=== PATIENT | male | born 1970 | race Caucasian/White ===

== ENCOUNTER → 2019-09-10 12:02 | Outpatient (CLI) | payer OTHER, SELFPAY ==
[2015-09-08 00:31] VITALS: BMI 41.5
[2019-09-10 15:16] LABS: Absolute Lymphocyte Count 1.48 X10^3/uL (0.83-4.51); Absolute Neutrophil Count 5.1 X10^3/uL (2.0-7.7); Basophil# 0.05 X10^3/uL; Basophil% 0.7 % (0-1); Eosinophil# 0.06 X10^3/uL; Eosinophils% 0.8 % (0-5); Hematocrit 48.1 % (40-54); Hemoglobin 15.9 g/dL (13.0-16.5); Lymphocyte # 1.48 X10^3/ul (4.0); Lymphocyte % 20.2 % (19-41); Mean Corp Hgb Conc 33.1 g/dL (32-36); Mean Corpuscular Hgb 29.1 pg (27.0-32.0); Mean Corpuscular Volume 88.1 fL (80-94); Mean Platelet Vol. 10.6 fl (6.2-12.0); Monocyte% 8.2 % (0-10); NRBC Flagged by Analyzer 0 % (0-5); Neutrophil # 5.08 X10^3/uL (2.7-7.7); Neutrophil % 69.3 % (47-70); Platelet Count 320 K/mm3 (150-450); RBC Distribution Width CV 13.5 % (11.6-14.6); RBC Distribution Width SD 43.5 fl (35.1-43.9); Red Blood Count 5.46 M/mm3 (4.6-6.2); White Blood Count 7.3 K/mm3 (4.4-11.0)
[2019-09-10 16:00] LABS: AST(SGOT) 22 U/L (15-37); Alanine Aminotransfer ALT/SGPT 38 U/L (16-61); Albumin, Serum 4.1 g/dL (3.2-5.0); Alkaline Phosphatase 73 U/L (45-117); Anion Gap 6 (5-15); BUN 9 mg/dL (7-18); BUN/Creat Ratio 9.3 RATIO (10-20); Calcium,Total 9.5 mg/dL (8.5-10.1); Chloride 102 mmol/L (98-107); Cholesterol 176 mg/dL (200); Creatinine, Serum 0.97 mg/dL (0.70-1.30); EST Glomerular Filtration Rate 87 mL/min (>60); Est Glom Filt Rate - Afr Amer 105 mL/min (>60); Globulin 4.2 g/dL (2.2-4.2); Glucose 101 mg/dL (74-106); High Density Lipoprotein 30 mg/dL; Potassium 3.4 mmol/L (3.5-5.1); Protein, Total 8.3 g/dL (6.4-8.2); Sodium Level 137 mmol/L (136-145); T4 Free Direct 0.92 ng/dL (0.76-1.46); Triglycerides 157 mg/dL; Very Low Density Lipoprotein 31 mg/dL (5-40)
[2019-09-11 10:25] LABS: Hemoglobin A1c 5.9 % (4.2-6.3)
[2019-09-12 16:42] LABS: Anti-Thyroglobulin AB < 1.0 IU/mL (0.0-0.9); Thyroglobulin, Serum Qt. 8.1 ng/mL (1.4-29.2); Thyroid Peroxidase AB < 9 IU/mL (0-34)
== END ==
PROVIDERS: PCP Family Medicine; Referring Provider Family Medicine; Visit Provider Family Medicine
DX: E01.0 Iodine-deficiency related diffuse (endemic) goiter (principal); F17.200 Nicotine dependence, unspecified, uncomplicated; I10 Essential (primary) hypertension
CPT/HCPCS: 36415; 80053; 80061; 83036; 84432; 84439; 84443; 85025; 86376; 86800

== ENCOUNTER → 2019-10-02 14:53 | Outpatient (CLI) | payer OTHER, SELFPAY ==
--- NOTE | 2019-10-02 15:01 | US_ITS ---
STUDY: THYROID ULTRASOUND REASON FOR EXAM: Male, 49 years old. Thyromegaly TECHNIQUE: Ultrasound evaluation of the thyroid was performed with real-time and static stock[place]-scale imaging. COMPARISON: None. FINDINGS: RIGHT LOBE: The right lobe of the thyroid gland is slightly enlarged and measures 5 cm x 2.2 cm x 1.7 cm. There is a homogeneous echotexture. There are no demonstrated solid, cystic or complex lesions. LEFT LOBE: The left lobe of the thyroid gland is slightly enlarged and measures 4.9 cm x 2.2 cm x 1.9 cm. There is a homogeneous echotexture. There are no demonstrated solid, cystic or complex lesions. ISTHMUS: The isthmus is enlarged and measures 5.0 mm. The regional lymph nodes are normal. US/Thyroid IMPRESSION: Mild thyromegaly. No solid or cystic nodule is seen. Electronically Signed: Tom Neves, at 15:58 EDT , Service support ,
== END ==
PROVIDERS: PCP Family Medicine; Referring Provider Family Medicine; Visit Provider Family Medicine
DX: E01.0 Iodine-deficiency related diffuse (endemic) goiter (principal)
CPT/HCPCS: 76536

== ENCOUNTER → 2019-11-07 16:21 | Outpatient (CLI) | payer OTHER, SELFPAY ==
[2019-11-07 18:18] LABS: Potassium 2.9 mmol/L (3.5-5.1)
== END ==
PROVIDERS: PCP Family Medicine; Referring Provider Family Medicine; Visit Provider Family Medicine
DX: I10 Essential (primary) hypertension (principal)
CPT/HCPCS: 36415; 84132

== ENCOUNTER → 2019-11-19 15:17 | Outpatient (CLI) | payer OTHER, SELFPAY ==
[2015-09-08 00:31] VITALS: BMI 41.5
[2019-11-19 18:44] LABS: Potassium 3.3 mmol/L (3.5-5.1)
== END ==
PROVIDERS: PCP Family Medicine; Referring Provider Family Medicine; Visit Provider Family Medicine
DX: E87.6 Hypokalemia (principal)
CPT/HCPCS: 36415; 84132

== ENCOUNTER → 2019-12-09 08:41 | Outpatient (CLI) | payer OTHER, SELFPAY ==
[2015-09-08 00:31] VITALS: BMI 41.5
[2019-12-09 10:09] LABS: Potassium 3.5 mmol/L (3.5-5.1)
== END ==
PROVIDERS: PCP Family Medicine; Referring Provider Family Medicine; Visit Provider Family Medicine
DX: E87.6 Hypokalemia (principal)
CPT/HCPCS: 36415; 84132

== ENCOUNTER → 2020-09-15 16:41 | Outpatient (CLI) | payer BC, SELFPAY ==
[2015-09-08 00:31] VITALS: BMI 41.5
[2020-09-15 18:01] LABS: Absolute Lymphocyte Count 1.66 X10^3/uL (0.83-4.51); Basophil# 0.04 X10^3/uL; Basophil% 0.5 % (0-1); Eosinophil# 0.05 X10^3/uL; Eosinophils% 0.7 % (0-5); Hematocrit 48.8 % (40-54); Hemoglobin 16.4 g/dL (13.0-16.5); Lymphocyte # 1.66 X10^3/ul (4.0); Lymphocyte % 22.3 % (19-41); Mean Corp Hgb Conc 33.6 g/dL (32-36); Mean Corpuscular Hgb 30.2 pg (27.0-32.0); Mean Corpuscular Volume 89.9 fL (80-94); Mean Platelet Vol. 10.3 fl (6.2-12.0); Monocyte% 9.4 % (0-10); NRBC Flagged by Analyzer 0 % (0-5); Neutrophil # 4.98 X10^3/uL (2.7-7.7); Neutrophil % 66.7 % (47-70); Platelet Count 351 K/mm3 (150-450); RBC Distribution Width CV 13.4 % (11.6-14.6); RBC Distribution Width SD 44.3 fl (35.1-43.9); Red Blood Count 5.43 M/mm3 (4.6-6.2); White Blood Count 7.5 K/mm3 (4.4-11.0)
[2020-09-15 18:36] LABS: Hemoglobin A1c 5.4 % (3.8-5.6)
[2020-09-15 18:37] LABS: ALB/GLOB Ratio 0.9 RATIO (0.9-2.4); AST(SGOT) 22 U/L (15-37); Alanine Aminotransfer ALT/SGPT 40 U/L (16-61); Alkaline Phosphatase 77 U/L (45-117); Anion Gap 8 (5-15); BUN 15 mg/dL (7-18); BUN/Creat Ratio 14.4 RATIO (10-20); Calcium,Total 9.2 mg/dL (8.5-10.1); Chloride 102 mmol/L (98-107); Cholesterol 193 mg/dL (200); Creatinine, Serum 1.04 mg/dL (0.70-1.30); EST Glomerular Filtration Rate 80 mL/min (>60); Est Glom Filt Rate - Afr Amer 97 mL/min (>60); Globulin 4.3 g/dL (2.2-4.2); Glucose 80 mg/dL (74-106); High Density Lipoprotein 30 mg/dL; Protein, Total 8.3 g/dL (6.4-8.2); Sodium Level 139 mmol/L (136-145); Thyroid Stim Hormone (TSH) 0.84 uIU/mL (0.358-3.74); Triglycerides 179 mg/dL; Very Low Density Lipoprotein 36 mg/dL (5-40)
== END ==
PROVIDERS: PCP Family Medicine; Visit Provider Family Medicine
DX: I10 Essential (primary) hypertension (principal); E66.01 Morbid (severe) obesity due to excess calories; R73.02 Impaired glucose tolerance (oral)
CPT/HCPCS: 36415; 80053; 80061; 83036; 84443; 85025

== ENCOUNTER → 2020-09-30 15:30 | Outpatient (CLI) | payer BC, SELFPAY ==
[2015-09-08 00:31] VITALS: BMI 41.5
[2020-09-30 18:01] LABS: Potassium 3.5 mmol/L (3.5-5.1)
== END ==
PROVIDERS: PCP Family Medicine; Referring Provider Family Medicine; Visit Provider Family Medicine
DX: E87.6 Hypokalemia (principal)
CPT/HCPCS: 36415; 84132

== ENCOUNTER 2021-08-06 07:47 | Outpatient (CLI) | payer BC, SELFPAY ==
[2021-08-06 07:50] LABS: Bacteria 0 SEEN /hpf (None Seen); Mucous, Urine 0 SEEN /hpf (<or=2+); Red Blood Cells-Urine 0 SEEN /hpf (0-5); Squamous Epithelial Cells - UA 0 SEEN /hpf (0-5); White Blood Cells 0 SEEN /hpf (0-5)
[2021-08-06 09:58] LABS: Color, Urine Yellow (Yellow); Glucose, Dipstick Normal (Normal); Ketone-Dipstick Negative (Negative); Leukocyte Esterase-Dipstick Negative /ul (Negative); Nitrite-Dipstick Negative (Negative); Occult Blood-Urine Negative /ul (Negative); Protein-Dipstick Negative (Negative); Urine Bilirubin Dipstick Negative (Negative); Urine Clarity Clear (Clear); Urine Urobilinogen Normal (Normal)
[2021-08-06 10:03] LABS: Absolute Lymphocyte Count 1.28 X10^3/uL (0.83-4.51); Absolute Neutrophil Count 3.6 X10^3/uL (2.0-7.7); Basophil# 0.03 X10^3/uL; Basophil% 0.5 % (0-1); Eosinophil# 0.05 X10^3/uL; Eosinophils% 0.9 % (0-5); Hematocrit 49.2 % (40-54); Hemoglobin 16.8 g/dL (13.0-16.5); Lymphocyte # 1.28 X10^3/ul (0.83-4.51); Lymphocyte % 23.2 % (19-41); Mean Corp Hgb Conc 34.1 g/dL (32-36); Mean Corpuscular Hgb 30.8 pg (27.0-32.0); Mean Corpuscular Volume 90.1 fL (80-94); Mean Platelet Vol. 10.8 fl (6.2-12.0); Monocyte# 0.57 X10^3/uL; Monocyte% 10.3 % (0-10); NRBC Flagged by Analyzer 0 % (0-5); Neutrophil # 3.57 X10^3/uL (2.7-7.7); Neutrophil % 64.7 % (47-70); Platelet Count 279 K/mm3 (150-450); RBC Distribution Width CV 13.7 % (11.6-14.6); RBC Distribution Width SD 45.2 fl (35.1-43.9); Red Blood Count 5.46 M/mm3 (4.6-6.2); White Blood Count 5.5 K/mm3 (4.4-11.0)
[2021-08-06 10:19] LABS: Hemoglobin A1c 5.7 % (3.8-5.6)
[2021-08-06 10:30] LABS: ALB/GLOB Ratio 0.9 RATIO (0.9-2.4); AST(SGOT) 23 U/L (15-37); Alanine Aminotransfer ALT/SGPT 36 U/L (16-61); Albumin, Serum 3.6 g/dL (3.2-5.0); Alkaline Phosphatase 66 U/L (45-117); Anion Gap 5 (5-15); BUN 15 mg/dL (7-18); BUN/Creat Ratio 15.2 RATIO (10-20); Calcium,Total 8.7 mg/dL (8.5-10.1); Chloride 103 mmol/L (98-107); Cholesterol 168 mg/dL (200); Creatinine, Serum 0.99 mg/dL (0.70-1.30); EST Glomerular Filtration Rate 85 mL/min (>60); Est Glom Filt Rate - Afr Amer 103 mL/min (>60); Glucose 105 mg/dL (74-106); High Density Lipoprotein 31 mg/dL; Potassium 3.5 mmol/L (3.5-5.1); Protein, Total 7.6 g/dL (6.4-8.2); Sodium Level 137 mmol/L (136-145); Triglycerides 146 mg/dL; Very Low Density Lipoprotein 29 mg/dL (5-40)
== END 2021-08-06 23:59 | disposition home or self-care (01) ==
LOC: MTLAB 07:48
PROVIDERS: PCP Family Medicine; Referring Provider Family Medicine; Visit Provider Family Medicine
DX: I10 Essential (primary) hypertension (principal); R73.02 Impaired glucose tolerance (oral)
CPT/HCPCS: 36415; 80053; 80061; 81001; 83036; 84443; 85025

== ENCOUNTER → 2022-03-04 | Outpatient (CLI) | payer BC, SELFPAY ==
[2022-03-04 10:07] LABS: Absolute Lymphocyte Count 1.26 X10^3/uL (0.83-4.51); Absolute Neutrophil Count 4.6 X10^3/uL (2.0-7.7); Basophil# 0.04 X10^3/uL; Basophil% 0.6 % (0-1); Eosinophils% 1.5 % (0-5); Hematocrit 46.7 % (40-54); Hemoglobin 15.8 g/dL (13.0-16.5); Lymphocyte # 1.26 X10^3/ul (0.83-4.51); Lymphocyte % 18.7 % (19-41); Mean Corp Hgb Conc 33.8 g/dL (32-36); Mean Corpuscular Hgb 30.8 pg (27.0-32.0); Mean Platelet Vol. 10.4 fl (6.2-12.0); Monocyte# 0.67 X10^3/uL; Monocyte% 9.9 % (0-10); NRBC Flagged by Analyzer 0 % (0-5); Neutrophil # 4.64 X10^3/uL (2.7-7.7); Neutrophil % 68.9 % (47-70); Platelet Count 334 K/mm3 (150-450); RBC Distribution Width CV 13.6 % (11.6-14.6); RBC Distribution Width SD 45.3 fl (35.1-43.9); Red Blood Count 5.13 M/mm3 (4.6-6.2); White Blood Count 6.7 K/mm3 (4.4-11.0)
[2022-03-04 10:26] LABS: Hemoglobin A1c 5.8 % (3.8-5.6)
[2022-03-04 10:31] LABS: ALB/GLOB Ratio 0.8 RATIO (0.9-2.4); AST(SGOT) 19 U/L (15-37); Alanine Aminotransfer ALT/SGPT 43 U/L (16-61); Albumin, Serum 3.6 g/dL (3.2-5.0); Alkaline Phosphatase 72 U/L (45-117); Anion Gap 7 (5-15); BUN 14 mg/dL (7-18); BUN/Creat Ratio 13.7 RATIO (10-20); Calcium,Total 8.6 mg/dL (8.5-10.1); Chloride 103 mmol/L (98-107); Cholesterol 176 mg/dL (200); Creatinine, Serum 1.02 mg/dL (0.70-1.30); EST Glomerular Filtration Rate 82 mL/min (>60); Est Glom Filt Rate - Afr Amer 99 mL/min (>60); Globulin 4.3 g/dL (2.2-4.2); Glucose 105 mg/dL (74-106); High Density Lipoprotein 27 mg/dL; Potassium 3.4 mmol/L (3.5-5.1); Protein, Total 7.9 g/dL (6.4-8.2); Sodium Level 140 mmol/L (136-145); Thyroid Stim Hormone (TSH) 1.12 uIU/mL (0.358-3.74); Triglycerides 186 mg/dL; Very Low Density Lipoprotein 37 mg/dL (5-40)
== END | disposition home or self-care (01) ==
LOC: MTLAB 08:02
PROVIDERS: PCP Family Medicine; Referring Provider Family Medicine; Visit Provider Family Medicine
DX: I10 Essential (primary) hypertension (principal); R73.02 Impaired glucose tolerance (oral)
CPT/HCPCS: 36415; 80053; 80061; 83036; 84443; 85025

== ENCOUNTER → 2022-07-09 | Outpatient (CLI) | payer BC, SELFPAY ==
[2022-07-09 08:06] LABS: Bacteria 0 SEEN /hpf (None Seen); Mucous, Urine 0 SEEN /hpf (<or=2+); Red Blood Cells-Urine 0 SEEN /hpf (0-5); Squamous Epithelial Cells - UA 0 SEEN /hpf (0-5); White Blood Cells 0 SEEN /hpf (0-5)
[2022-07-09 08:23] LABS: Absolute Lymphocyte Count 1.36 X10^3/uL (0.83-4.51); Absolute Neutrophil Count 3.4 X10^3/uL (2.0-7.7); Basophil# 0.03 X10^3/uL; Basophil% 0.5 % (0-1); Eosinophil# 0.07 X10^3/uL; Eosinophils% 1.2 % (0-5); Hematocrit 45.9 % (40-54); Hemoglobin 15.3 g/dL (13.0-16.5); Lymphocyte # 1.36 X10^3/ul (0.83-4.51); Lymphocyte % 24.2 % (19-41); Mean Corp Hgb Conc 33.3 g/dL (32-36); Mean Corpuscular Hgb 30.2 pg (27.0-32.0); Mean Corpuscular Volume 90.7 fL (80-94); Mean Platelet Vol. 10.1 fl (6.2-12.0); Monocyte# 0.73 X10^3/uL; NRBC Flagged by Analyzer 0 % (0-5); Neutrophil # 3.42 X10^3/uL (2.7-7.7); Neutrophil % 60.7 % (47-70); Platelet Count 338 K/mm3 (150-450); RBC Distribution Width CV 14.1 % (11.6-14.6); RBC Distribution Width SD 46.2 fl (35.1-43.9); Red Blood Count 5.06 M/mm3 (4.6-6.2); White Blood Count 5.6 K/mm3 (4.4-11.0)
[2022-07-09 08:50] LABS: Color, Urine Yellow (Yellow); Glucose, Dipstick Normal (Normal); Ketone-Dipstick Negative (Negative); Leukocyte Esterase-Dipstick Negative /ul (Negative); Nitrite-Dipstick Negative (Negative); Occult Blood-Urine Negative /ul (Negative); Protein-Dipstick 15 mg/dl (Negative); Specific Gravity, Urine 1.015 (1.002-1.030); Urine Bilirubin Dipstick Negative (Negative); Urine Clarity Clear (Clear); Urine Urobilinogen Normal (Normal); Urine pH 6.5 (5.0 - 8.0)
[2022-07-09 08:53] LABS: ALB/GLOB Ratio 0.8 RATIO (0.9-2.4); AST(SGOT) 15 U/L (15-37); Alanine Aminotransfer ALT/SGPT 33 U/L (16-61); Albumin, Serum 3.4 g/dL (3.2-5.0); Alkaline Phosphatase 65 U/L (45-117); Anion Gap 5 (5-15); BUN 11 mg/dL (7-18); BUN/Creat Ratio 11.6 RATIO (10-20); Calcium,Total 8.4 mg/dL (8.5-10.1); Chloride 104 mmol/L (98-107); Cholesterol 181 mg/dL (200); Creatinine, Serum 0.95 mg/dL (0.70-1.30); EST Glomerular Filtration Rate 89 mL/min (>60); Est Glom Filt Rate - Afr Amer 107 mL/min (>60); Globulin 4.1 g/dL (2.2-4.2); Glucose 111 mg/dL (74-106); High Density Lipoprotein 29 mg/dL; Potassium 3.8 mmol/L (3.5-5.1); Protein, Total 7.5 g/dL (6.4-8.2); Sodium Level 138 mmol/L (136-145); Thyroid Stim Hormone (TSH) 0.76 uIU/mL (0.358-3.74); Triglycerides 142 mg/dL; Very Low Density Lipoprotein 28 mg/dL (5-40)
[2022-07-09 08:55] LABS: Hemoglobin A1c 5.7 % (3.8-5.6)
== END | disposition home or self-care (01) ==
LOC: LAB 07:37
PROVIDERS: PCP Family Medicine; Visit Provider Family Medicine
DX: I10 Essential (primary) hypertension (principal); R73.02 Impaired glucose tolerance (oral)
CPT/HCPCS: 80053; 80061; 81001; 83036; 84443; 85025

== ENCOUNTER → 2023-01-14 | Outpatient (CLI) | payer BC, SELFPAY ==
[2023-01-14 08:03] LABS: Absolute Lymphocyte Count 1.42 X10^3/uL (0.83-4.51); Absolute Neutrophil Count 3.7 X10^3/uL (2.0-7.7); Basophil# 0.05 X10^3/uL; Basophil% 0.8 % (0-1); Eosinophil# 0.08 X10^3/uL; Eosinophils% 1.3 % (0-5); Hemoglobin 15.4 g/dL (13.0-16.5); Lymphocyte # 1.42 X10^3/ul (0.83-4.51); Lymphocyte % 23.9 % (19-41); Mean Corp Hgb Conc 33.5 g/dL (32-36); Mean Corpuscular Hgb 30.4 pg (27.0-32.0); Mean Corpuscular Volume 90.7 fL (80-94); Mean Platelet Vol. 10.3 fl (6.2-12.0); Monocyte# 0.69 X10^3/uL; Monocyte% 11.6 % (0-10); NRBC Flagged by Analyzer 0 % (0-5); Neutrophil # 3.68 X10^3/uL (2.7-7.7); Neutrophil % 62.1 % (47-70); Platelet Count 282 K/mm3 (150-450); RBC Distribution Width CV 13.6 % (11.6-14.6); RBC Distribution Width SD 45.1 fl (35.1-43.9); Red Blood Count 5.07 M/mm3 (4.6-6.2); White Blood Count 5.9 K/mm3 (4.4-11.0)
[2023-01-14 08:32] LABS: Hemoglobin A1c 5.4 % (3.8-5.6)
[2023-01-14 08:41] LABS: ALB/GLOB Ratio 0.8 RATIO (0.9-2.4); AST(SGOT) 18 U/L (15-37); Alanine Aminotransfer ALT/SGPT 33 U/L (16-61); Albumin, Serum 3.3 g/dL (3.2-5.0); Alkaline Phosphatase 70 U/L (45-117); Anion Gap 6 (5-15); BUN 12 mg/dL (7-18); BUN/Creat Ratio 12.6 RATIO (10-20); Calcium,Total 8.2 mg/dL (8.5-10.1); Chloride 105 mmol/L (98-107); Cholesterol 181 mg/dL (200); Creatinine, Serum 0.95 mg/dL (0.70-1.30); EST Glomerular Filtration Rate 88 mL/min (>60); Est Glom Filt Rate - Afr Amer 106 mL/min (>60); Globulin 3.9 g/dL (2.2-4.2); Glucose 112 mg/dL (74-106); High Density Lipoprotein 28 mg/dL; Potassium 3.3 mmol/L (3.5-5.1); Protein, Total 7.2 g/dL (6.4-8.2); Sodium Level 138 mmol/L (136-145); Thyroid Stim Hormone (TSH) 1.03 uIU/mL (0.358-3.74); Triglycerides 141 mg/dL; Very Low Density Lipoprotein 28 mg/dL (5-40)
== END | disposition home or self-care (01) ==
LOC: LAB 06:52
PROVIDERS: PCP Family Medicine; Referring Provider Family Medicine; Visit Provider Family Medicine
DX: I10 Essential (primary) hypertension (principal); R73.02 Impaired glucose tolerance (oral)
CPT/HCPCS: 36415; 80053; 80061; 83036; 84443; 85025

== ENCOUNTER → 2023-07-08 | Outpatient (CLI) | payer BC, SELFPAY ==
--- OUTSIDE RECORDS SUMMARY | 2023-07-08 07:27 | XMS RPT_ITS | CCD ---
Author Name Unknown Address [address] [place] [address] Organization [facility] Care Team Providers Care Tip Tester Name Role Phone OWEN SHETTY, KAITLYN Mcdonald Primary Care Physicia n PHYSICIAN, PATIENT UNSURE Primary Care Physician Unavailable WILMAN MALONE, DR LAMBERT Shannon Attending Maikel lujan PHYSICIAN, PATIENT UNSURE Primary Care Maikel SHETTY, KAITLYN Mcdonald Primary Care Florinava ilcipriano KAMARA MD, TORREY Skinner Attending Unavail cipriano ARANA MD, ROCIO Attending Unavailable OWEN SHETTY, KAITLYN Mcdonald Primary Care Unava ilable Allergies Allergy Classification Reported Allergen(s) Allergy Type Date of Onset Reaction(s) [place] (3 sources[place] [facility] [place]) Drug allergy [facility] Medications Current Medications Medication Drug Class(es) Dates Sig (Normalized) Sig (Original) acetaminophen 325 mg / HYDROcodone bitartrate 5 mg oral tablet (1 source) Opioid Agonist Start: 11-30-2022 End: 12-03-2022 take 1 tablet by mouth every six hours as needed for pain [place] 325- 5 mg oral tablet Dose = 1 tab(s), Oral, q6h, PRN as needed for pain, X 3 day(s), # 12 tab(s), 0 Refill(s), Plantar fasciitis, 133.9 Start Date: 11/30/22 Stop Date: 12/03/22 Status: Ordered amLODIPine 5 mg oral tablet (3 sources) Dihydropyridine Calcium Channel Jaye Start: 04-28-2020 take 1 tablet by mouth once daily amLODIPine 5 mg oral tablet See Instructions, take 1 tablet by mouth once daily, # 90 tab(s), 1 Refill(s), [facility] [address], cm, 12/07/18 14:52:00 EDT, Height, kg, 11/23/18 15:10:00 EDT, Dosing Weight Start Date: 04/28/20 Status: Ordered cephalexin 500 mg oral tablet (1 source) Cephalosporin Antibacterial Start: 01-26-2022 End: 02-02-2022 take 1 capsule by mouth four times daily Keflex use cephalexin Dose : 500 mg =, Oral, QID, X 7 day(s), # 28 cap(s), 0 Refill(s), 02/02/22 18:47:00 EDT, Puncture wound of right foot Foreign body in foot, 130.9 Start Date: 01/26/22 Stop Date: 02/02/22 Status: Ordered fluticasone propionate 0.05 mg/actuat metered dose nasal spray (3 sources) Corticosteroid Start: 11-23-2018 take 1 dose nasal route twice daily fluticasone 50 mcg/inh NASAL spray Dose = 1 spray(s), Nostril, each, BID, 0 Refill(s) Start Date: 11/23/18 Status: Ordered hydroCHLOROthiazide 12.5 mg / lisinopril 20 mg oral tablet (3 sources) Thiazide Diuretic, Angiotensin Converting Enzyme Inhibitor Start: 08-26-2019 take 2 tablets by mouth once daily hydrochlorothia zide-lisinopril 12.5 mg-20 mg oral tablet See Instructions, take 2 tablets by mouth once daily, # 180 tab(s), 0 Refill(s), [facility]: [facility], cm, 12/07/18 14:52:00 EDT, Height, kg, 11/23/18 15:10:00 EDT, Dosing Weight Start Date: 08/26/19 Status: Ordered Mucinex Sinus-Max 325 mg-10 mg-5 mg oral capsule (1 source) Start: 06-20-2022 End: 06-25-2022 take 1 capsule by mouth every four hours Mucinex Sinus-Max 325 mg-10 mg-5 mg oral capsule Dose = 2 cap(s), Oral, q4h, do not take tylenol while on this medication, X 5 day(s), # 60 cap(s), 0 Refill(s), Sinus congestion Start Date: 06/20/22 Stop Date: 06/25/22 Status: Ordered oxymetazoline hydrochloride 0.5 mg/ml nasal spray (1 source) Start: 06-20-2022 End: 06-23-2022 Afrin 0.05% nasal Mist Dose = 2 spray(s), Nasal, BID, X 3 day(s), # 15 mL, 0 Refill(s), Sinus congestion Start Date: 06/20/22 Stop Date: 06/23/22 Status: Ordered potassium chloride 10 meq oral tablet (3 sources) Start: 12-09-2019 take 1 tablet by mouth once daily potassium chloride 10 mEq oral tablet, extended release See Instructions, take 1 tablet by mouth once daily, # 30 tab(s), 0 Refill(s), [facility], cm, 12/07/18 14:52:00 EDT, Height, kg, 11/23/18 15:10:00 EDT, Dosing Weight Start Date: 12/09/19 Status: Ordered Problems Problem Classification Problem Date Documented Da te Episodic/Chronic Essential hypertension (3 sources) Hypertensive disorder 09-07-2015 Chronic Open wounds of extremities (1 source) Open wound of foot; Translations: [Puncture wound without foreign body, right foot, initial encounter] Onset: 01-26-2022 Episodic Other connective tissue disease (1 source) Plantar fascial fibromatosis; Translations: [Plantar fascial fibromatosis] Onset: 11-30-2022 Episodic Other upper respiratory disease (3 sources) Seasonal allergy 11-23-2018 Chronic Other upper respiratory disease (1 source) Nasal congestion; Translations: [Nasal congestion] Onset: 06-20-2022 Episodic Residual codes; unclassified (3 sources) Obstructive sleep apnea syndrome 11-23-2018 Chronic Spondylosis; intervertebral disc disorders; other back problems (3 sources) Backache 11-23-2018 Episodic Superficial injury; contusion (1 source) Superficial foreign body in foot; Translations: [Superficial foreign body, unspecified foot, initial encounter] Onset: 01-26-2022 Episodic Results Test Name Value Interpretation Reference Range Facil ity Vital Signs Date Time Vital Sign Value Performing Clinician Faci lity 11-30-2022 04:35-0400 Body height 172.[address] LAMBERT STOVALL MD [facility] 11-30-2022 04:35-0400 Body temperature 98.6 [degF] DR LAMBERT STOVALL MD [facility] 11-30-2022 04:35-0400 Body weight 133.[address] LAMBERT STOVALL MD [facility] 11-30-2022 04:35-0400 Diastolic Blood Pressure Non-Invasive [address] LAMBERT STOVALL MD [facility] 11-30-2022 04:35-0400 Heart rate 83 /min DR LAMBERT STOVALL MD [facility] 11-30-2022 04:35-0400 Respiratory rate 18 /min DR LAMBERT STOVALL MD [facility] 11-30-2022 04:35-0400 Systolic Blood Pressure Non-Invasive [address] LAMBERT STOVALL MD [facility] 06-20-2022 15:12-0500 Body height 172.7 cm TORREY KAMARA MD [facility] 06-20-2022 15:12-0500 Body temperature 98.78 [degF] TORREY KAMARA MD [facility] 06-20-2022 15:12-0500 Body weight 136.4 kg TORREY KAMARA MD [facility] 06-20-2022 15:12-0500 Diastolic Blood Pressure Non-Invasive 86 1 TORREY KAMARA MD [facility] 06-20-2022 15:12-0500 Heart rate 90 /min TORREY KAMARA MD [facility] 06-20-2022 15:12-0500 Respiratory rate 20 /min TORREY KAMARA MD [facility] 06-20-2022 15:12-0500 Systolic Blood Pressure Non-Invasive 148 1 TORREY KAMARA MD [facility] 01-26-2022 19:17-0400 Diastolic blood pressure 88 mm[Hg] ROCIO ARANA MD [facility] 01-26-2022 19:17-0400 Heart rate 85 /min ROCIO ARANA MD [facility] 01-26-2022 19:17-0400 Respiratory rate 18 /min ROCIO ARANA MD [facility] 01-26-2022 19:17-0400 Systolic blood pressure 143 mm[Hg] ROCIO ARANA MD [facility] 01-26-2022 17:31-0400 Body temperature 98.42 [degF] ROCIO ARANA MD [facility] 01-26-2022 17:31-0400 Diastolic blood pressure 89 mm[Hg] ROCIO ARANA MD [facility] 01-26-2022 17:31-0400 Heart rate 89 /min ROCIO ARANA MD [facility] 01-26-2022 17:31-0400 Respiratory rate 20 /min ROCIO ARANA MD [facility] 08-03-2022 17:31-0400 Systolic blood pressure 146 mm[Hg] ROCIO ARANA MD [facility] Encounters Encounter Date Encounter Type Care Provider Facility Start: 11-30-2022 End: 11-30-2022 Emergency department patient visit DR LAMBERT STOVALL MD Facility:B Start: 11-30-2022 End: 11-30-2022 Emergency department patient visit DR LAMBERT STOVALL MD [facility] Start: 06-20-2022 End: 06-20-2022 Emergency department patient visit KAITLYN WEAVER APRN-REFRIGERATOR ASSEMBLER Facility:[facility] Start: 06-20-2022 End: 06-20-2022 Emergency department patient visit TORREY KAMARA MD [facility] Start: 01-26-2022 End: 01-26-2022 Emergency department patient visit ROCIO ARANA MD Facility:[facility] Start: 01-26-2022 End: 01-26-2022 Emergency department patient visit ROCIO ARANA MD [facility] Procedures Date Procedure Procedure Detail Performing Clinician Tonsillectomy ROCIO ARANA MD Payers Date Payer Category Payer Unknown [id number] 1970 Unknown [id number] 1970 Unknown [id number] 1970 Unknown [id number] Social History Date Type Detail Facility Tobacco Tobacco Use: 1 c an of chew can last a day or day and a half. Type: Oral. [facility] Tobacco smoking status Never smo ked tobacco (finding) [facility] Sex Assigned At Male [facility] Functional Status Date Assessment Result Facility 11-30-2022 Functional Status Standard Safet y ID band on, Allergy Band on, Call device within reach, Bed in low position, Wheels locked, Upper/Half-Length side-rails up, personal items within reach [facility] 06-20-2022 Functional Status Up ad david [facility] 06-20-2022 Functional Status Standard Safet y ID band on, Call device within reach, Bed in low position, Wheels locked [facility] 01-26-2022 Functional Status Standard Safet y ID band on, Call device within reach, Bed in low position, Wheels locked, Upper/Half-Length side-rails up, Visitor at bedside, Safety level maintained [facility] Mental Status Date Assessment Result Facility 11-30-2022 Mental Status Orientation Oriented x 4 [facility] 06-20-2022 Mental Status Orientation Oriented x 4 [facility] 06-20-2022 Mental Status [facility] 01-26-2022 Mental Status Orientation Oriented x 4 [facility] Clinical Notes 01-26-2022 to 11-30-2022 Note Date & Type Note Facility 11-30-2022 Hospital Discharge instructions Patient Education 11/30/2022 05:01:26 Plantar Fasciitis Plantar Fasciitis Plantar fasciitis is a painful swelling of the plantar fascia. The plantar fascia is a thick, fibrous layer of tissue that covers the bones on the bottom of your foot. It supports the foot bones in an arched position. Plantar fasciitis can happen gradually or suddenly. It usually affects one foot at a time. Heel pain can be sharp, like a knife sticking into the bottom of your foot. You may feel pain after exercising, long-distance jogging, stair climbing, long periods of standing, or after standing up. Risk factors include: non-active lifestyle, arthritis, diabetes, obesity or recent weight gain, flat foot, high arch. Wearing high heels, loose shoes, or shoes with poor arch support for long periods of time adds to the risk. This problem is commonly found in runners and dancers. It also found in people who stand on hard surfaces for long periods of time. Foot pain from this condition is usually worse in the morning. But it often improves with walking. By the end of the day there may be a dull aching. Treatment requires short-term rest and controlling swelling. It may take up to 9 months before all symptoms go away. Rarely, a steroid injection into the foot, or surgery, may be needed. Home care If you are overweight, lose weight to help healing. Choose supportive shoes with good arch support and shock absorbency. Replace athletic shoes when they become worn out. Don t walk or run barefoot. Premade or custom-fitted shoe inserts may be helpful. Inserts made of silicone seem to be the most effective. Custom-made inserts can be provided by child development specialist, physical therapist, or orthopedist. Premade or custom-made night splints keep the heel stretched out while you sleep. They may prevent morning pain. Limit activities that stress the feet: jogging, prolonged standing or walking, contact sports, etc. First thing in the morning and before sports, stretch the bottom of your feet. Gently flex your ankle so the toes move toward your knee. Icing may help control heel pain. Apply an ice pack to the heel for 10 to 20 minutes as a preventive. Or ice your heel after a severe flare-up of symptoms. You may repeat this every 1 to 2 hours as needed. You may use gqdo-jnr-xotqnav pain medicine to control pain, unless another medicine was prescribed. Anti-inflammatory pain medicines, such as ibuprofen or naproxen, may work better than acetaminophen. If you have chronic liver or kidney disease or ever had a stomach ulcer or gastrointestinal bleeding, talk with your healthcare provider before using these medicines. Follow-up care Follow up with your healthcare provider, or as advised. Call for an appointment if pain worsens or there is no relief after a few weeks of home treatment. Shoe inserts, a night splint, or a special boot may be required. If X-rays were taken, you will be told of any new findings that may affect your care. When to seek medical advice Call your healthcare provider right away if any of these occur: Foot swelling Redness or warmth with increasing pain [phone] [employer]. [address] [place] [address], [place] [address]. All rights reserved. This information is not intended as a substitute for professional medical care. Always follow your healthcare professional's instructions. Follow Up Care 11/30/2022 04:09:57 With:VIMAL HARTMANN Address: [address] [place] [address], [address] [facility] [place], [place] [address]- Business (1) When:2-4 days Comments:Return to ED if symptoms worsen [facility] 11-30-2022 Note Discharge Instructions Thank you for allowing [facility] to assist you with your healthcare needs. The following is important discharge information regarding your hospital visit. Diagnosis from Today's Visit Plantar fasciitis Foot pain-swelling What to Do Next Instructions from Your Care Team No qualifying data available. Post Acute Orders No qualifying data available. You Need to Schedule the Following Appointments Follow Up with VIMAL HARTMANN When Within 2-4 days Why: Return to ED if symptoms worsen Where: [address] [place] [address], [address] [facility] [place], [place] [id number]- Business (1) [place]ies [facility] [place] (non-codified) Medications Please ask your primary doctor or pharmacist before taking any other medication not listed, including over the counter drugs, herbal medications, vitamins and or supplements as they may interact with your home medications. What How Much When Why Instructions Last Dose New acetaminophen-hydrocodone ([place] 325- 5 mg oral tablet) 1 tab(s) by mouth Every 6 hours as needed for as needed for pain Plantar fasciitis Duration: 3 Days Printed Prescription Unchanged amLODIPine (amLODIPine 5 mg oral tablet) See instructions take 1 tablet by mouth once daily Unchanged fluticasone nasal (fluticasone 50 mcg/ inh NASAL spray) 1 spray(s) each nostril Two (2) times a day Unchanged hydrochlorothiazide-lisinopril (hydrochlorothiazide-lisinopril 12.5 mg-20 mg oral tablet) See instructions take 2 tablets by mouth once daily Unchanged potassium chloride (potassium chloride 10 mEq oral tablet, extended release) See instructions take 1 tablet by mouth once daily Please take this list to your next doctor s visit. Bring all medications you take, including over the counter medications, herbals and other supplements with you to your doctor s visit. Patients and families are reminded to discard old lists and to update any records with all medication providers or retail pharmacies. Education Materials Plantar Fasciitis Plantar fasciitis is a painful swelling of the plantar fascia. The plantar fascia is a thick, fibrous layer of tissue that covers the bones on the bottom of your foot. It supports the foot bones in an arched position. Plantar fasciitis can happen gradually or suddenly. It usually affects one foot at a time. Heel pain can be sharp, like a knife sticking into the bottom of your foot. You may feel pain after exercising, long-distance jogging, stair climbing, long periods of standing, or after standing up. Risk factors include: non-active lifestyle, arthritis, diabetes, obesity or recent weight gain, flat foot, high arch. Wearing high heels, loose shoes, or shoes with poor arch support for long periods of time adds to the risk. This problem is commonly found in runners and dancers. It also found in people who stand on hard surfaces for long periods of time. Foot pain from this condition is usually worse in the morning. But it often improves with walking. By the end of the day there may be a dull aching. Treatment requires short-term rest and controlling swelling. It may take up to 9 months before all symptoms go away. Rarely, a steroid injection into the foot, or surgery, may be needed. Home care If you are overweight, lose weight to help healing. Choose supportive shoes with good arch support and shock absorbency. Replace athletic shoes when they become worn out. Don t walk or run barefoot. Premade or custom-fitted shoe inserts may be helpful. Inserts made of silicone seem to be the most effective. Custom-made inserts can be provided by child development specialist, physical therapist, or orthopedist. Premade or custom-made night splints keep the heel stretched out while you sleep. They may prevent morning pain. Limit activities that stress the feet: jogging, prolonged standing or walking, contact sports, etc. First thing in the morning and before sports, stretch the bottom of your feet. Gently flex your ankle so the toes move toward your knee. Icing may help control heel pain. Apply an ice pack to the heel for 10 to 20 minutes as a preventive. Or ice your heel after a severe flare-up of symptoms. You may repeat this every 1 to 2 hours as needed. You may use ggkx-mzx-qwrxzil pain medicine to control pain, unless another medicine was prescribed. Anti-inflammatory pain medicines, such as ibuprofen or naproxen, may work better than acetaminophen. If you have chronic liver or kidney disease or ever had a stomach ulcer or gastrointestinal bleeding, talk with your healthcare provider before using these medicines. Follow-up care Follow up with your healthcare provider, or as advised. Call for an appointment if pain worsens or there is no relief after a few weeks of home treatment. Shoe inserts, a night splint, or a special boot may be required. If X-rays were taken, you will be told of any new findings that may affect your care. When to seek medical advice Call your healthcare provider right away if any of these occur: Foot swelling Redness or warmth with increasing pain [phone] [employer]. [address] [place] [address]. All rights reserved. This information is not intended as a substitute for professional medical care. Always follow your healthcare professional's instructions. Additional Information VACCINATE! IT SAVES LIVES! Members of the community who have not yet received the COVID-19 vaccine and would like to receive it can visit one of [facility] vaccine clinics. There are many vaccine clinic locations within the [facility]. For locations and available times, please visit [email or web address] [email or web address] It is important to note that some COVID mobile vaccine clinics are held outdoors and may be canceled in rainy or stormy conditions. To learn more about pediatric vaccinations (ages 5-11), we invite you to visit the [facility] webpage. https://www.[facility].org/pag es/1243-Zmngm-Ejbxzjcsezn-Frequent pz-Rewcv-Hatovkmnv.html To learn more about the COVID-19 vaccine, we invite you to visit the CDC website for a list of frequently asked questions. https://www.cdc.gov/coronavirus/-ncov/vaccines/faq.html [facility] Patient Portal Access Instructions: Stay connected with your healthcare team and access your personal medical information anytime with the [facility] Patient Portal. If you would like a full copy of your medical records please contact the [facility] Medical Records Department Monday through Monday between 8a.m. and 4:30p.m. Please follow the directions below to access the portal: 1.Access the email account you provided upon registration to the [facility].2.Look for an invitation email from [facility].3.Open the email and access the invitation link: Accept Invitation to [facility].Fill in the required york to create your account. Sign into www.[email or web address] with your username and password that you created in the above steps to stay up to date. You can then view a summary of results, a summary of your visits, and the ability to download your summaries to your computer or send the information securely to a physician. Remember that your healthcare information is confidential, so carefully consider who you will allow to register on the [facility] Patient Portal for access to your information. You can also access the [facility] Patient Portal on the [employer]. Simply click on Health Records under Health Data and then click on the [facility] logo. HOW TO SAFELY DISPOSE OF PRESCRIPTION MEDICATIONS Please use one of the following methods to safely dispose of your unused medications. 1.Use a drug disposal kit: the drug disposal pouch allows you to safely discard your old and unused drugs. Ask your nurse to give you one when you are discharged.2.Visit a local take-back location: Many local pharmacies and police departments have programs that collect old and unwanted prescription drugs. Call your local pharmacy or go to http://Hard Candy Cases.Converged Access/2E6Fk2w to find one close to you.3.Make use of household items: Use cat litter or old coffee grounds to dispose medications if other options are not available. Mix your drugs with these household products, seal them in an airtight container and throw it into the garbage. Call [facility]: [phone] to be sure your drugs can be disposed of in this way. Some medicines may require a different approach.4.Never flush your medications down the toilet. IF YOU HAVE BEEN PRESCRIBED AN OPIOIDS FOR PAIN If you have been prescribed an opioid (such as hydrocodone, oxycodone or morphine), it is critical to understand the possible side effects and risks of opioid pain medications. Even when taken as directed, opioids can have several side effects including: Tolerance, meaning you might need to take more of a medication for the same pain relief. Nausea, vomiting and/or constipation. Sleepiness, dizziness, dry mouth, confusion, depression or itching. Physical dependence, meaning you have withdrawal symptoms when a medication is stopped ? this can develop within a few days. KNOW YOUR RESPONSIBILITIES It is important to know exactly how much and how often to take the opioid pain medications you are prescribed. Never take opioids in higher amounts or more often than prescribed. Do not combine opioids with alcohol or other drugs that cause drowsiness, such as benzodiazepines, also known as benzos, including diazepam and alprazolam, muscle relaxants or sleep aids. Never sell or share prescription opioids. This is illegal. Store opioids in a secure place and out of reach of others (including children, family, friends and visitors). The last page(s) of this document has been signed and retained as a CHART COPY Signatures Patient Education Materials Plantar Fasciitis Medication Leaflets My discharge plan and instructions have been reviewed and explained to me and IREINALDO LEE E understand my current condition and have read and understand these discharge instructions. I have received a written copy of the plan/instructions. If I have questions, I am aware that I should contact my doctor. Patient/Atm Manager Signature: Date/Time: Relationship to Patient: ___ Witness Name/Signature: Date/Time: [facility] 11-30-2022 Note ORIGINAL EXAMINATION: THREE XRAY VIEWS OF THE RIGHT FOOT 11/30/2022 4:41 am COMPARISON: None. HISTORY: ORDERING SYSTEM PROVIDED HISTORY: Reason for Exam: Right heel pain FINDINGS: No acute fracture or dislocation is identified. There are mild degenerative changes of the 1st metatarsophalangeal joint and dorsal foot. There is prominent plantar enthesopathy and ossification of the plantar fascia adjacent to the origin on the calcaneus. Tiny Achilles enthesophyte. No radiopaque foreign body. Mild generalized subcutaneous edema of the lower extremity and foot. IMPRESSION: No acute osseous abnormality. Prominent plantar enthesophyte and plantar fascia ossification can be seen with plantar fasciitis. I have personally reviewed the images of this examination, and agree with the resident's findings and interpretation. Interpreted by: Parish Brown MD Preliminary Report By: Juan Cantor Electronically signed By Parish Brown MD Dictated Date: 11/30/2022 4:48:01 AM Prelim Date: 11/30/2022 4:55:10 AM Sign Date: 11/30/2022 4:57:49 AM Ordering Provider: [facility] 11-30-2022 Note ORIGINAL EXAMINATION: THREE XRAY VIEWS OF THE RIGHT FOOT 11/30/2022 4:41 am COMPARISON: None. HISTORY: ORDERING SYSTEM PROVIDED HISTORY: Reason for Exam: Right heel pain FINDINGS: No acute fracture or dislocation is identified. There are mild degenerative changes of the 1st metatarsophalangeal joint and dorsal foot. There is prominent plantar enthesopathy and ossification of the plantar fascia adjacent to the origin on the calcaneus. Tiny Achilles enthesophyte. No radiopaque foreign body. Mild generalized subcutaneous edema of the lower extremity and foot. IMPRESSION: No acute osseous abnormality. Prominent plantar enthesophyte and plantar fascia ossification can be seen with plantar fasciitis. I have personally reviewed the images of this examination, and agree with the resident's findings and interpretation. Interpreted by: Parish Brown MD Preliminary Report By: Juan Cantor Electronically signed By Parish Brown MD Dictated Date: 11/30/2022 4:48:01 AM Prelim Date: 11/30/2022 4:55:10 AM Sign Date: 11/30/2022 4:57:49 AM Ordering Provider: [facility] 06-20-2022 Hospital Discharge instructions Patient Education 06/20/2022 15:52:58 Sinusitis (No Antibiotics) Sinusitis (No Antibiotics) The sinuses are air-filled spaces within the bones of the face. They connect to the inside of the nose. Sinusitis is an inflammation of the tissue that lines the sinuses. Sinusitis can occur during a cold. It can also happen due to allergies to pollens and other particles in the air. It can cause symptoms such as sinus congestion, headache, sore throat, facial swelling, and a feeling of fullness. It may also cause a low-grade fever. Your sinusitis does not include an infection with bacteria. Because of this, antibiotics are not used to treat this problem. Home care Drink plenty of water, hot tea, and other liquids. This may help thin nasal mucus. It also may help your sinuses drain fluids. Heat may help soothe painful areas of your face. Use a towel soaked in hot water. Or, rn imaging the shower and direct the warm spray onto your face. Using a vaporizer along with a menthol rub at night may also help soothe symptoms. An expectorant with guaifenesin may help thin nasal mucus and help your sinuses drain fluids. You can use an rnkb-azr-ezulzet decongestant, unless a similar medicine was prescribed to you. Nasal sprays work the fastest. Use one that contains phenylephrine or oxymetazoline. First blow your nose gently. Then use the spray. Do not use these medicines more often than directed on the label. If you do, your symptoms may get worse. You may also take pills that contain pseudoephedrine. Don t use products that combine multiple medicines. This is because side effects may be increased. Read all medicine labels. You can also ask the pharmacist for help. (People with high blood pressure should not use decongestants. They can raise blood pressure.) Thaz-yhu-apqwlhc antihistamines may help if allergies contributed to your sinusitis. Use acetaminophen or ibuprofen to control pain, unless another pain medicine was prescribed to you. If you have chronic liver or kidney disease or ever had a stomach ulcer, talk with your healthcare provider before using these medicines. (Aspirin should never be taken by anyone under age 18 who is ill with a fever. It may cause severe liver damage.) Use nasal rinses or irrigation as instructed by your healthcare provider. Don't smoke. This can make symptoms worse. Follow-up care Follow up with your healthcare provider or our staff if you are not better in 1 week. When to seek medical advice Call your healthcare provider if any of these occur: Green or yellow fluid draining from your nose or into your throat Facial pain or headache that gets worse Stiff neck Unusual drowsiness or confusion Swelling of your forehead or eyelids Vision problems, such as blurred or double vision Fever of 100.4 F (38 C) or higher, or as directed by your healthcare provider Seizure Breathing problems Symptoms that don't go away in 10 days 8084-1688 [employer]. [address] [place] [address]. All rights reserved. This information is not intended as a substitute for professional medical care. Always follow your healthcare professional's instructions. 06/20/2022 15:52:56 Self-Care for Sinusitis Self-Care for Sinusitis Drinking plenty of water can help sinuses drain. Sinusitis can often be managed with self-care. Self-care can keep sinuses moist and make you feel more comfortable. Remember to follow your doctor's instructions closely. This can make a big difference in getting your sinus problem under control. Drink fluids Drinking extra fluids helps thin your mucus. This lets it drain from your sinuses more easily. Have a glass of water every hour or two. A humidifier helps in much the same way. Fluids can also offset the drying effects of certain medicines. If you use a humidifier, follow the product maker's instructions on how to use it. Clean it on a regular schedule. Use saltwater rinses Rinses help keep your sinuses and nose moist. Mix a teaspoon of salt in 8 ounces of fresh, warm water. Use a bulb syringe to gently squirt the water into your nose a few times a day. You can also buy ready-made saline nasal sprays. Apply hot or cold packs Applying heat to the area surrounding your sinuses may make you feel more comfortable. Use a hot water bottle or a hand towel dipped in hot water. Some people also find ice packs effective for relieving pain. Medicines Your doctor may prescribe medications to help treat your sinusitis. If you have an infection, antibiotics can help clear it up. If you are prescribed antibiotics, take all pills on schedule until they are gone, even if you feel better. Decongestants help relieve swelling. Use decongestant sprays for short periods only under the direction of your doctor. If you have allergies, your doctor may prescribe medications to help relieve them. [id number] [employer]. [address] [place] [address], [place] [address]. All rights reserved. This information is not intended as a substitute for professional medical care. Always follow your healthcare professional's instructions. Follow Up Care 06/20/2022 14:28:21 With:KAITLYN WEAVER Address: [address] [place] [address] [place] [address] [phone] When:2-4 days [facility] 06-20-2022 Note Discharge Instructions Thank you for allowing [facility] to assist you with your healthcare needs. The following is important discharge information regarding your hospital visit. Diagnosis from Today's Visit Sinus congestion Generalized aches and pains What to Do Next Instructions from Your Care Team No qualifying data available. Post Acute Orders No qualifying data available. You Need to Schedule the Following Appointments Follow Up with KAITLYN WEAVER When Within 2-4 days Where: [address] [place] [address] [phone] [facility] (non-codified) Medications Please ask your primary doctor or pharmacist before taking any other medication not listed, including over the counter drugs, herbal medications, vitamins and or supplements as they may interact with your home medications. What How Much When Why Instructions Last Dose New acetaminophen/ dextromethorphan/ PE (Mucinex Sinus-Max 325 mg-10 mg-5 mg oral capsule) 2 cap by mouth Every 4 hours Sinus congestion Duration: 5 Days do not take tylenol while on this medication Printed Prescription New oxymetazoline nasal (Afrin 0.05% nasal Mist) 2 spray(s) in the nose Two (2) times a day Sinus congestion Duration: 3 Days Printed Prescription Unchanged amLODIPine (amLODIPine 5 mg oral tablet) See instructions take 1 tablet by mouth once daily Unchanged fluticasone nasal (fluticasone 50 mcg/ inh NASAL spray) 1 spray(s) each nostril Two (2) times a day Unchanged hydrochlorothiazide-lisinopril (hydrochlorothiazide-lisinopril 12.5 mg-20 mg oral tablet) See instructions take 2 tablets by mouth once daily Unchanged potassium chloride (potassium chloride 10 mEq oral tablet, extended release) See instructions take 1 tablet by mouth once daily Please take this list to your next doctor s visit. Bring all medications you take, including over the counter medications, herbals and other supplements with you to your doctor s visit. Patients and families are reminded to discard old lists and to update any records with all medication providers or retail pharmacies. Medication Leaflets acetaminophen, dextromethorphan, and phenylephrine (a SEET a MIN of fen, DEX troe me THOR fan, and FEN il EFF rin) Comtrex Cold & Cough, DayQuil Cold & Flu, Daytime, Flu & Severe Cold & Cough Daytime Powder, Mapap Cold Formula, Robitussin Peak Cold Daytime Cold + Flu, Sudafed PE Pressure+Pain+Cough, Theraflu Daytime Severe Cold & Cough, Theraflu Warming Severe Cold Daytime, Tylenol Cold Multi-Symptom Daytime What is the most important information I should know about this medicine? Do not use this medicine if you have taken an MAO inhibitor in the past 14 days. A dangerous drug interaction could occur. MAO inhibitors include isocarboxazid, linezolid, phenelzine, rasagiline, selegiline, and tranylcypromine. Do not take more of this medication than is recommended. An overdose of acetaminophen can damage your liver or cause . Call your doctor at once if you have nausea, pain in your upper stomach, itching, loss of appetite, dark urine, doris-colored stools, or jaundice (yellowing of your skin or eyes). In rare cases, acetaminophen may cause a severe skin reaction. Stop taking this medicine and call your doctor right away if you have skin redness or a rash that spreads and causes blistering and peeling. What is acetaminophen, dextromethorphan, and phenylephrine? Acetaminophen is a pain reliever and fever ear muff assembler. Dextromethorphan is a cough suppressant. It affects the signals in the brain that trigger cough reflex. Phenylephrine is a decongestant that shrinks blood vessels in the nasal passages. Dilated blood vessels can cause nasal congestion (stuffy nose). Acetaminophen, dextromethorphan, and phenylephrine is a combination medicine used to treat headache, fever, body aches, cough, stuffy nose, and sinus congestion caused by allergies, the common cold, or the flu. This medicine will not treat a cough that is caused by smoking, asthma, or emphysema. Acetaminophen, dextromethorphan, and phenylephrine may also be used for purposes not listed in this medication guide. What should I discuss with my healthcare provider before taking this medicine? Do not use this medicine if you have taken an MAO inhibitor in the past 14 days. A dangerous drug interaction could occur. MAO inhibitors include isocarboxazid, linezolid, phenelzine, rasagiline, selegiline, and tranylcypromine. You should not use this medication if you are allergic to acetaminophen, dextromethorphan, or phenylephrine. Ask a doctor or pharmacist if it is safe for you to take this medicine if you have other medical conditions, especially: liver disease, alcoholism, or if you drink more than 3 alcoholic beverages per day; high blood pressure, heart disease, coronary artery disease; asthma or COPD, cough with mucus, or cough caused by smoking, emphysema, or chronic bronchitis; diabetes; glaucoma; overactive thyroid; epilepsy or other seizure disorder; pheochromocytoma (an adrenal gland tumor); or bladder obstruction or other urination problems. It is not known whether acetaminophen, dextromethorphan, and phenylephrine will harm an unborn baby. Do not use this medicine without a doctor's advice if you are . Acetaminophen, dextromethorphan, and phenylephrine may pass into breast milk and may harm a nursing baby. Decongestants may also slow breast milk production. Do not use this medicine without a doctor's advice if you are breast-feeding a baby. Artificially sweetened cold medicine may contain phenylalanine. If you have phenylketonuria (PKU), check the medication label to see if the product contains phenylalanine. How should I take this medicine? Use exactly as directed on the label, or as prescribed by your doctor. Do not use in larger or smaller amounts or for longer than recommended. This medicine is usually taken only for a short time until your symptoms clear up. Do not take more of this medication than recommended. An acetaminophen overdose can damage your liver or cause . Do not give this medication to a child younger than 4 years old. Always ask a doctor before giving cough or cold medicine to a child. can occur from the misuse of cough or cold medicine in very young children. Measure liquid medicine with a special dose measuring spoon or medicine cup, not with a regular table spoon. If you do not have a dose measuring device, ask your pharmacist for one. Dissolve one packet of the powder in at least 4 ounces of water. Stir this mixture and drink all of it right away. Do not take for longer than 7 days in a row. Stop taking the medicine and call your doctor if you still have a fever after 3 days of use, you still have pain after 7 days (or 5 days if treating a child), if your symptoms get worse, or if you have a skin rash, ongoing headache, or any redness or swelling. If you need surgery or medical tests, tell the surgeon or doctor ahead of time if you have taken this medicine within the past few days. Store at room temperature away from moisture and heat. Do not allow liquid medicine to freeze. What happens if I miss a dose? Since this medicine is taken when needed, you may not be on a dosing schedule. If you are taking the medication regularly, take the missed dose as soon as you remember. Skip the missed dose if it is almost time for your next scheduled dose. Do not take extra medicine to make up the missed dose. What happens if I overdose? Seek emergency medical attention or call the Poison Help line at . An overdose of acetaminophen can be fatal. The first signs of an acetaminophen overdose include loss of appetite, nausea, vomiting, stomach pain, sweating, and confusion or weakness. Later symptoms may include pain in your upper stomach, dark urine, and yellowing of your skin or the whites of your eyes. Overdose symptoms may also include severe forms of some of the side effects listed in this medication guide. What should I avoid while taking this medicine? Ask a doctor or pharmacist before using any other cold, allergy, pain, or sleep medication. Acetaminophen (sometimes abbreviated as APAP) is contained in many combination medicines. Taking certain products together can cause you to get too much acetaminophen which can lead to a fatal overdose. Check the label to see if a medicine contains acetaminophen or APAP. This medication may impair your thinking or reactions. Be careful if you drive or do anything that requires you to be alert. Avoid drinking alcohol. It may increase your risk of liver damage while you are taking acetaminophen. What are the possible side effects of this medicine? Get emergency medical help if you have any of these signs of an allergic reaction: hives; difficulty breathing; swelling of your face, lips, tongue, or throat. In rare cases, acetaminophen may cause a severe skin reaction that can be fatal. This could occur even if you have taken acetaminophen in the past and had no reaction. Stop taking this medicine and call your doctor right away if you have skin redness or a rash that spreads and causes blistering and peeling. If you have this type of reaction, you should never again take any medicine that contains acetaminophen. Stop using acetaminophen, dextromethorphan, and phenylephrine and call your doctor at once if you have: chest pain, fast, slow, or uneven heart rate; severe dizziness, feeling like you might pass out; mood changes, confusion, hallucinations, seizure (convulsions); little or no urinating; nausea, upper stomach pain, itching, loss of appetite, dark urine, doris-colored stools, jaundice (yellowing of the skin or eyes); or dangerously high blood pressure (severe headache, blurred vision, buzzing in your ears, anxiety, chest pain, uneven heartbeats, seizure). Common side effects may include: dizziness, weakness, mild headache; diarrhea, upset stomach; dry mouth, nose, or throat; feeling nervous, restless, irritable, or anxious; or sleep problems (insomnia). This is not a complete list of side effects and others may occur. Call your doctor for medical advice about side effects. You may report side effects to FDA at 2-628-HGB-7745. What other drugs will affect this medicine? Other drugs may interact with acetaminophen, dextromethorphan, and phenylephrine, including prescription and daqb-kww-ernxmbd medicines, vitamins, and herbal products. Tell each of your health care providers about all medicines you use now and any medicine you start or stop using. Where can I get more information? Your pharmacist can provide more information about acetaminophen, dextromethorphan, and phenylephrine. Remember, keep this and all other medicines out of the reach of children, never share your medicines with others, and use this medication only for the indication prescribed. Every effort has been made to ensure that the information provided by [employer]. ('[employer]') is accurate, up-to-date, and complete, but no guarantee is made to that effect. Drug information contained herein may be time sensitive. [employer] information has been compiled for use by healthcare practitioners and consumers in the [place] and therefore [employer] does not warrant that uses outside of the [place] are appropriate, unless specifically indicated otherwise. [employer] drug information does not endorse drugs, diagnose patients or recommend therapy. [employer] drug information is an informational resource designed to assist licensed healthcare practitioners in caring for their patients and/or to serve consumers viewing this service as a supplement to, and not a substitute for, the expertise, skill, knowledge and judgment of healthcare practitioners. The absence of a warning for a given drug or drug combination in no way should be construed to indicate that the drug or drug combination is safe, effective or appropriate for any given patient. [employer] does not assume any responsibility for any aspect of healthcare administered with the aid of information [employer] provides. The information contained herein is not intended to cover all possible uses, directions, precautions, warnings, drug interactions, allergic reactions, or adverse effects. If you have questions about the drugs you are taking, check with your doctor, nurse or pharmacist. Copyright 0326-7190 [employer]. Version: 1.04. Revision Date: 04/24/2014. oxymetazoline nasal (ox ee me KIRTI oh mynor NAY rolan) 12 Hour Nasal, Afrin, Afrin No Drip Sinus, Allerest 12 Hour Nasal Urich, Dristan 12-Hour, Duramist Plus, Duration, Mucinex Full Force, Mucinex Moisture Smart, Nasal Mist, Felipe-Synephrine 12 Hour, Nostrilla, NRS Nasal, Sinarest Nasal, Sinex Long-Acting, Sudafed OM Sinus Cold, Zicam Extreme Congestion Relief, Zicam Sinus Relief What is the most important information I should know about oxymetazoline nasal? Oxymetazoline nasal (for the nose) is used for temporary relief of nasal congestion caused by allergies or the common cold. Stop using this medicine and call your doctor at once if you have ongoing or worsening symptoms, or if you have severe burning or stinging in your nose after using the nasal spray What is oxymetazoline nasal? Oxymetazoline is a decongestant that shrinks blood vessels in the nasal passages. Dilated blood vessels can cause nasal congestion (stuffy nose). Oxymetazoline nasal (for the nose) is for temporary relief of nasal congestion (stuffy nose) caused by allergies or the common cold. Oxymetazoline nasal may also be used for purposes not listed in this medication guide. What should I discuss with my healthcare provider before using oxymetazoline nasal? You should not use oxymetazoline nasal if you are allergic to it. Ask a doctor or pharmacist if it is safe for you to take this medicine if you have other medical conditions, especially: heart disease, high blood pressure, coronary artery disease; diabetes; a thyroid disorder; or enlarged prostate or urination problems. FDA category C. It is not known whether oxymetazoline nasal will harm an unborn baby. Tell your doctor if you are or plan to become while using this medication. It is not known whether oxymetazoline nasal passes into breast milk or if it could harm a nursing baby. Tell your doctor if you are breast-feeding a baby. How should I use oxymetazoline nasal? Use exactly as directed on the label, or as prescribed by your doctor. Do not use in larger or smaller amounts or for longer than recommended. Using the medication too long or too often may worsen your symptoms or cause nasal congestion to clear up and come back. Call your doctor if your symptoms do not improve after 3 days of treatment. Do not share this medication with another person, even if they have the same symptoms you have. Sharing a nasal spray bottle can spread infection. To use the nose drops (nasal solution): Blow your nose gently. Tilt your head back as far as possible, or lie down and hang your head over the side of a bed. Hold the dropper over your nose and place the correct number of drops into your nose. Sit up and bend your head slightly forward, then move it gently left and right. Stay seated with your head bent forward for a few minutes. Avoid sneezing or blowing your nose for at least a few minutes after using the nose drops. To use the nasal spray: Blow your nose gently. Keep your head upright and insert the tip of bottle into one nostril. Press your other nostril closed with your finger. Breathe in quickly and gently spray the medicine into your nose. Then use the spray in your other nostril. Do not blow your nose for at least a few minutes after using the nasal spray. Do not use the nasal spray more than 2 times in 24 hours. Wipe the tip of the spray bottle with a clean tissue but do not wash with water or soap. Store at room temperature away from moisture and heat. Do not freeze. Keep the bottle tightly closed when not in use. What happens if I miss a dose? Use the missed dose as soon as you remember. Skip the missed dose if it is almost time for your next scheduled dose. Do not use extra medicine to make up the missed dose. What happens if I overdose? Seek emergency medical attention or call the Poison Help line at if anyone has accidentally swallowed the medication. Keep this medicine out of the reach of children. Certain nasal medications can cause serious medical problems in a young child who accidentally sucks on or swallows medicine from the nasal spray bottle. What should I avoid while using oxymetazoline nasal? Follow your doctor's instructions about any restrictions on food, beverages, or activity. What are the possible side effects of oxymetazoline nasal? Get emergency medical help if you have any of these signs of an allergic reaction: hives; difficult breathing; swelling of your face, lips, tongue, or throat. Stop using oxymetazoline nasal and call your doctor at once if you have: ongoing or worsening symptoms; severe burning or stinging in your nose after using the nasal spray; chest pain, fast or uneven heart rate; or severe headache, buzzing in your ears, anxiety, confusion, or feeling short of breath. Common side effects may include: mild burning or stinging of the nose; sneezing; or runny nose. This is not a complete list of side effects and others may occur. Call your doctor for medical advice about side effects. You may report side effects to FDA at 0-715-QGJ-5128. What other drugs will affect oxymetazoline nasal? Ask a doctor or pharmacist if it is safe for you to use oxymetazoline nasal if you are also using any of the following drugs: an antidepressant--amitriptyline, clomipramine, desipramine, doxepin, imipramine, nortriptyline; ergot medicine--ergotamine, dihydroergotamine, ergonovine, methylergonovine; or an MAO inhibitor--isocarboxazid, linezolid, phenelzine, rasagiline, selegiline, tranylcypromine. This list is not complete and other drugs may interact with oxymetazoline nasal. Tell your doctor about all medications you use. This includes prescription, joym-njk-ejzztco, vitamin, and herbal products. Do not start a new medication without telling your doctor. Where can I get more information? Your pharmacist can provide more information about oxymetazoline nasal. Remember, keep this and all other medicines out of the reach of children, never share your medicines with others, and use this medication only for the indication prescribed. Every effort has been made to ensure that the information provided by [employer]. ('[employer]') is accurate, up-to-date, and complete, but no guarantee is made to that effect. Drug information contained herein may be time sensitive. [employer] information has been compiled for use by healthcare practitioners and consumers in the [place] and therefore [employer] does not warrant that uses outside of the [place] are appropriate, unless specifically indicated otherwise. [employer] drug information does not endorse drugs, diagnose patients or recommend therapy. [employer] drug information is an informational resource designed to assist licensed healthcare practitioners in caring for their patients and/or to serve consumers viewing this service as a supplement to, and not a substitute for, the expertise, skill, knowledge and judgment of healthcare practitioners. The absence of a warning for a given drug or drug combination in no way should be construed to indicate that the drug or drug combination is safe, effective or appropriate for any given patient. [employer] does not assume any responsibility for any aspect of healthcare administered with the aid of information [employer] provides. The information contained herein is not intended to cover all possible uses, directions, precautions, warnings, drug interactions, allergic reactions, or adverse effects. If you have questions about the drugs you are taking, check with your doctor, nurse or pharmacist. Copyright 6147-1518 [employer]. Version: 4.03. Revision Date: 11/15/2012. Education Materials Sinusitis (No Antibiotics) The sinuses are air-filled spaces within the bones of the face. They connect to the inside of the nose. Sinusitis is an inflammation of the tissue that lines the sinuses. Sinusitis can occur during a cold. It can also happen due to allergies to pollens and other particles in the air. It can cause symptoms such as sinus congestion, headache, sore throat, facial swelling, and a feeling of fullness. It may also cause a low-grade fever. Your sinusitis does not include an infection with bacteria. Because of this, antibiotics are not used to treat this problem. Home care Drink plenty of water, hot tea, and other liquids. This may help thin nasal mucus. It also may help your sinuses drain fluids. Heat may help soothe painful areas of your face. Use a towel soaked in hot water. Or, rn imaging the shower and direct the warm spray onto your face. Using a vaporizer along with a menthol rub at night may also help soothe symptoms. An expectorant with guaifenesin may help thin nasal mucus and help your sinuses drain fluids. You can use an yxvi-qml-dvpqxmn decongestant, unless a similar medicine was prescribed to you. Nasal sprays work the fastest. Use one that contains phenylephrine or oxymetazoline. First blow your nose gently. Then use the spray. Do not use these medicines more often than directed on the label. If you do, your symptoms may get worse. You may also take pills that contain pseudoephedrine. Don t use products that combine multiple medicines. This is because side effects may be increased. Read all medicine labels. You can also ask the pharmacist for help. (People with high blood pressure should not use decongestants. They can raise blood pressure.) Npog-ads-uazdqma antihistamines may help if allergies contributed to your sinusitis. Use acetaminophen or ibuprofen to control pain, unless another pain medicine was prescribed to you. If you have chronic liver or kidney disease or ever had a stomach ulcer, talk with your healthcare provider before using these medicines. (Aspirin should never be taken by anyone under age 18 who is ill with a fever. It may cause severe liver damage.) Use nasal rinses or irrigation as instructed by your healthcare provider. Don't smoke. This can make symptoms worse. Follow-up care Follow up with your healthcare provider or our staff if you are not better in 1 week. When to seek medical advice Call your healthcare provider if any of these occur: Green or yellow fluid draining from your nose or into your throat Facial pain or headache that gets worse Stiff neck Unusual drowsiness or confusion Swelling of your forehead or eyelids Vision problems, such as blurred or double vision Fever of 100.4 F (38 C) or higher, or as directed by your healthcare provider Seizure Breathing problems Symptoms that don't go away in 10 days 0345-0322 [employer]. [address] [place], [place] [id number]. All rights reserved. This information is not intended as a substitute for professional medical care. Always follow your healthcare professional's instructions. Self-Care for Sinusitis Drinking plenty of water can help sinuses drain. Sinusitis can often be managed with self-care. Self-care can keep sinuses moist and make you feel more comfortable. Remember to follow your doctor's instructions closely. This can make a big difference in getting your sinus problem under control. Drink fluids Drinking extra fluids helps thin your mucus. This lets it drain from your sinuses more easily. Have a glass of water every hour or two. A humidifier helps in much the same way. Fluids can also offset the drying effects of certain medicines. If you use a humidifier, follow the product maker's instructions on how to use it. Clean it on a regular schedule. Use saltwater rinses Rinses help keep your sinuses and nose moist. Mix a teaspoon of salt in 8 ounces of fresh, warm water. Use a bulb syringe to gently squirt the water into your nose a few times a day. You can also buy ready-made saline nasal sprays. Apply hot or cold packs Applying heat to the area surrounding your sinuses may make you feel more comfortable. Use a hot water bottle or a hand towel dipped in hot water. Some people also find ice packs effective for relieving pain. Medicines Your doctor may prescribe medications to help treat your sinusitis. If you have an infection, antibiotics can help clear it up. If you are prescribed antibiotics, take all pills on schedule until they are gone, even if you feel better. Decongestants help relieve swelling. Use decongestant sprays for short periods only under the direction of your doctor. If you have allergies, your doctor may prescribe medications to help relieve them. 4490-2837 [employer]. [address] [place] [address]. All rights reserved. This information is not intended as a substitute for professional medical care. Always follow your healthcare professional's instructions. Additional Information VACCINATE! IT SAVES LIVES! Members of the community who have not yet received the COVID-19 vaccine and would like to receive it can visit one of [facility] vaccine clinics. There are many vaccine clinic locations within the [facility]. For locations and available times, please visit www.[email or web address] g. It is important to note that some COVID mobile vaccine clinics are held outdoors and may be canceled in rainy or stormy conditions. To learn more about pediatric vaccinations (ages 5-11), we invite you to visit the [facility] webpage. https://www.[email or web address].org/pag es/7544-Rhbni-Gnssllyapjf-Frequent sp-Rmwbd-Nobgaocij.html To learn more about the COVID-19 vaccine, we invite you to visit the [facility] website for a list of frequently asked questions. [email or web address] Education/assets/Patient g-oul-Kqcytegl/vpdxw-Xfwbxma-Nrgcp ently_Asked-Questions.pdf [facility] Patient Portal Access Instructions: Stay connected with your healthcare team and access your personal medical information anytime with the [facility] Patient Portal. If you would like a full copy of your medical records please contact the [facility] Medical Records Department Monday through Monday between 8a.m. and 4:30p.m. Please follow the directions below to access the portal: 1.Access the email account you provided upon registration to the hospital.2.Look for an invitation email from [facility].3.Open the email and access the invitation link: Accept Invitation to [facility]4.Fill in the required york to create your account. Sign into www.[employer] with your username and password that you created in the above steps to stay up to date. You can then view a summary of results, a summary of your visits, and the ability to download your summaries to your computer or send the information securely to a physician. Remember that your healthcare information is confidential, so carefully consider who you will allow to register on the [facility] Patient Portal for access to your information. You can also access the [facility] Patient Portal on the [employer] wendy. Simply click on Health Records under Health Data and then click on the [facility] logo. HOW TO SAFELY DISPOSE OF PRESCRIPTION MEDICATIONS Please use one of the following methods to safely dispose of your unused medications. 1.Use a drug disposal kit: the drug disposal pouch allows you to safely discard your old and unused drugs. Ask your nurse to give you one when you are discharged.2.Visit a local take-back location: Many local pharmacies and police departments have programs that collect old and unwanted prescription drugs. Call your local pharmacy or go to http://Hard Candy Cases.Converged Access/7H4Lu9h to find one close to you.3.Make use of household items: Use cat litter or old coffee grounds to dispose medications if other options are not available. Mix your drugs with these household products, seal them in an airtight container and throw it into the garbage. Call [facility]: [phone] to be sure your drugs can be disposed of in this way. Some medicines may require a different approach.4.Never flush your medications down the toilet. IF YOU HAVE BEEN PRESCRIBED AN OPIOIDS FOR PAIN If you have been prescribed an opioid (such as hydrocodone, oxycodone or morphine), it is critical to understand the possible side effects and risks of opioid pain medications. Even when taken as directed, opioids can have several side effects including: Tolerance, meaning you might need to take more of a medication for the same pain relief. Nausea, vomiting and/or constipation. Sleepiness, dizziness, dry mouth, confusion, depression or itching. Physical dependence, meaning you have withdrawal symptoms when a medication is stopped ? this can develop within a few days. KNOW YOUR RESPONSIBILITIES It is important to know exactly how much and how often to take the opioid pain medications you are prescribed. Never take opioids in higher amounts or more often than prescribed. Do not combine opioids with alcohol or other drugs that cause drowsiness, such as benzodiazepines, also known as benzos, including diazepam and alprazolam, muscle relaxants or sleep aids. Never sell or share prescription opioids. This is illegal. Store opioids in a secure place and out of reach of others (including children, family, friends and visitors). The last page(s) of this document has been signed and retained as a CHART COPY Signatures Patient Education Materials Sinusitis (No Antibiotics) Self-Care for Sinusitis Medication Leaflets acetaminophen, dextromethorphan, and phenylephrine, oxymetazoline nasal My discharge plan and instructions have been reviewed and explained to me and IREINALDO LEE E understand my current condition and have read and understand these discharge instructions. I have received a written copy of the plan/instructions. If I have questions, I am aware that I should contact my doctor. Patient/Atm Manager Signature: Date/Time: Relationship to Patient: ___ Witness Name/Signature: Date/Time: [facility] 06-20-2022 SARS-CoV-2 (COVID-19) RNA LUIS ANTONIO+probe Ql (Nph) Negative *NA* (06/20/22 4:22 PM) AO Auto Urine SS 01-26-2022 Hospital Discharge instructions Patient Education 01/26/2022 18:46:56 Foreign Body, Soft Tissue (Removed) Foreign Object Under the Skin (Removed) An object has been removed from under your skin. Although care was taken to remove all of it, there is always a chance that a small piece may have been left behind. Most skin wounds heal without problems. But there can be an increased risk of infection if anything stays under the skin. Sometimes the pieces work their way out on their own, and sometimes they can cause an infection. Very small pieces that stay under the skin usually don t cause a problem or need further treatment. Home care Wound care Keep the wound clean and dry. If there is a dressing or bandage, change it when it gets wet or dirty. Otherwise, leave it on for the first 24 hours, then change it once a day or as often as you were instructed. If stitches or mary were used, clean the wound every day: oAfter taking off the dressing, wash the area gently with soap and water. oApply a thin layer of antibiotic ointment to the cut. This will keep the wound clean and make it easier to remove the stitches. If it is oozing a lot, you can put a nonstick dressing over it. Then reapply the bandage or dressing as you were instructed. oYou can get it wet, just like when you clean it. This means you can shower as usual for the first 24 hours, but don't soak the area in water (no baths or swimming) until the stitches or mary are taken out. If surgical tape or strips were used, keep the area clean and dry. If it becomes wet, blot it dry with a towel. Medicine You can take cfpd-vhl-bpabafs medicine for pain, unless you were given a different pain medicine to use. If you have chronic liver or kidney disease or ever had a stomach ulcer, or gastrointestinal bleeding or are taking blood thinner medicines, talk with your healthcare provider before using these medicines. If you were given antibiotics, take them until they are used up. It's important to finish the antibiotics even if the wound looks better to make sure the infection clears. Follow-up care Follow up your healthcare provider, or as advised. Keep in mind the following: Watch for any signs of infection, such as increasing pain, redness, swelling, or pus drainage. If this happens, don t wait for your scheduled visit, rather see your healthcare provider sooner. Stitches or mary are usually taken out within 5 to 14 days. This varies depending on what part of your body they are on, and the type of wound. The healthcare provider will tell you how long they should be left in. If surgical tape or strips were used, they are usually left on for 7 to 10 days. You can remove them after that unless you were told otherwise. If you try to remove them, and it is too difficult, soaking can help. If the edges of the cut pull apart, then stop removing the tape, and follow up with your healthcare provider. If X-rays were taken, you will be told if there are new findings that may affect your care. When to seek medical care Call your healthcare provider right away if any of these occur: Fever of 100.4 F (38 C) or higher, or as directed by your healthcare provider Increasing pain in the wound Redness, swelling or pus coming from the wound [phone] [employer]. [address] [place] [address], [place] [address]. All rights reserved. This information is not intended as a substitute for professional medical care. Always follow your healthcare professional's instructions. 01/26/2022 18:46:44 Puncture Wound (Foot) Puncture Wound: Foot A puncture wound occurs when a pointed object (such as a nail) pushes into the skin. It may go into the tissues below the skin of the foot, including fat and muscle. This type of wound is narrow and deep. They can be hard to clean. Puncture wounds are at high risk for becoming infected. One type of serious infection is more likely if you were wearing a rubber-soled shoe at the time of injury. Bacteria from the sole of the shoe may be dragged into the wound. Symptoms of infection may appear as late as 2 to 3 weeks after the injury. Be sure to watch for symptoms of infection and call your healthcare provider right away if any them appear. X-rays may be done to see whether any objects remain under the skin. Your may also need a tetanus shot. This is given if you are not up-to-date on this vaccination and the object that caused the wound may lead to tetanus. Puncture wounds can easily become infected. Home care When you sit or lie down, raise the foot above the level of your heart. This helps reduce swelling and pain. Don't put weight on the injured foot if it hurts to do so or if you were told to keep weight off the injury. Your healthcare provider may prescribe an antibiotic. This is to help prevent infection. Follow all instructions for taking this medicine. Take the medicine every day until it is gone or you are told to stop. You should not have any left over. The healthcare provider may prescribe medicines for pain. Follow instructions for taking them. You can take acetaminophen or ibuprofen for pain, unless you were given a different pain medicine to use. Follow the healthcare provider s instructions on how to care for the wound. Keep the wound clean and dry. Don't get the wound wet until you are told it is OK to do so. If the area gets wet, gently pat it dry with a clean cloth. Replace the wet bandage with a dry one. If a bandage was applied and it becomes wet or dirty, replace it. Otherwise, leave it in place for the first 24 hours. Once you can get the wound wet, you may shower as usual but don't soak the wound in water (no tub baths or swimming) Check the wound daily for symptoms of infection. These include: oIncreasing redness or swelling around the wound oIncreased warmth of the wound oWorsening pain oRed streaking lines away from the wound oDraining pus Follow-up care Follow up with your healthcare provider, or as advised. When to seek medical advice Call your healthcare provider right away if any of these occur: Any symptoms of infection (listed above) Fever of 100.4 F (38. C) or higher, or as directed by your healthcare provider Wound changes colors Numbness around the wound Decreased movement around the injured area [phone] [employer]. [address] [place] [address]. All rights reserved. This information is not intended as a substitute for professional medical care. Always follow your healthcare professional's instructions. Follow Up Care 01/26/2022 17:30:04 With:KAITLYN WEAVER Address: [address] [facility] [address] [facility] [place] [address]- [phone] When:3-7 days Comments:Schedule appointment for wound check.Daily wound care with dressing changes and antibiotic ointment.Use antibiotic (Keflex) as prescribed.Use Tylenol, Advil or Aleve for pain as needed.Watch for signs of infection.Return to the ED if symptoms worsen. [facility] 01-26-2022 Note Discharge Instructions Thank you for allowing [facility] to assist you with your healthcare needs. The following is important discharge information regarding your hospital visit. Diagnosis from Today's Visit Puncture wound of right foot Foreign body in foot Foreign body removal-foot What to Do Next Instructions from Your Care Team No qualifying data available. Post Acute Orders No qualifying data available. You Need to Schedule the Following Appointments Follow Up with KAITLYN WEAVER When Within 3-7 days Why: Schedule appointment for wound check. Daily wound care with dressing changes and antibiotic ointment. Use antibiotic (Keflex) as prescribed. Use Tylenol, Advil or Aleve for pain as needed. Watch for signs of infection. Return to the ED if symptoms worsen. [facility] [facility] [address] [facility] [place] [address]- [phone] Allergies Misc medication for hypertension (non-codified) Medications Please ask your primary doctor or pharmacist before taking any other medication not listed, including over the counter drugs, herbal medications, vitamins and or supplements as they may interact with your home medications. What How Much When Why Instructions Last Dose New cephalexin (Keflex use cephalexin ) 500 Milligram by mouth Four (4) times a day Puncture wound of right foot Foreign body in foot Duration: 7 Days Printed Prescription Unchanged amLODIPine (amLODIPine 5 mg oral tablet) See instructions take 1 tablet by mouth once daily Unchanged fluticasone nasal (fluticasone 50 mcg/ inh NASAL spray) 1 spray(s) each nostril Two (2) times a day Unchanged hydrochlorothiazide-lisinopril (hydrochlorothiazide-lisinopril 12.5 mg-20 mg oral tablet) See instructions take 2 tablets by mouth once daily Unchanged potassium chloride (potassium chloride 10 mEq oral tablet, extended release) See instructions take 1 tablet by mouth once daily Please take this list to your next doctor s visit. Bring all medications you take, including over the counter medications, herbals and other supplements with you to your doctor s visit. Patients and families are reminded to discard old lists and to update any records with all medication providers or retail pharmacies. Education Materials Foreign Object Under the Skin (Removed) An object has been removed from under your skin. Although care was taken to remove all of it, there is always a chance that a small piece may have been left behind. Most skin wounds heal without problems. But there can be an increased risk of infection if anything stays under the skin. Sometimes the pieces work their way out on their own, and sometimes they can cause an infection. Very small pieces that stay under the skin usually don t cause a problem or need further treatment. Home care Wound care Keep the wound clean and dry. If there is a dressing or bandage, change it when it gets wet or dirty. Otherwise, leave it on for the first 24 hours, then change it once a day or as often as you were instructed. If stitches or mary were used, clean the wound every day: oAfter taking off the dressing, wash the area gently with soap and water. oApply a thin layer of antibiotic ointment to the cut. This will keep the wound clean and make it easier to remove the stitches. If it is oozing a lot, you can put a nonstick dressing over it. Then reapply the bandage or dressing as you were instructed. oYou can get it wet, just like when you clean it. This means you can shower as usual for the first 24 hours, but don't soak the area in water (no baths or swimming) until the stitches or mary are taken out. If surgical tape or strips were used, keep the area clean and dry. If it becomes wet, blot it dry with a towel. Medicine You can take qqit-cwv-wbksnfp medicine for pain, unless you were given a different pain medicine to use. If you have chronic liver or kidney disease or ever had a stomach ulcer, or gastrointestinal bleeding or are taking blood thinner medicines, talk with your healthcare provider before using these medicines. If you were given antibiotics, take them until they are used up. It's important to finish the antibiotics even if the wound looks better to make sure the infection clears. Follow-up care Follow up your healthcare provider, or as advised. Keep in mind the following: Watch for any signs of infection, such as increasing pain, redness, swelling, or pus drainage. If this happens, don t wait for your scheduled visit, rather see your healthcare provider sooner. Stitches or mary are usually taken out within 5 to 14 days. This varies depending on what part of your body they are on, and the type of wound. The healthcare provider will tell you how long they should be left in. If surgical tape or strips were used, they are usually left on for 7 to 10 days. You can remove them after that unless you were told otherwise. If you try to remove them, and it is too difficult, soaking can help. If the edges of the cut pull apart, then stop removing the tape, and follow up with your healthcare provider. If X-rays were taken, you will be told if there are new findings that may affect your care. When to seek medical care Call your healthcare provider right away if any of these occur: Fever of 100.4 F (38 C) or higher, or as directed by your healthcare provider Increasing pain in the wound Redness, swelling or pus coming from the wound [id number] [employer]. [address] [place] [address]. All rights reserved. This information is not intended as a substitute for professional medical care. Always follow your healthcare professional's instructions. Puncture Wound: Foot A puncture wound occurs when a pointed object (such as a nail) pushes into the skin. It may go into the tissues below the skin of the foot, including fat and muscle. This type of wound is narrow and deep. They can be hard to clean. Puncture wounds are at high risk for becoming infected. One type of serious infection is more likely if you were wearing a rubber-soled shoe at the time of injury. Bacteria from the sole of the shoe may be dragged into the wound. Symptoms of infection may appear as late as 2 to 3 weeks after the injury. Be sure to watch for symptoms of infection and call your healthcare provider right away if any them appear. X-rays may be done to see whether any objects remain under the skin. Your may also need a tetanus shot. This is given if you are not up-to-date on this vaccination and the object that caused the wound may lead to tetanus. Puncture wounds can easily become infected. Home care When you sit or lie down, raise the foot above the level of your heart. This helps reduce swelling and pain. Don't put weight on the injured foot if it hurts to do so or if you were told to keep weight off the injury. Your healthcare provider may prescribe an antibiotic. This is to help prevent infection. Follow all instructions for taking this medicine. Take the medicine every day until it is gone or you are told to stop. You should not have any left over. The healthcare provider may prescribe medicines for pain. Follow instructions for taking them. You can take acetaminophen or ibuprofen for pain, unless you were given a different pain medicine to use. Follow the healthcare provider s instructions on how to care for the wound. Keep the wound clean and dry. Don't get the wound wet until you are told it is OK to do so. If the area gets wet, gently pat it dry with a clean cloth. Replace the wet bandage with a dry one. If a bandage was applied and it becomes wet or dirty, replace it. Otherwise, leave it in place for the first 24 hours. Once you can get the wound wet, you may shower as usual but don't soak the wound in water (no tub baths or swimming) Check the wound daily for symptoms of infection. These include: oIncreasing redness or swelling around the wound oIncreased warmth of the wound oWorsening pain oRed streaking lines away from the wound oDraining pus Follow-up care Follow up with your healthcare provider, or as advised. When to seek medical advice Call your healthcare provider right away if any of these occur: Any symptoms of infection (listed above) Fever of 100.4 F (38. C) or higher, or as directed by your healthcare provider Wound changes colors Numbness around the wound Decreased movement around the injured area [id number] [employer]. [address] [place] [address]. All rights reserved. This information is not intended as a substitute for professional medical care. Always follow your healthcare professional's instructions. Additional Information VACCINATE! IT SAVES LIVES! Members of the community who have not yet received the COVID-19 vaccine and would like to receive it can visit one of [facility] vaccine clinics. There are many vaccine clinic locations within the [facility]. For locations and available times, please visit [email or web address] g. It is important to note that some COVID mobile vaccine clinics are held outdoors and may be canceled in rainy or stormy conditions. To learn more about pediatric vaccinations (ages 5-11), we invite you to visit the [facility] webpage. [email or web address]/pag [email or web address]-Xtomp-Aoizasblxth-Frequent pg-Tsmpw-Cqkdcjoss.html To learn more about the COVID-19 vaccine, we invite you to visit the [facility] website for a list of frequently asked questions. [email or web address]-[email or web address] ently_[email or web address] [facility] Patient [facility] Access Instructions: Stay connected with your healthcare team and access your personal medical information anytime with the [facility] Patient Portal. If you would like a full copy of your medical records please contact the [facility] Medical Records Department Monday through Monday between 8a.m. and 4:30p.m. Please follow the directions below to access the portal: 1.Access the email account you provided upon registration to the [facility].2.Look for an invitation email from [facility].3.Open the email and access the invitation link: Accept Invitation to [facility]4.Fill in the required york to create your account. Sign into [email or web address] with your username and password that you created in the above steps to stay up to date. You can then view a summary of results, a summary of your visits, and the ability to download your summaries to your computer or send the information securely to a physician. Remember that your healthcare information is confidential, so carefully consider who you will allow to register on the [facility] Patient Portal for access to your information. You can also access the [facility] Patient Portal on the [employer] wendy. Simply click on Health Records under Health Data and then click on the [employer] logo. HOW TO SAFELY DISPOSE OF PRESCRIPTION MEDICATIONS Please use one of the following methods to safely dispose of your unused medications. 1.Use a drug disposal kit: the drug disposal pouch allows you to safely discard your old and unused drugs. Ask your nurse to give you one when you are discharged.2.Visit a local take-back location: Many local pharmacies and police departments have programs that collect old and unwanted prescription drugs. Call your local pharmacy or go to http://Hard Candy Cases.Converged Access/1L1Ud9g to find one close to you.3.Make use of household items: Use cat litter or old coffee grounds to dispose medications if other options are not available. Mix your drugs with these household products, seal them in an airtight container and throw it into the garbage. Call [facility]: [phone] to be sure your drugs can be disposed of in this way. Some medicines may require a different approach.4.Never flush your medications down the toilet. IF YOU HAVE BEEN PRESCRIBED AN OPIOIDS FOR PAIN If you have been prescribed an opioid (such as hydrocodone, oxycodone or morphine), it is critical to understand the possible side effects and risks of opioid pain medications. Even when taken as directed, opioids can have several side effects including: Tolerance, meaning you might need to take more of a medication for the same pain relief. Nausea, vomiting and/or constipation. Sleepiness, dizziness, dry mouth, confusion, depression or itching. Physical dependence, meaning you have withdrawal symptoms when a medication is stopped ? this can develop within a few days. KNOW YOUR RESPONSIBILITIES It is important to know exactly how much and how often to take the opioid pain medications you are prescribed. Never take opioids in higher amounts or more often than prescribed. Do not combine opioids with alcohol or other drugs that cause drowsiness, such as benzodiazepines, also known as benzos, including diazepam and alprazolam, muscle relaxants or sleep aids. Never sell or share prescription opioids. This is illegal. Store opioids in a secure place and out of reach of others (including children, family, friends and visitors). The last page(s) of this document has been signed and retained as a CHART COPY Signatures Patient Education Materials Foreign Body, Soft Tissue (Removed) Puncture Wound (Foot) Medication Leaflets My discharge plan and instructions have been reviewed and explained to me and IREINALDO LEE E understand my current condition and have read and understand these discharge instructions. I have received a written copy of the plan/instructions. If I have questions, I am aware that I should contact my doctor. Patient/Atm Manager Signature: Date/Time: Relationship to Patient: ___ Witness Name/Signature: Date/Time: [facility] 01-26-2022 Note ORIGINAL EXAMINATION: THREE XRAY VIEWS OF THE RIGHT FOOT 01/26/2022 6:04 pm COMPARISON: None. HISTORY: ORDERING SYSTEM PROVIDED HISTORY: Reason for Exam: Puncture wound right forefoot, evaluate for possible foreign body FINDINGS: No acute fracture or dislocation. Mild degenerative changes of the tibiotalar joint and intertarsal joints involving the navicular bone. Moderate plantar calcaneal enthesopathy. A 0.3 cm radiopaque foreign body is present in the plantar subcutaneous tissues at the level of the 2nd metatarsal head. This is approximally 0.8 cm deep to the skin surface. An additional faintly opaque 0.3 cm density is present medial to the 5th proximal interphalangeal joint, which is not demonstrated on lateral view. IMPRESSION: A 0.3 cm radiopaque foreign body in the plantar subcutaneous tissues at the level of the 2nd metatarsal head. Additional faintly opaque 0.3 cm density medial to the 5th PIP. Correlate with site of injury. Degenerative changes as above. I have personally reviewed the images of this examination and agree with the resident's findings and interpretation. Interpreted by: Semaj Donnelly Preliminary Report By: Anders Lopez Electronically signed By Semaj Donnelly Dictated Date: 01/26/2022 6:10:43 PM Prelim Date: 01/26/2022 6:18:24 PM Sign Date: 01/26/2022 6:20:00 PM Ordering Provider: [facility] 01-26-2022 Note ORIGINAL EXAMINATION: THREE XRAY VIEWS OF THE RIGHT FOOT 01/26/2022 6:04 pm COMPARISON: None. HISTORY: ORDERING SYSTEM PROVIDED HISTORY: Reason for Exam: Puncture wound right forefoot, evaluate for possible foreign body FINDINGS: No acute fracture or dislocation. Mild degenerative changes of the tibiotalar joint and intertarsal joints involving the navicular bone. Moderate plantar calcaneal enthesopathy. A 0.3 cm radiopaque foreign body is present in the plantar subcutaneous tissues at the level of the 2nd metatarsal head. This is approximally 0.8 cm deep to the skin surface. An additional faintly opaque 0.3 cm density is present medial to the 5th proximal interphalangeal joint, which is not demonstrated on lateral view. IMPRESSION: A 0.3 cm radiopaque foreign body in the plantar subcutaneous tissues at the level of the 2nd metatarsal head. Additional faintly opaque 0.3 cm density medial to the 5th PIP. Correlate with site of injury. Degenerative changes as above. I have personally reviewed the images of this examination and agree with the resident's findings and interpretation. Interpreted by: Semaj Donnelly Preliminary Report By: Anders Lopez Electronically signed By Semaj Donnelly Dictated Date: 01/26/2022 6:10:43 PM Prelim Date: 01/26/2022 6:18:24 PM Sign Date: 01/26/2022 6:20:00 PM Ordering Provider: [facility] Evaluation + Plan note No data available for this section [facility] Summary note Negro, HIM Kerry L: PERFORM Event Display: Patient Summary Documents Authored Date: [id number] [facility] Summary Purpose Family History No Family History Records Found Advance Directives No Advanced Directives Records Found Additional Source Comments Care Team (unrecognized sect ion and content) Care Team Personnel Name: KAITLYN WEAVER APRN-REFRIGERATOR ASSEMBLER Position: P4 Advanced Practice Nurse Med Service: Active Provider Member Role: Primary Care Physician Address: Address: [address] [facility] [address] AM Morgan Kothari MD [address] Care Team Related Persons Name: RODERICK NAJERA Address: [place] [address] [place], [place] [id number] Care Team Personnel Name: KAITLYN WEAVER APRN-MARGARET Position: P4 Advanced Practice Nurse Member Role: Primary Care Physician Address: Address: [address] [facility] 440 AM Morgan Kothari MD [address] Name: MARLO Gilbert Position: AO RN Member Role: ED RN Name: TORREY KAMARA MD Position: ED Physician Member Role: Attending Physician Address: Address: [facility] [address] Care Team Related Persons Name: RODERICK NAJERA Address: Home [address] [place] [phone] Patient Care team informatio n (unrecognized section and content) Care Team Personnel Name: PHYSICIAN, PATIENT UNSURE Member Role: Primary Care Physician Name: Romain Isabel RN Position: AO RN Member Role: ED RN Name: MD LAMBERT STOVALL MD Position: ED Physician Member Role: ED Physician Address: Address: [facility] [address] Care Team Related Persons Name: RODERICK NAJERA Address: Home [address] [place], [place] [id number] (unrecognized sect ion and content) No Status Records Found INFORMATION SOURCE (unrecogn ized section and content) FOR RECORDS PERTAINING TO PATIENTS WHO ARE OR HAVE BEEN ENROLLED IN A CHEMICAL DEPENDENCY/SUBSTANCEABUSE PROGRAM, SOME INFORMATION MAY BE OMITTED. This clinical summary was aggregated from multiple sources. Caution should be exercised in using it in the provision of clinical care. This summary normalizes information from multiple sources, and as a consequence, information in this document may materially change the coding, format and clinical context of patient data. In addition, data may be omitted in some cases. CLINICAL DECISIONS SHOULD BE BASED ON THE PRIMARY CLINICAL RECORDS. The [employer] [facility]. provides no warranty or guarantee of the accuracy or completeness of information in this document.
[2023-07-08 09:20] LABS: ALB/GLOB Ratio 0.8 RATIO (0.9-2.4); AST(SGOT) 12 U/L (15-37); Alanine Aminotransfer ALT/SGPT 27 U/L (16-61); Albumin, Serum 3.4 g/dL (3.2-5.0); Alkaline Phosphatase 68 U/L (45-117); Anion Gap 6 (5-15); BUN 13 mg/dL (7-18); BUN/Creat Ratio 12.1 RATIO (10-20); Chloride 103 mmol/L (98-107); Cholesterol 177 mg/dL (200); Creatinine, Serum 1.07 mg/dL (0.70-1.30); EST Glomerular Filtration Rate 77 mL/min (>60); Est Glom Filt Rate - Afr Amer 93 mL/min (>60); Glucose 108 mg/dL (74-106); High Density Lipoprotein 28 mg/dL; Potassium 3.8 mmol/L (3.5-5.1); Protein, Total 7.4 g/dL (6.4-8.2); Sodium Level 138 mmol/L (136-145); Triglycerides 123 mg/dL; Very Low Density Lipoprotein 25 mg/dL (5-40)
[2023-07-08 11:06] LABS: Hemoglobin A1c 5.4 % (3.8-5.6)
== END | disposition home or self-care (01) ==
LOC: LAB 07:23
PROVIDERS: PCP Family Medicine; Referring Provider Family Medicine; Visit Provider Family Medicine
DX: I10 Essential (primary) hypertension (principal); R73.02 Impaired glucose tolerance (oral)
CPT/HCPCS: 36415; 80053; 80061; 83036

== ENCOUNTER → 2023-07-19 | Outpatient (CLI) | payer BC, SELFPAY ==
--- OUTSIDE RECORDS SUMMARY | 2023-07-19 17:19 | XMS RPT_ITS | CCD ---
Author Name Unknown Address [address] [place] [address] Organization [facility] Care Team Providers Care Heel Padder Name Role Phone OWEN SHETTY, KAITLYN Mcdonald [...] Date of Onset Reaction(s) Facility (3 sources) [facility] medication for hypertension (non-codified) Drug allergy [facility] Medications Current Medications Medication Drug Class(es) Dates Sig (Normalized) Sig (Original) acetaminophen 325 mg / HYDROcodone bitartrate 5 mg oral tablet (1 source) Opioid Agonist Start: 11-30-2022 End: 12-03-2022 take 1 tablet by mouth every six hours as needed for pain [place] 325- 5 mg oral tablet Dose = [...] 90 tab(s), 1 Refill(s), [facility] [address] [facility], cm, 12/07/18 [...] 180 tab(s), 0 Refill(s), [facility]: [facility] 172, cm, 12/07/18 14:52:00 [...] daily, # 30 tab(s), 0 Refill(s), [facility] 172, cm, 12/07/18 14:52:00 EDT, Height, kg, [...] height 172.[address] LAMBERT STOVALL MD [facility] 11-30-2022 04:35-0400 Body temperature 98.6 [degF] DR LAMBERT STOVALL MD [facility] 11-30-2022 04:35-0400 Body weight 133.[address] LAMBERT STOVALL MD [facility] 11-30-2022 04:35-0400 Diastolic Blood Pressure Non-Invasive [address] LAMBERT STOVALL MD [facility] 11-30-2022 04:35-0400 Heart rate 83 /min DR LAMBERT STOVALL MD [facility] 11-30-2022 04:35-0400 Respiratory rate 18 /min DR LAMBERT STOVALL MD [facility] 11-30-2022 04:35-0400 Systolic Blood Pressure Non-Invasive [address] LAMBERT STOVALL MD [facility] 06-20-2022 15:12-0500 Body height 172.7 cm TORREY KAMARA MD [facility] 06-20-2022 15:12-0500 Body temperature 98.78 [degF] TORREY KAMARA MD [facility] 06-20-2022 15:12-0500 Body weight 136.4 kg TORREY KAMARA MD [facility] 06-20-2022 15:12-0500 Diastolic Blood Pressure Non-Invasive 86 1 TORREY KAMARA MD [facility] 06-20-2022 15:12-0500 Heart rate 90 /min TORREY KAMARA MD [facility] 06-20-2022 15:12-0500 Respiratory rate 20 /min TORREY KAMARA MD [facility] 06-20-2022 15:12-0500 Systolic Blood Pressure Non-Invasive 148 1 TORREY KAMARA MD [facility] 01-26-2022 19:17-0400 Diastolic blood pressure 88 mm[Hg] ROCIO ARANA MD [facility] 01-26-2022 19:17-0400 Heart rate 85 /min ROCIO ARANA MD [facility] 01-26-2022 19:17-0400 Respiratory rate 18 /min ROCIO ARANA MD [facility] 01-26-2022 19:17-0400 Systolic blood pressure 143 mm[Hg] ROCIO ARANA MD [facility] 01-26-2022 17:31-0400 Body temperature 98.42 [degF] ROCIO ARANA MD [facility] 01-26-2022 17:31-0400 Diastolic blood pressure 89 mm[Hg] ROCIO ARANA MD [facility] 01-26-2022 17:31-0400 Heart rate 89 /min ROCIO ARANA MD [facility] 01-26-2022 17:31-0400 Respiratory rate 20 /min ROCIO ARANA MD [facility] 08-03-2022 17:31-0400 Systolic blood pressure 146 mm[Hg] ROCIO ARANA MD [facility] Encounters Encounter Date Encounter Type Care Provider Facility Start: 11-30-2022 End: 11-30-2022 Emergency department patient visit DR LAMBERT STOVALL MD Facility:B Start: 11-30-2022 End: 11-30-2022 Emergency department patient visit DR LAMBERT STOVALL MD [facility] Start: 06-20-2022 End: 06-20-2022 Emergency department patient visit KAITLYN WEAVER APRN-PERFORMANCE INSTRUCTOR Facility:B Start: 06-20-2022 End: 06-20-2022 Emergency department patient visit TORREY KAMARA MD [facility] Start: 01-26-2022 End: 01-26-2022 Emergency department patient visit ROCIO ARANA MD Facility:[facility] Start: 01-26-2022 End: 01-26-2022 Emergency department patient visit ROCIO ARANA MD [facility] Procedures Date Procedure Procedure Detail Performing Clinician Tonsillectomy ROCIO ARANA MD Payers Date Payer Category Payer Unknown [id number] 1970 Unknown [id number] 1970 Unknown [id number] 1970 Unknown [id number] Social History Date Type Detail Facility Tobacco Tobacco Use: 1 c an of chew can last a day or day and a half. Type: Oral. [facility] Tobacco smoking status Never smo ked tobacco (finding) [facility] Sex Assigned At Male [facility] Functional Status Date Assessment Result Facility 11-30-2022 Functional Status Standard Safet y ID band on, Allergy Band on, Call device within reach, Bed in low position, Wheels locked, Upper/Half-Length side-rails up, personal items within reach [facility] 06-20-2022 Functional Status Up ad david [facility] 06-20-2022 Functional Status Standard Safet y ID band on, Call device within reach, Bed in low position, Wheels locked [facility] 01-26-2022 Functional Status Standard Safet y ID band on, Call device within reach, Bed in low position, Wheels locked, Upper/Half-Length side-rails up, Visitor at bedside, Safety level maintained [facility] Mental Status Date Assessment Result Facility 11-30-2022 Mental Status Orientation Oriented x 4 [facility] 06-20-2022 Mental Status Orientation Oriented x 4 [facility] 06-20-2022 Mental Status [facility] 01-26-2022 Mental Status Orientation Oriented x 4 [facility] Clinical Notes 01-26-2022 to 11-30-2022 Note Date [...] effective. Custom-made inserts can be provided by thoracic medicine specialist, physical therapist, or orthopedist. Premade or [...] 2 hours as needed. You may use kaqy-abw-ptanrgy pain medicine to control pain, unless another [...] swelling Redness or warmth with increasing pain [id number] [employer]. [address] [place] [address], [place] [address]. All rights reserved. This information is not intended as a substitute for professional medical care. Always follow your healthcare professional's instructions. Follow Up Care 11/30/2022 04:09:57 With:VIMAL HARTMANN Address: [address] [place] [address], [address] [facility] [place], [place] [address]- Business (1) When:2-4 days Comments:Return to ED if symptoms worsen [facility] 11-30-2022 Note Discharge Instructions Thank you for allowing [facility] to assist you with your healthcare needs. [...] Return to ED if symptoms worsen Where: [address] [place] [address], [address] [facility] [place], [place] [phone]- Business (1) Allergies [facility] medication for hypertension (non-codified) Medications Please ask your primary doctor or pharmacist before taking any other medication not listed, including over the counter drugs, herbal medications, vitamins and or supplements as they may interact with your home medications. What How Much When Why Instructions Last Dose New acetaminophen-hydrocodone ([place] 325- 5 mg oral tablet) 1 tab(s) [...] effective. Custom-made inserts can be provided by thoracic medicine specialist, physical therapist, or orthopedist. Premade or [...] 2 hours as needed. You may use sdre-smu-luhzxqf pain medicine to control pain, unless another [...] swelling Redness or warmth with increasing pain 2973-7668 [employer]. [address] [place] [address]. All rights reserved. This information is not intended as a substitute for professional medical care. Always follow your healthcare professional's instructions. Additional Information VACCINATE! IT SAVES LIVES! Members of the community who have not yet received the COVID-19 vaccine and would like to receive it can visit one of [facility] vaccine clinics. There are many vaccine clinic locations within the [facility]. For locations and available times, please visit [email or web address] v/. It is important to note that some COVID mobile vaccine clinics are held outdoors and may be canceled in rainy or stormy conditions. To learn more about pediatric vaccinations (ages 5-11), we invite you to visit the [facility] webpage. https://www.[facility].org/pag es/3868-Fkrnc-Huyqjuxcivg-Frequent ei-Qtbkt-Zxzrssyri.html To learn more about the COVID-19 vaccine, we invite you to visit the CDC website for a list of frequently asked questions. https://www.cdc.gov/coronavirus/-ncov/vaccines/faq.html [facility] Patient Portal Access Instructions: Stay connected with your healthcare team and access your personal medical information anytime with the [facility] Patient Portal. If you would like a full copy of your medical records please contact the [facility] Medical Records Department Monday through Monday between 8a.m. and 4:30p.m. Please follow the directions below to access the portal: 1.Access the email account you provided upon registration to the [facility].2.Look for an invitation email from [facility].3.Open the email and access the invitation link: Accept Invitation to [facility]4.Fill in the required york to create your account. Sign into [email or web address] with your username and password that you [...] you will allow to register on the [facility] Patient Portal for access to your information. You can also access the [facility] Patient Portal on the [employer]. Simply click on Health Records under Health [...] Call your local pharmacy or go to [email or web address] Tech.[email or web address] to find one close to you.3.Make use of household items: Use cat litter or old coffee grounds to dispose medications if other options are not available. Mix your drugs with these household products, seal them in an airtight container and throw it into the garbage. Call [facility]: [phone] to be sure your drugs can be [...] aware that I should contact my doctor. Patient/Associate Director Financial Aid Signature: Date/Time: Relationship to Patient: ___ Witness Name/Signature: Date/Time: [facility] 11-30-2022 Note ORIGINAL EXAMINATION: THREE XRAY VIEWS [...] Sign Date: 11/30/2022 4:57:49 AM Ordering Provider: [facility] 11-30-2022 Note ORIGINAL EXAMINATION: THREE XRAY [...] Sign Date: 11/30/2022 4:57:49 AM Ordering Provider: [facility] 06-20-2022 Hospital Discharge instructions Patient Education 06/20/2022 [...] a towel soaked in hot water. Or, wood carving lathe operator the shower and direct the warm spray onto your face. Using a vaporizer along with a menthol rub at night may also help soothe symptoms. An expectorant with guaifenesin may help thin nasal mucus and help your sinuses drain fluids. You can use an znma-yxn-yhzicvb decongestant, unless a similar medicine was prescribed [...] use decongestants. They can raise blood pressure.) Gexj-tyv-icqdabf antihistamines may help if allergies contributed to [...] that don't go away in 10 days 0073-5106 [employer]. [address] [place] [address]. All rights reserved. This information is not [...] may prescribe medications to help relieve them. 9469-4841 [employer]. [address] [place] [address], [place] [address]. All rights reserved. This information is not intended as a substitute for professional medical care. Always follow your healthcare professional's instructions. Follow Up Care 06/20/2022 14:28:21 With:KAITLYN WEAVER Address: [address] [place] [address] [place] [address] [phone] When:2-4 days [facility] 06-20-2022 Note Discharge Instructions Thank you for allowing [facility] to assist you with your healthcare needs. [...] WEAVER When Within 2-4 days Where: [address] [place] [address] [phone] [facility] ([facility]) Medications Please [...] Acetaminophen is a pain reliever and fever spin table operator. Dextromethorphan is a cough suppressant. It affects [...] may report side effects to FDA at 7-591-YJD-7113. What other drugs will affect this medicine? Other drugs may interact with acetaminophen, dextromethorphan, and phenylephrine, including prescription and scth-bvh-nvgnaqs medicines, vitamins, and herbal products. Tell each [...] to ensure that the information provided by [employer]. ('[employer]') is accurate, up-to-date, and complete, but no guarantee is made to that effect. Drug information contained herein may be time sensitive. [employer] information has been compiled for use by healthcare practitioners and consumers in the [place] and therefore [employer] does not warrant that uses outside of the [place] are appropriate, unless specifically indicated otherwise. [employer] drug information does not endorse drugs, diagnose patients or recommend therapy. [employer] drug information is an informational resource designed [...] effective or appropriate for any given patient. [employer] does not assume any responsibility for any aspect of healthcare administered with the aid of information [employer] provides. The information contained herein is not intended to cover all possible uses, directions, precautions, warnings, drug interactions, allergic reactions, or adverse effects. If you have questions about the drugs you are taking, check with your doctor, nurse or pharmacist. Copyright 6416-5705 [employer]. Version: 1.04. Revision Date: 04/24/2014. oxymetazoline nasal (ox ee me KIRTI oh mynor NAY rolan) 12 Hour Nasal, Afrin, Afrin No Drip Sinus, Allerest 12 Hour Nasal [place], Dristan 12-Hour, Duramist Plus, Duration, Mucinex Full [...] may report side effects to FDA at 4-421-JNF-0713. What other drugs will affect oxymetazoline nasal? [...] all medications you use. This includes prescription, mpkn-jfo-nnutfji, vitamin, and herbal products. Do not start [...] to ensure that the information provided by [employer]. ('[employer]') is accurate, up-to-date, and complete, but no guarantee is made to that effect. Drug information contained herein may be time sensitive. [employer] information has been compiled for use by healthcare practitioners and consumers in the [place] and therefore [employer] does not warrant that uses outside of the [place] are appropriate, unless specifically indicated otherwise. [employer] drug information does not endorse drugs, diagnose patients or recommend therapy. [employer] drug information is an informational resource designed [...] effective or appropriate for any given patient. [employer] does not assume any responsibility for any aspect of healthcare administered with the aid of information [employer] provides. The information contained herein is not intended to cover all possible uses, directions, precautions, warnings, drug interactions, allergic reactions, or adverse effects. If you have questions about the drugs you are taking, check with your doctor, nurse or pharmacist. Copyright 5217-6973 [employer]. Version: 4.03. Revision Date: 11/15/2012. Education Materials [...] a towel soaked in hot water. Or, wood carving lathe operator the shower and direct the warm spray onto your face. Using a vaporizer along with a menthol rub at night may also help soothe symptoms. An expectorant with guaifenesin may help thin nasal mucus and help your sinuses drain fluids. You can use an irbu-xtq-fmttkcw decongestant, unless a similar medicine was prescribed [...] use decongestants. They can raise blood pressure.) Hitd-nwt-vyglozc antihistamines may help if allergies contributed to [...] that don't go away in 10 days 1711-0398 [employer]. [address] [place], [place] [address]. All rights reserved. This information is not [...] may prescribe medications to help relieve them. 3632-7632 [employer]. [address] [place] [address]. All rights reserved. This information is not intended as a substitute for professional medical care. Always follow your healthcare professional's instructions. Additional Information VACCINATE! IT SAVES LIVES! Members of the community who have not yet received the COVID-19 vaccine and would like to receive it can visit one of [facility] vaccine clinics. There are many vaccine clinic locations within the [facility]. For locations and available times, please visit www.[facility] centerot.[facility]avirus.[place].or g. It is important to note that some COVID mobile vaccine clinics are held outdoors and may be canceled in rainy or stormy conditions. To learn more about pediatric vaccinations (ages 5-11), we invite you to visit the [facility] webpage. https://www.[facility] Therapeuticss.org/pag es/5430-Bdbhw-Trznrpuxstn-Frequent hi-Zrsch-Yojfsiewt.html To learn more about the COVID-19 vaccine, we invite you to visit the [facility] website for a list of frequently asked questions. https://ponce[employer]/assets/Patient v-kxq-Iaztccas/qmnsw-Jqusiug-Ycnnr ently_Asked-Questions.pdf [facility] Patient Portal Access Instructions: Stay connected with your healthcare team and access your personal medical information anytime with the [facility] Patient Portal. If you would like a full copy of your medical records please contact the [facility] Medical Records Department Monday through Monday between 8a.m. and 4:30p.m. Please follow the directions below to access the portal: 1.Access the email account you provided upon registration to the hospital.2.Look for an invitation email from [facility].3.Open the email and access the invitation link: Accept Invitation to [facility]4.Fill in the required york to create your account. Sign into [email or web address] with your username and password that you [...] you will allow to register on the [facility] Patient Portal for access to your information. You can also access the [facility] Patient Portal on the [employer] wendy. Simply click on Health Records under [...] Call your local pharmacy or go to http://MET Tech.[facility]/6V3Lc0b to find one close to you.3.Make use of household items: Use cat litter or old coffee grounds to dispose medications if other options are not available. Mix your drugs with these household products, seal them in an airtight container and throw it into the garbage. Call [facility]: [phone] to be sure your drugs can be [...] aware that I should contact my doctor. Patient/Associate Director Financial Aid Signature: Date/Time: Relationship to Patient: ___ Witness Name/Signature: Date/Time: [facility] 06-20-2022 SARS-CoV-2 (COVID-19) RNA LUIS ANTONIO+probe Ql [...] with a towel. Medicine You can take banp-oqr-eokzzir medicine for pain, unless you were given [...] swelling or pus coming from the wound 9079-6340 [employer]. [address] [place] [address], [place] [address]. All rights reserved. This information is not [...] wound Decreased movement around the injured area 0478-6491 [employer]. [address] [place] [address]. All rights reserved. This information is not intended as a substitute for professional medical care. Always follow your healthcare professional's instructions. Follow Up Care 01/26/2022 17:30:04 With:KAITLYN WEAVER Address: [address] [facility] [address] [facility] [place] [address]- [phone] When:3-7 days Comments:Schedule appointment for wound check.Daily wound care with dressing changes and antibiotic ointment.Use antibiotic (Keflex) as prescribed.Use Tylenol, Advil or Aleve for pain as needed.Watch for signs of infection.Return to the ED if symptoms worsen. [facility] 01-26-2022 Note Discharge Instructions Thank you for allowing [facility] to assist you with your healthcare needs. [...] the ED if symptoms worsen. Where: [facility] [facility] [address] [facility] [place] [address]- [phone] Allergies Misc medication for hypertension (non-codified) Medications [...] with a towel. Medicine You can take xscp-aoz-jgsmejp medicine for pain, unless you were given [...] swelling or pus coming from the wound 9151-5508 [employer]. [address] [place] [address]. All rights reserved. This information is not [...] wound Decreased movement around the injured area 3295-8119 [employer]. [address] [place] [address]. All rights reserved. This information is not intended as a substitute for professional medical care. Always follow your healthcare professional's instructions. Additional Information VACCINATE! IT SAVES LIVES! Members of the community who have not yet received the COVID-19 vaccine and would like to receive it can visit one of [facility] vaccine clinics. There are many vaccine clinic locations within the [facility]. For locations and available times, please visit [email or web address].or g. It is important to note that some COVID mobile vaccine clinics are held outdoors and may be canceled in rainy or stormy conditions. To learn more about pediatric vaccinations (ages 5-11), we invite you to visit the [facility] webpage. https://www.[facility].org/pag es/0953-Uattu-Qwdxknsmkcu-Frequent iu-Xonyn-Hieohgkws.html To learn more about the COVID-19 vaccine, we invite you to visit the [facility] website for a list of frequently asked questions. https://ponce.org/assets/Patient j-pik-Zcislmgd/ldkuu-Uajadrq-Lcwuw ently_Asked-Questions.pdf [facility] Patient Portal Access Instructions: Stay connected with your healthcare team and access your personal medical information anytime with the [facility] Patient Portal. If you would like a full copy of your medical records please contact the [facility] Medical Records Department Monday through Monday between 8a.m. and 4:30p.m. Please follow the directions below to access the portal: 1.Access the email account you provided upon registration to the [facility].2.Look for an invitation email from [facility].3.Open the email and access the invitation link: Accept Invitation to [facility]4.Fill in the required york to create your [...] you will allow to register on the [facility] Patient Portal for access to your information. You can also access the [facility] Patient Portal on the VII NETWORK wendy. Simply click on Health Records under Health Data and then click on the [employer] logo. HOW TO SAFELY DISPOSE OF PRESCRIPTION [...] Call your local pharmacy or go to http://MET Tech.[facility]/3R1Om1c to find one close to you.3.Make use of household items: Use cat litter or old coffee grounds to dispose medications if other options are not available. Mix your drugs with these household products, seal them in an airtight container and throw it into the garbage. Call [facility]: [phone] to be sure your drugs can be [...] aware that I should contact my doctor. Patient/Associate Director Financial Aid Signature: Date/Time: Relationship to Patient: ___ Witness Name/Signature: Date/Time: [facility] 01-26-2022 Note ORIGINAL EXAMINATION: THREE XRAY VIEWS [...] Sign Date: 01/26/2022 6:20:00 PM Ordering Provider: [facility] 01-26-2022 Note ORIGINAL EXAMINATION: THREE XRAY [...] Sign Date: 01/26/2022 6:20:00 PM Ordering Provider: [facility] Evaluation + Plan note No data available for this section [facility] Summary note Negro, HIM Kerry L: PERFORM Event Display: Patient Summary Documents Authored Date: [id number] [facility] Summary Purpose Family History No Family History Records Found Advance Directives No Advanced Directives Records Found Additional Source Comments Care Team (unrecognized sect ion and content) Care Team Personnel Name: KAITLYN WEAVER APRN-PERFORMANCE INSTRUCTOR Position: P4 Advanced Practice Nurse Med Service: Active Provider Member Role: Primary Care Physician Address: Address: [address] [facility] 440 AM Morgan Kothari MD [address] Care Team Related Persons Name: RODERICK NAJERA Address: [place] [address] [place], [place] [id number] Care Team Personnel Name: KAITLYN WEAVER APRN-MARGARET Position: P4 Advanced Practice Nurse Member Role: Primary Care Physician Address: Address: [address] [facility] 440 AM Morgan Kothari MD [address] Name: MARLO [place] Position: AO RN Member Role: ED RN Name: TORREY KAMARA MD Position: ED Physician Member Role: Attending Physician Address: Address: [facility] [address] Care Team Related Persons Name: RODERICK NAJERA Address: Home [address] [place] [phone] Patient Care team informatio n (unrecognized section and content) Care Team Personnel Name: PHYSICIAN, PATIENT UNSURE Member Role: Primary Care Physician Name: Romain Isabel RN Position: AO RN Member Role: ED RN Name: MD LAMBERT STOVALL MD Position: ED Physician Member Role: ED Physician Address: Address: [facility] [address] Care Team Related Persons Name: RODERICK NAJERA Address: Home [address] [place], [place] [id number] (unrecognized sect ion and content) No Status [...] BE BASED ON THE PRIMARY CLINICAL RECORDS. [facility]. provides no warranty or guarantee of the accuracy or completeness of information in this document.
[2023-07-19 18:06] LABS: PSA,Total - Annual Screen 1.68 ng/mL (0.00-4.00)
== END | disposition home or self-care (01) ==
LOC: MFPLAB 15:48
PROVIDERS: PCP Family Medicine; Visit Provider Family Medicine
DX: Z12.5 Encounter for screening for malignant neoplasm of prostate (principal)
CPT/HCPCS: 36415; 84153; G0103

== ENCOUNTER → 2024-01-13 | Outpatient (CLI) | payer BC, SELFPAY ==
[2024-01-13 07:06] LABS: Red Blood Cells-Urine 0 SEEN /hpf (0-5)
[2024-01-13 07:50] LABS: Absolute Lymphocyte Count 1.37 X10^3/uL (0.83-4.51); Absolute Neutrophil Count 3.3 X10^3/uL (2.0-7.7); Basophil# 0.03 X10^3/uL; Basophil% 0.6 % (0-1); Eosinophil# 0.07 X10^3/uL; Eosinophils% 1.3 % (0-5); Hematocrit 44.4 % (40-54); Hemoglobin 14.9 g/dL (13.0-16.5); Lymphocyte # 1.37 X10^3/ul (0.83-4.51); Lymphocyte % 25.2 % (19-41); Mean Corp Hgb Conc 33.6 g/dL (32-36); Mean Corpuscular Hgb 29.8 pg (27.0-32.0); Mean Corpuscular Volume 88.8 fL (80-94); Mean Platelet Vol. 10.4 fl (6.2-12.0); Monocyte# 0.67 X10^3/uL; Monocyte% 12.3 % (0-10); NRBC Flagged by Analyzer 0 % (0-5); Neutrophil # 3.26 X10^3/uL (2.7-7.7); Platelet Count 282 K/mm3 (150-450); RBC Distribution Width SD 45.1 fl (35.1-43.9); White Blood Count 5.4 K/mm3 (4.4-11.0)
[2024-01-13 08:03] LABS: Color, Urine Yellow (Yellow); Glucose, Dipstick Normal (Normal); Ketone-Dipstick Negative (Negative); Leukocyte Esterase-Dipstick Negative /ul (Negative); Nitrite-Dipstick Negative (Negative); Occult Blood-Urine Negative /ul (Negative); Protein-Dipstick Negative (Negative); Urine Bilirubin Dipstick Negative (Negative); Urine Clarity Clear (Clear); Urine Urobilinogen Normal (Normal)
[2024-01-13 08:20] LABS: ALB/GLOB Ratio 0.8 RATIO (0.9-2.4); AST(SGOT) 26 U/L (15-37); Alanine Aminotransfer ALT/SGPT 34 U/L (16-61); Albumin, Serum 3.4 g/dL (3.2-5.0); Alkaline Phosphatase 75 U/L (45-117); Anion Gap 8 (5-15); BUN 12 mg/dL (7-18); Calcium,Total 8.9 mg/dL (8.5-10.1); Chloride 103 mmol/L (98-107); Cholesterol 192 mg/dL (200); EST Glomerular Filtration Rate 83 mL/min (>60); Est Glom Filt Rate - Afr Amer 100 mL/min (>60); Glucose 121 mg/dL (74-106); High Density Lipoprotein 30 mg/dL; Potassium 3.8 mmol/L (3.5-5.1); Protein, Total 7.4 g/dL (6.4-8.2); Sodium Level 140 mmol/L (136-145); Thyroid Stim Hormone (TSH) 0.89 uIU/mL (0.358-3.74); Triglycerides 171 mg/dL; Very Low Density Lipoprotein 34 mg/dL (5-40)
[2024-01-13 08:44] LABS: Mucous, Urine 2+ /hpf (<or=2+); Squamous Epithelial Cells - UA 0-5 SEEN /hpf (0-5)
[2024-01-13 08:45] LABS: Bacteria 1+ /hpf (None Seen); White Blood Cells 0-5 SEEN /hpf (0-5)
[2024-01-13 09:00] LABS: Hemoglobin A1c 5.5 % (3.8-5.6)
== END | disposition home or self-care (01) ==
LOC: LAB 07:02
PROVIDERS: PCP Family Medicine; Referring Provider Family Medicine; Visit Provider Family Medicine
DX: R73.02 Impaired glucose tolerance (oral) (principal); I10 Essential (primary) hypertension
CPT/HCPCS: 80053; 80061; 81001; 83036; 84443; 85025

== ENCOUNTER → 2024-01-24 | Outpatient (CLI) | payer BC, SELFPAY ==
--- NOTE | 2024-01-24 17:41 | US_ITS ---
INDICATION: HTN EXAMINATION: Ultrasound US Kidney(s) complete (eg, kidneys and bladder) TECHNIQUE: Aiken scale and color doppler images were obtained of the kidneys. COMPARISON: No relevant prior comparison study available FINDINGS: RIGHT KIDNEY: 13.5 x 5.8 x 7.2 cm. There is no hydronephrosis. No shadowing calculus, focal lesion or perinephric collection is demonstrated. LEFT KIDNEY: 14.2 x 4.5 x 5.8 cm. There is no hydronephrosis. No shadowing calculus, focal lesion or perinephric collection is demonstrated. URINARY BLADDER: Normally distended without wall thickening. Prevoid bladder volume of 457 mL. Post void residual volume of 66 mL. US/Kidney and Bladder IMPRESSION: Negative renal ultrasound. Electronically Signed: Cristofer Cloud MD at 23:38 EDT ,
== END | disposition home or self-care (01) ==
PROVIDERS: PCP Family Medicine; Referring Provider Family Medicine; Visit Provider Family Medicine
DX: I10 Essential (primary) hypertension (principal)
CPT/HCPCS: 76770

== ENCOUNTER → 2024-02-09 | Outpatient (CLI) | payer BC, SELFPAY ==
--- NOTE | 2024-02-09 06:30 | RDU_ITS ---
Reason For Study: HTN Right Renal Artery Left Renal Artery Right renal artery ostium 74/22 Left renal artery ostium 58/19 RSV/EDV. PSV/EDV. Right renal artery proximal 109/29 Left renal artery proximal PSV/EDV PSV/EDV. 75/22 . Right renal artery mid 131/44 Left renal artery mid 120/38 PSV/EDV. PSV/EDV . Right renal artery distal 66/19 Left renal artery distal 101/39 PSV/EDV. PSV/EDV. Right RAR 1.38. Left RAR 1.26. Right Renal Parenchyma Left Renal Parenchyma Upper Pole Medula 32/13 PSV/EDV. Left upper pole medulla 24/9 Right upper pole medulla EDR 0.41 . PSV/EDV . Right upper pole medulla R.I. Left upper pole medulla EDR 0.38 . 0.60 . Left upper pole medulla R.I. 0.62 . Upper Mohsen Cortx 30/13 PSV/EDV. UP Cortex 44/16 PSV/EDV. Right upper pole cortex EDR 0.43 . Left upper pole cortex EDR 0.36 . Right upper pole cortex R.I. 0.57 . Left upper pole cortex R.I. 0.64 . Right lower Pole medulla 39/12 Left lower Pole medulla 27/10 PSV/EDV . PSV/EDV . Right lower pole medulla EDR 0.31 . Left lower pole medulla EDR 0.37 . Right lower pole medulla R.I. Left lower pole medulla R.I. 0.62 . 0.69 . Lower Pole Cortx 23/8 PSV/EDV. Lower Pole Cortex 25/12 PSV/EDV. Left lower pole cortex EDR 0.35 . Right lower pole cortex EDR 0.48 . Left lower pole cortex R.I. 0.64 . Right lower pole cortex R.I. 0.51 . Left Renal Hilar Right Renal Hilar LT Hilar avg 89/33 PSV/EDV . Right Hilar avg 56/17 PSV/EDV. Left hilar acceleration time 40 Right hilar acceleration time 50 m/sec. m/sec. Left Renal Dimensions Right Renal Dimensions Left kidney size 13.37 cm . Right kidney size 14.82 cm . Left cortical dimension 1.61 cm . Right cortical dimension 1.70 cm . Aorta Proximal abdominal aorta 1.92cm x 1.84 cm . Proximal abdominal aorta peak systolic velocity is 95 cm/sec . Distal abdominal aorta 1.76cm x 1.84 cm . Distal abdominal aorta peak systolic velocity is 106 cm/sec . VL/Renal Artery Duplex Ultrasound Interpretation Summary Renal artery velocities are bilaterally normal. Renal-aortic ratios are also bi laterally normal. Acceleration times are normal bilaterally. There is no evidence of hemodynamica lly significant renal artery stenosis on either side. Renovascular resistance appears to be bilateral ly normal . The right cortical dimension is increased. The left cortical dimension is increased. Kidn eys are slightly enlarged bilaterally. Ordering Physician: Mejia Swain Referring Physician: Mejia Swain Performed By: Tierra Linda, RDASCENCION, RVT
== END | disposition home or self-care (01) ==
PROVIDERS: PCP Family Medicine; Referring Provider Family Medicine; Visit Provider Family Medicine
DX: I10 Essential (primary) hypertension (principal)
CPT/HCPCS: 93975

== ENCOUNTER → 2024-07-24 | Outpatient (CLI) | payer BC, SELFPAY ==
[2024-07-24 16:02] LABS: Bacteria 0 SEEN /hpf (None Seen); Mucous, Urine 0 SEEN /hpf (<or=2+); Red Blood Cells-Urine 0 SEEN /hpf (0-5); Squamous Epithelial Cells - UA 0 SEEN /hpf (0-5); White Blood Cells 0 SEEN /hpf (0-5)
[2024-07-24 18:03] LABS: Absolute Lymphocyte Count 1.56 X10^3/uL (0.83-4.51); Absolute Neutrophil Count 4.7 X10^3/uL (2.0-7.7); Basophil# 0.07 X10^3/uL; Basophil% 0.9 % (0-1); Eosinophil# 0.27 X10^3/uL; Eosinophils% 3.6 % (0-5); Hemoglobin 16.1 g/dL (13.0-16.5); Lymphocyte # 1.56 X10^3/ul (0.83-4.51); Mean Corp Hgb Conc 33.5 g/dL (32-36); Mean Corpuscular Hgb 29.8 pg (27.0-32.0); Mean Corpuscular Volume 88.9 fL (80-94); Mean Platelet Vol. 10.4 fl (6.2-12.0); Monocyte# 0.77 X10^3/uL; Monocyte% 10.4 % (0-10); NRBC Flagged by Analyzer 0 % (0-5); Neutrophil # 4.72 X10^3/uL (2.7-7.7); Neutrophil % 63.6 % (47-70); Platelet Count 348 K/mm3 (150-450); RBC Distribution Width CV 13.8 % (11.6-14.6); RBC Distribution Width SD 44.3 fl (35.1-43.9); White Blood Count 7.4 K/mm3 (4.4-11.0)
[2024-07-24 18:48] LABS: Color, Urine Yellow (Yellow); Glucose, Dipstick Normal (Normal); Ketone-Dipstick Negative (Negative); Leukocyte Esterase-Dipstick Negative /ul (Negative); Nitrite-Dipstick Negative (Negative); Occult Blood-Urine Negative /ul (Negative); Protein-Dipstick Negative (Negative); Urine Bilirubin Dipstick Negative (Negative); Urine Clarity Clear (Clear); Urine Urobilinogen Normal (Normal)
[2024-07-24 18:51] LABS: ALB/GLOB Ratio 0.9 RATIO (0.9-2.4); AST(SGOT) 22 U/L (15-37); Alanine Aminotransfer ALT/SGPT 32 U/L (16-61); Albumin, Serum 3.9 g/dL (3.2-5.0); Alkaline Phosphatase 71 U/L (45-117); Anion Gap 7 (5-15); BUN 13 mg/dL (7-18); BUN/Creat Ratio 12.7 RATIO (10-20); Calcium,Total 9.2 mg/dL (8.5-10.1); Chloride 104 mmol/L (98-107); Cholesterol 211 mg/dL (200); Creatinine, Serum 1.02 mg/dL (0.70-1.30); EST Glomerular Filtration Rate 81 mL/min (>60); Est Glom Filt Rate - Afr Amer 98 mL/min (>60); Globulin 4.3 g/dL (2.2-4.2); Glucose 91 mg/dL (74-106); High Density Lipoprotein 32 mg/dL; Potassium 3.4 mmol/L (3.5-5.1); Protein, Total 8.2 g/dL (6.4-8.2); Sodium Level 138 mmol/L (136-145); Triglycerides 236 mg/dL; Very Low Density Lipoprotein 47 mg/dL (5-40)
[2024-07-24 19:35] LABS: Hemoglobin A1c 5.7 % (3.8-5.6)
== END | disposition home or self-care (01) ==
LOC: MFPLAB 16:00
PROVIDERS: PCP Family Medicine; Referring Provider Family Medicine; Visit Provider Family Medicine
DX: R73.02 Impaired glucose tolerance (oral) (principal); I10 Essential (primary) hypertension
CPT/HCPCS: 36415; 80053; 80061; 81001; 83036; 85025

== ENCOUNTER → 2024-11-04 | Outpatient (CLI) | payer BC, SELFPAY ==
[2024-11-04 06:38] LABS: Absolute Lymphocyte Count 1.75 X10^3/uL (0.83-4.51); Absolute Neutrophil Count 3.6 X10^3/uL (2.0-7.7); Basophil# 0.08 X10^3/uL; Basophil% 1.3 % (0-1); Eosinophil# 0.25 X10^3/uL; Eosinophils% 3.9 % (0-5); Hematocrit 45.6 % (40-54); Hemoglobin 15.6 g/dL (13.0-16.5); Lymphocyte # 1.75 X10^3/ul (0.83-4.51); Lymphocyte % 27.4 % (19-41); Mean Corp Hgb Conc 34.2 g/dL (32-36); Mean Corpuscular Hgb 30.8 pg (27.0-32.0); Mean Corpuscular Volume 89.9 fL (80-94); Mean Platelet Vol. 10.3 fl (6.2-12.0); Monocyte# 0.68 X10^3/uL; Monocyte% 10.7 % (0-10); NRBC Flagged by Analyzer 0 % (0-5); Neutrophil # 3.58 X10^3/uL (2.7-7.7); Neutrophil % 56.1 % (47-70); Platelet Count 300 K/mm3 (150-450); RBC Distribution Width CV 13.5 % (11.6-14.6); RBC Distribution Width SD 43.8 fl (35.1-43.9); Red Blood Count 5.07 M/mm3 (4.6-6.2); White Blood Count 6.4 K/mm3 (4.4-11.0)
[2024-11-04 07:00] LABS: Hemoglobin A1c 5.8 % (<=5.6)
[2024-11-04 07:08] LABS: ALB/GLOB Ratio 1.2 RATIO (0.9-2.4); AST(SGOT) 25 U/L (<=37); Alanine Aminotransfer ALT/SGPT 22 U/L (<=46); Albumin, Serum 3.9 g/dL (3.5-5.0); Alkaline Phosphatase 67 U/L (40-129); Anion Gap 11 (5-15); BUN 11 mg/dL (4-19); BUN/Creat Ratio 11.8 RATIO (10-20); Calcium,Total 8.8 mg/dL (7.6-11.0); Carbon Dioxide 24.5 mmol/L (21.0-32.0); Chloride 103 mmol/L (98-108); Cholesterol 187 mg/dL (<=200); Creatinine, Serum 0.96 mg/dL (0.70-1.20); EST Glomerular Filtration Rate 94 (>60); Globulin 3.1 g/dL (2.2-4.2); Glucose 109 mg/dL (70-99); High Density Lipoprotein 28 mg/dL; Low Density Lipoprotein Calc. 128 mg/dL; Potassium 3.7 mmol/L (3.3-5.1); Sodium Level 139 mmol/L (133-145); Total Bilirubin 0.41 mg/dL (0.00-1.30); Triglycerides 156 mg/dL; Very Low Density Lipoprotein 31 mg/dL (5-40); cholesterol:hdl ratio screen 6.75
== END | disposition home or self-care (01) ==
LOC: LAB 05:59
PROVIDERS: PCP Family Medicine; Referring Provider Family Medicine; Visit Provider Family Medicine
DX: R73.02 Impaired glucose tolerance (oral) (principal); Z12.5 Encounter for screening for malignant neoplasm of prostate; I10 Essential (primary) hypertension
CPT/HCPCS: 36415; 80053; 80061; 83036; 84153; 85025; G0103

== ENCOUNTER → 2025-04-26 | Outpatient (CLI) | payer BC, SELFPAY ==
[2025-04-26 06:59] LABS: Mucous, Urine 0 SEEN /hpf (<or=2+); Red Blood Cells-Urine 0 SEEN /hpf (0-5); Squamous Epithelial Cells - UA 0 SEEN /hpf (0-5)
--- OUTSIDE RECORDS SUMMARY | 2025-04-26 07:00 | XMS RPT_ITS | CCD ---
Author Organization [facility] Care Team Providers Care It Data Architect Name Role Phone KAITLYN HILARIO Primary Care Physicia n PHYSICIAN, PATIENT UNSURE Primary Care Physician Unavailable PHYSICIAN, PATIENT UNSURE Primary Care Maikel CHAIDEZ MD, DINO Attending Unavailable Brynn MALONE, Dr. Mejia Skinner Primary Care Provider Brynn MALONE, Dr. Mejia Skinner Attending Provider Dr. Mejia Swain MD Referring Provider [phone] Mejia Swain Primary Care Unavailable Mejia Swani Attending Unavailable Mejia Swain Referring Unavailable Mejia Swain Primary Care Unavailable Mejia Swain Attending Unavailable Mejia Swain Referring Unavailable Mejia Swain Primary Care Unavailable Mejia Swain Attending Unavailable Mejia Swain Referring Unavailable Mejia Swain Primary Care Unavailable Mejia Swain Attending Unavailable Mejia Swain Referring Unavailable Mejia Swain Primary Care Unavailable Mejia Swain Attending Unavailable Mejia Swain Referring Unavailable Allergies Allergy Classification Reported Allergen(s) Allergy Type Date of Onset Reaction(s) Facility (4 sources) [facility] medication for hypertension (non-codified) Drug allergy [facility] Medications Current Medications Medication Drug Class(es) Dates Sig (Normalized) Sig (Original) acetaminophen 325 mg / HYDROcodone bitartrate 5 mg oral tablet (1 source) Opioid Agonist Start: 11-30-2022 End: 12-03-2022 take 1 tablet by mouth every six hours as needed for pain [place] 325- 5 mg oral tablet Dose = 1 tab(s), Oral, q6h, PRN as needed for pain, X 3 day(s), # 12 tab(s), 0 Refill(s), Plantar fasciitis, 133.9 Start Date: 11/30/22 Stop Date: 12/03/22 Status: Ordered amLODIPine 5 mg oral tablet (4 sources) Dihydropyridine Calcium Channel Jaye Start: 04-28-2020 take 1 tablet by mouth once daily amLODIPine 5 mg oral tablet See Instructions, take 1 tablet by mouth once daily, # 90 tab(s), 1 Refill(s), Pharmacy: [facility] [facility], [address], cm, 12/07/18 14:52:00 EDT, Height, [...] propionate 0.05 mg/actuat metered dose nasal spray (4 sources) Corticosteroid Start: 11-23-2018 take 1 dose nasal route twice daily fluticasone 50 mcg/inh NASAL spray Dose = 1 spray(s), Nostril, each, BID, 0 Refill(s) Start Date: 11/23/18 Status: Ordered hydroCHLOROthiazide 12.5 mg / lisinopril 20 mg oral tablet (9 sources) Thiazide Diuretic, Angiotensin Converting Enzyme Inhibitor Start: 09-08-2015 take 1 tablet by mouth once daily Lisinopril/Hydr ochlorothiazide (Zestoretic 20/12.5 Tablet) 1 TABLET tablet Active 1 {tbl} PO DAILY September 08, 2015 12:00am Mucinex Sinus-Max 325 mg-10 mg-5 mg oral [...] Ordered potassium chloride 10 meq oral tablet (9 sources) Start: 12-09-2019 take 1 tablet by mouth once daily potassium chloride 10 mEq oral tablet, extended release See Instructions, take 1 tablet by mouth once daily, # 30 tab(s), 0 Refill(s), Pharmacy: [address], [address], cm, 12/07/18 14:52:00 EDT, Height, kg, 11/23/18 15:10:00 EDT, Dosing Weight Start Date: 12/09/19 Status: Ordered Start: 09-08-2015 End: 09-08-2015 take 1 tablet by mouth once daily Potassium Chloride 10 MEQ tablet Discontinued 10 meq PO DAILY September 08, 2015 12:00am September 08, 2015 3:05pm Problems Active Problems Problem Classification Problem Date Documented Da te Episodic/Chronic Diabetes mellitus without complication (1 source) Impaired glucose tolerance (oral); Translations: [Impaired glucose tolerance (oral)] Onset: 11-07-2024 Episodic Essential hypertension (10 sources) Hypertensive disorder; Translations: [Essential (primary) hypertension] Onset: 02-27-2024 09-07-2015 Chronic Nonspecific chest pain (5 sources) Chest pain; Translations: [Chest pain, unspecified] 09-08-2015 Episodic Open wounds of extremities (1 source) Open wound of foot; Translations: [Puncture wound without foreign body, right foot, initial encounter] Onset: 01-26-2022 Episodic Other connective tissue disease (1 source) Plantar fascial fibromatosis; Translations: [Plantar fascial fibromatosis] Onset: 11-30-2022 Episodic Other upper respiratory disease (4 sources) Seasonal allergy 11-23-2018 Chronic Other upper respiratory disease (1 source) Nasal congestion; Translations: [Nasal congestion] Onset: 06-20-2022 Episodic Residual codes; unclassified (4 sources) Obstructive sleep apnea syndrome 11-23-2018 Chronic Residual codes; unclassified (5 sources) Chews tobacco ; Translations: [Tobacco use] 09-08-2015 Episodic Spondylosis; intervertebral disc disorders; other back problems (4 sources) Backache 11-23-2018 Episodic Superficial injury; contusion (1 source) Superficial foreign body in foot; Translations: [Superficial foreign body, unspecified foot, initial encounter] Onset: 01-26-2022 Episodic Past or Other Problems Problem Classification Problem Date Documented Da te Episodic/Chronic Sprains and strains (2 sources) Unspecified sprain of left shoulder joint, initial encounter; Translations: [Unspecified sprain of left shoulder joint, initial encounter] Onset: 07-27-2023 Episodic Results Test Name Value Interpretation Reference Range Facility Absolute lymphocyte countOrd ered By: Mejia Swain on 11-04-2024 Lymphocytes Auto (Unsp spec) [#/Vol] 1.75 10*3/uL 0.83-4.51 [facility] Absolute neutrophil countOrd ered By: Mejia Swain on 11-04-2024 Neutrophils (Bld) [#/Vol] 3.6 10*3/uL 2.0-7.7 [facility] Anion gap in Serum or Plasma Ordered By: Mejia Swain on 11-04-2024 Anion gap [Moles/Vol] 11 mmol/L 5-15 [facility] Automated lymphocyte count a s percentage of total leukocytesOrdered By: Mejia Swain on 11-04-2024 Lymphocytes/100 WBC Auto (Unsp spec) 27.4 % 19-41 [facility] BUN/creatinine ratioOrdered By: Mejia Swain on 11-04-2024 Urea nitrogen/Creatinine [Mass ratio] 11.8 mg/mg 10-20 [facility] Basophil percentageOrdered B y: Mejia Swain on 11-04-2024 Basophils/100 WBC (Bld) 1.3 % High 0-1 [facility] Bilirubin, totalOrdered By: Mejia Swain on 11-04-2024 Bilirubin [Mass/Vol] 0.41 mg/dL 0.00-1.30 [facility] CBC W/Diff, Automatedon 05-06 27-2024 Absolute Lymph 1.75 X10 3/uL Normal 0.83-4.51 [facility] Comment on above: Order Comment: Order Date: 07/24/24 Order Info: 0184-1 - CBCD Performed By: #### L 500.4050, L501.9985, L501.9910, L500.4100, L100.0100 #### [facility] [address] [place], [address] Absolute Neut 3.6 X10 3/uL Normal 2.0-7.7 [facility] Comment on above: Order Comment: Order Date: 07/24/24 Order Info: 0184- - CBCD Performed By: #### L 500.4050, L501.9985, L501.9910, L500.4100, L100.0100 #### [facility] [address] [place], [address] Basophils/100 WBC (Bld) 1.3 % High 0-1 [facility] Comment on above: Order Comment: Order Date: 07/24/24 Order Info: 0184- - CBCD Performed By: #### L 500.4050, L501.9985, L501.9910, L500.4100, L100.0100 #### [facility] [address] [place], [address] Eosinophils/100 WBC (Bld) 3.9 % Normal 0-5 [facility] Comment on above: Order Comment: Order Date: 07/24/24 Order Info: 0184- - CBCD Performed By: #### L 500.4050, L501.9985, L501.9910, L500.4100, L100.0100 #### [facility] [address] [place], [address] Erythrocyte distribution width (RBC) [Ratio] 13.5 % Normal 11.6-14.6 [facility] Comment on above: Order Comment: Order Date: 07/24/24 Order Info: 0184-1 - CBCD Performed By: #### L 500.4050, L501.9985, L501.9910, L500.4100, L100.0100 #### [facility] [address] [place], [address] Hematocrit (Bld) [Volume fraction] 45.6 % Normal 40-54 [facility] Comment on above: Order Comment: Order Date: 07/24/24 Order Info: 0184-1 - CBCD Performed By: #### L 500.4050, L501.9985, L501.9910, L500.4100, L100.0100 #### [facility] [address] [place], [address] Hemoglobin (Bld) [Mass/Vol] 15.6 g/dL Normal 13.0-16.5 [facility] Comment on above: Order Comment: Order Date: 07/24/24 Order Info: 0184-1 - CBCD Performed By: #### L 500.4050, L501.9985, L501.9910, L500.4100, L100.0100 #### [facility] [address] [place], [address] IG% 0.600 Normal 0.0-0.9 [facility] Comment on above: Order Comment: Order Date: 07/24/24 Order Info: 0184-1 - CBCD Result Comment: IG% - Immature Granulocytes (promyelocytes, myelocytes and metamyelocytes) > 1% indicates that a LEFT SHIFT is Present. Performed By: #### L 500.4050, L501.9985, L501.9910, L500.4100, L100.0100 #### [facility] [address] [place], [address] Lymphocytes/100 WBC (Bld) 27.4 % Normal 19-41 [facility] Comment on above: Order Comment: Order Date: 07/24/24 Order Info: 0184-1 - CBCD Performed By: #### L 500.4050, L501.9985, L501.9910, L500.4100, L100.0100 #### [facility] [address] [place], [address] MCH (RBC) [Entitic mass] 30.8 pg Normal 27.0-32.0 [facility] Comment on above: Order Comment: Order Date: 07/24/24 Order Info: 0184- - CBCD Performed By: #### L 500.4050, L501.9985, L501.9910, L500.4100, L100.0100 #### [facility] [address] [facility] [place], [address] MCHC (RBC) [Mass/Vol] 34.2 g/dL Normal 32-36 [facility] Comment on above: Order Comment: Order Date: 07/24/24 Order Info: 0184- - CBCD Performed By: #### L 500.4050, L501.9985, L501.9910, L500.4100, L100.0100 #### [facility] [address] [facility] [place], [address] MCV (RBC) [Entitic vol] 89.9 fL Normal 80-94 [facility] Comment on above: Order Comment: Order Date: 07/24/24 Order Info: 0184- - CBCD Performed By: #### L 500.4050, L501.9985, L501.9910, L500.4100, L100.0100 #### [facility] [address] [place], [address] Monocytes/100 WBC (Bld) 10.7 % High 0-10 [facility] Comment on above: Order Comment: Order Date: 07/24/24 Order Info: 0184- - CBCD Performed By: #### L 500.4050, L501.9985, L501.9910, L500.4100, L100.0100 #### [facility] [address] [place], [address] Neutrophils/100 WBC (Bld) 56.1 % Normal 47-70 [facility] Comment on above: Order Comment: Order Date: 07/24/24 Order Info: 0184-1 - CBCD Performed By: #### L 500.4050, L501.9985, L501.9910, L500.4100, L100.0100 #### [facility] [address] [place], [address] Nucleated RBC (Bld) [#/Vol] 0 10*3/uL Normal 0-5 [facility] Comment on above: Order Comment: Order Date: 07/24/24 Order Info: 0184- - CBCD Performed By: #### L 500.4050, L501.9985, L501.9910, L500.4100, L100.0100 #### [facility] [address] [place], [address] Platelet mean volume (Bld) [Entitic vol] 10.3 fL Normal 6.2-12.0 [facility] Comment on above: Order Comment: Order Date: 07/24/24 Order Info: 0184- - CBCD Performed By: #### L 500.4050, L501.9985, L501.9910, L500.4100, L100.0100 #### [facility] [address] [place], [address] Platelets (Bld) [#/Vol] 300 10*3/uL Normal 150-450 [facility] Comment on above: Order Comment: Order Date: 07/24/24 Order Info: 0184-1 - CBCD Performed By: #### L 500.4050, L501.9985, L501.9910, L500.4100, L100.0100 #### [facility] [address] [place], [place], [address] RBC (Bld) [#/Vol] 5.07 10*6/uL Normal 4.6-6.2 [facility] Comment on above: Order Comment: Order Date: 07/24/24 Order Info: 0184-1 - CBCD Performed By: #### L 500.4050, L501.9985, L501.9910, L500.4100, L100.0100 #### [facility] [address] [place], [place], [address] RDW SD 43.8 fl Normal 35.1-43.9 [facility] Comment on above: Order Comment: Order Date: 07/24/24 Order Info: 0184-1 - CBCD Performed By: #### L 500.4050, L501.9985, L501.9910, L500.4100, L100.0100 #### [facility] [address] [place], [address] WBC (Bld) [#/Vol] 6.4 10*3/uL Normal 4.4-11.0 [facility] Comment on above: Order Comment: Order Date: 07/24/24 Order Info: 0184-1 - CBCD Performed By: #### L 500.4050, L501.9985, L501.9910, L500.4100, L100.0100 #### [facility] [address] [place], [address] Calculated very low density lipoprotein (VLDL) cholesterol measurementOrdered By: Mejia Swain on 11-04-2024 Calculated very low density lipoprotein (VLDL) cholesterol measurement 31 mg/dL 5-40 [facility] Carbon dioxide, total [Moles /volume] in Central venous bloodOrdered By: Mejia Swain on 11-04-2024 CO2 [Moles/Vol] 24.5 mmol/L 21.0-32.0 [facility] Chloride assayOrdered By: Mercy Swain on 11-04-2024 Chloride [Moles/Vol] 103 mmol/L 98-108 [facility] Comprehensive Metabolic Prof ilon 11-04-2024 Albumin [Mass/Vol] 3.9 g/dL Normal 3.5-5.0 [facility] Comment on above: Order Comment: Order Date: 07/24/24 Order Info: 0786-1 - CMP Order Info: [id number] - LIPID Order Info: [id number] - PSA Performed By: #### L 500.4050, L501.9985, L501.9910, L500.4100, L100.0100 #### [facility] [address] [place], [address] Albumin/Globulin [Mass ratio] 1.2 {ratio} Normal 0.9-2.4 [facility] Comment on above: Order Comment: Order Date: 07/24/24 Order Info: 07 - CMP Order Info: - LIPID Order Info: [id number] - PSA Performed By: #### L 500.4050, L501.9985, L501.9910, L500.4100, L100.0100 #### [facility] [address] [place], [address] ALK PHOS 67 U/L Normal 40-129 [facility] Comment on above: Order Comment: Order Date: 07/24/24 Order Info: 0786- - CMP Order Info: [id number] - LIPID Order Info: [id number] - PSA Performed By: #### L 500.4050, L501.9985, L501.9910, L500.4100, L100.0100 #### [facility] [address] [place], [address] ALT [Catalytic activity/Vol] 22 U/L Normal <=46 [facility] Comment on above: Order Comment: Order Date: 07/24/24 Order Info: 0786- - CMP Order Info: [id number] - LIPID Order Info: 2851 - PSA Performed By: #### L 500.4050, L501.9985, L501.9910, L500.4100, L100.0100 #### [facility] [address] [place], [address] AST [Catalytic activity/Vol] 25 U/L Normal <=37 [facility] Comment on above: Order Comment: Order Date: 07/24/24 Order Info: 0786-1 - CMP Order Info: [id number] - LIPID Order Info: [id number] - PSA Performed By: #### L 500.4050, L501.9985, L501.9910, L500.4100, L100.0100 #### [facility] [address] [place], [address] Bilirubin [Mass/Vol] 0.41 mg/dL Normal 0.00-1.30 [facility] Comment on above: Order Comment: Order Date: 07/24/24 Order Info: 07 - CMP Order Info: [id number] - LIPID Order Info: [id number] - PSA Performed By: #### L 500.4050, L501.9985, L501.9910, L500.4100, L100.0100 #### [facility] [address] [place], [address] BUN/CRE 11.8 RATIO Normal 10-20 [facility] Comment on above: Order Comment: Order Date: 07/24/24 Order Info: [id number] - CMP Order Info: [id number] - LIPID Order Info: [id number] - PSA Performed By: #### L 500.4050, L501.9985, L501.9910, L500.4100, L100.0100 #### [facility] [address] [place], [address] Calcium [Mass/Vol] 8.8 mg/dL Normal 7.6-11.0 [facility] Comment on above: Order Comment: Order Date: 07/24/24 Order Info: [id number] - CMP Order Info: [id number] - LIPID Order Info: [id number] - PSA Performed By: #### L 500.4050, L501.9985, L501.9910, L500.4100, L100.0100 #### [facility] [address] [place], [address] Chloride [Moles/Vol] 103 mmol/L Normal 98-108 [facility] Comment on above: Order Comment: Order Date: 07/24/24 Order Info: [id number] - CMP Order Info: [id number] - LIPID Order Info: 285-1 - PSA Performed By: #### L 500.4050, L501.9985, L501.9910, L500.4100, L100.0100 #### [facility] [address] [place], [address] CO2 [Moles/Vol] 24.5 mmol/L Normal 21.0-32.0 [facility] Comment on above: Order Comment: Order Date: 07/24/24 Order Info: 07 - CMP Order Info: [id number] - LIPID Order Info: [id number] - PSA Performed By: #### L 500.4050, L501.9985, L501.9910, L500.4100, L100.0100 #### [facility] [address] [place], [address] Creatinine [Mass/Vol] 0.96 mg/dL Normal 0.70-1.20 [facility] Comment on above: Order Comment: Order Date: 07/24/24 Order Info: 0786 - CMP Order Info: [id number] - LIPID Order Info: [id number] - PSA Performed By: #### L 500.4050, L501.9985, L501.9910, L500.4100, L100.0100 #### [facility] [address] [place], [address] GAP 11 Normal 5-15 [facility] Comment on above: Order Comment: Order Date: 07/24/24 Order Info: [id number] - CMP Order Info: [id number] - LIPID Order Info: [id number] - PSA Performed By: #### L 500.4050, L501.9985, L501.9910, L500.4100, L100.0100 #### [facility] [address] [place], [address] GFR/1.73 sq M.predicted among non-blacks MDRD (S/P/Bld) [Vol rate/Area] 94 mL/min/{1.73_m2} Normal >60 [facility] Comment on above: Order Comment: Order Date: 07/24/24 Order Info: 0786- - CMP Order Info: [id number] - LIPID Order Info: [id number] - PSA Result Comment: mL/m in/1.73m2 CKD-EPI Creatinine Equation (2020) Performed By: #### L 500.4050, L501.9985, L501.9910, L500.4100, L100.0100 #### [facility] [address] [place], [address] Globulin (S) [Mass/Vol] 3.1 g/dL Normal 2.2-4.2 [facility] Comment on above: Order Comment: Order Date: 07/24/24 Order Info: 0786 - CMP Order Info: [id number] - LIPID Order Info: [id number] - PSA Performed By: #### L 500.4050, L501.9985, L501.9910, L500.4100, L100.0100 #### [facility] [address] [place], [address] Glucose [Mass/Vol] 109 mg/dL High 70-99 [facility] Comment on above: Order Comment: Order Date: 07/24/24 Order Info: 0786- - CMP Order Info: [id number] - LIPID Order Info: [id number] - PSA Performed By: #### L 500.4050, L501.9985, L501.9910, L500.4100, L100.0100 #### [facility] [address] [place], [address] Potassium [Moles/Vol] 3.7 mmol/L Normal 3.3-5.1 [facility] Comment on above: Order Comment: Order Date: 07/24/24 Order Info: 0786-1 - CMP Order Info: [id number] - LIPID Order Info: [id number] - PSA Performed By: #### L 500.4050, L501.9985, L501.9910, L500.4100, L100.0100 #### [facility] [address] [place], [address] Sodium [Moles/Vol] 139 mmol/L Normal 133-145 [facility] Comment on above: Order Comment: Order Date: 07/24/24 Order Info: 07 - CMP Order Info: [id number] - LIPID Order Info: [id number] - PSA Performed By: #### L 500.4050, L501.9985, L501.9910, L500.4100, L100.0100 #### [facility] [address] [place], [address] T PROT 7.0 g/dL Normal 5.9-8.4 [facility] Comment on above: Order Comment: Order Date: 07/24/24 Order Info: 0786- - CMP Order Info: [id number] - LIPID Order Info: [id number] - PSA Performed By: #### L 500.4050, L501.9985, L501.9910, L500.4100, L100.0100 #### [facility] [address] [place], [address] Urea nitrogen [Mass/Vol] 11 mg/dL Normal 4-19 [facility] Comment on above: Order Comment: Order Date: 07/24/24 Order Info: 0786- - CMP Order Info: [id number] - LIPID Order Info: [id number] - PSA Performed By: #### L 500.4050, L501.9985, L501.9910, L500.4100, L100.0100 #### [facility] [address] [place], [address] Eosinophil percentageOrdered By: Mejia Swain on 11-04-2024 Eosinophils/100 WBC (Bld) 3.9 % 0-5 [facility] Erythrocyte distribution wid th ratioOrdered By: Mejia Swain on 11-04-2024 Erythrocyte distribution width (RBC) [Ratio] 13.5 % 11.6-14.6 [facility] Erythrocyte distribution wid th standard deviationOrdered By: Mejia Swain on 11-04-2024 Erythrocyte distribution width (RBC) [Ratio] 43.8 fl 35.1-43.9 [facility] Glomerular filtration rate ( GFR) estimation/1.73 sq m using serum, plasma, or whole bOrdered By: Mejia Swain on 11-04-2024 GFR/1.73 sq M.predicted among non-blacks MDRD (S/P/Bld) [Vol rate/Area] 94 mL/min/{1.73_m2} >60 [facility] Comment on above: mL/min/1.73m2 CKD-EP I Creatinine Equation (2020) Hematocrit Auto (Bld) [Volum e fraction]Ordered By: Mejia Swain on 11-04-2024 Hematocrit (Bld) [Volume fraction] 45.6 % 40-54 [facility] Hemoglobin A1c percentageOrd ered By: Mejia Swain on 11-04-2024 HbA1c (Bld) [Mass fraction] 5.8 % High <=5.6 [facility] Comment on above: Normal < 5.7 % Predi abetic 5.7 - 6.4 % Diabetic >or= 6.5 % Please note range changes. Order Comment: Order Date: 07/24/24 Order Info: [id number] - A1C Result Comment: Norm al < 5.7 % Prediabetic 5.7 - 6.4 % Diabetic >or= 6.5 % Please note range changes. Performed By: #### L 500.4050, L501.9985, L501.9910, L500.4100, L100.0100 #### [facility] [address] [place], [place], [address] Hemoglobin measurementOrdere d By: Mejia Swain on 11-04-2024 Hemoglobin (Bld) [Mass/Vol] 15.6 g/dL 13.0-16.5 [facility] Immature granulocytes/100 WB C Auto (Bld)Ordered By: Mejia Swain on 11-04-2024 Immature granulocytes/100 WBC (Bld) 0.600 % 0.0-0.9 [facility] Comment on above: IG% - Immature Granu locytes (promyelocytes, myelocytes and metamyelocytes) > 1% indicates that a LEFT SHIFT is Present. LDL calc ser/plasOrdered By: Mejia Swain on 11-04-2024 Cholesterol in LDL [Mass/Vol] 128 mg/dL [facility] Comment on above: Qmocqlzimg=510-555 m g/dL & Higher Ljrr=294 mg/dL or greater Laboratory - Chemistry and C hemistry - challengeOrdered By: Mejia Swain on 11-04-2024 AST [Catalytic activity/Vol] 25 U/L <38 [facility] Lipid Profileon 11-04-2024 CHOL:HDL 6.[address] [facility] Comment on above: Order Comment: Order Date: 07/24/24 Order Info: [id number] - CMP Order Info: [id number] - LIPID Order Info: [id number] - PSA Performed By: #### L 500.4050, L501.9985, L501.9910, L500.4100, L100.0100 #### [facility] [address] [place], [address] Cholesterol [Mass/Vol] 187 mg/dL Normal <=200 [facility] Comment on above: Order Comment: Order Date: 07/24/24 Order Info: [id number] - CMP Order Info: [id number] - LIPID Order Info: [id number] - PSA Result Comment: Chol esterol level, Desirable <200 mg/dL Borderline high cholesterol 200-239 mg/dL High cholesterol >=240 mg/dL Recommendations of the NCEP Adult Treatment Panel for the following risk-cutoff thresholds for the [place] population. Performed By: #### L 500.4050, L501.9985, L501.9910, L500.4100, L100.0100 #### [facility] [address] [place], [address] Cholesterol in HDL [Mass/Vol] 28 mg/dL Low [facility] Comment on above: Order Comment: Order Date: 07/24/24 Order Info: 07 - CMP Order Info: - LIPID Order Info: [id number] - PSA Result Comment: [place] on[place] Cholesterol Education Program (NCEP) guidelines: <40 mg/dL: Low HDL-cholesterol (major risk factor for CHD) >= 60 mg/dL: High HDL-cholesterol (negative risk factor for CHD) HDL-cholesterol is affected by a number of factors, e.g. smoking, exercise, hormones, sex and age. Performed By: #### L 500.4050, L501.9985, L501.9910, L500.4100, L100.0100 #### [facility] [address] [place], [address] Cholesterol in LDL [Mass/Vol] 128 mg/dL Normal [facility] Comment on above: Order Comment: Order Date: 07/24/24 Order Info: [id number] - CMP Order Info: - LIPID Order Info: [id number] - PSA Result Comment: Bord hukarn=230-976 mg/dL Higher Oyvw=352 mg/dL or greater Performed By: #### L 500.4050, L501.9985, L501.9910, L500.4100, L100.0100 #### [facility] [address] [place], [address] Cholesterol in VLDL [Mass/Vol] 31 mg/dL Normal 5-40 [facility] Comment on above: Order Comment: Order Date: 07/24/24 Order Info: [id number] - CMP Order Info: - LIPID Order Info: [id number] - PSA Performed By: #### L 500.4050, L501.9985, L501.9910, L500.4100, L100.0100 #### [facility] [address] [place], [place], [address] Triglyceride [Mass/Vol] 156 mg/dL Normal [facility] Comment on above: Order Comment: Order Date: 07/24/24 Order Info: [id number] - CMP Order Info: [id number] - LIPID Order Info: 2857-1 - PSA Result Comment: The drugs N-Acetylcysteine and Metamizole may falsely depress this assay. Normal range: <150 mg/dL Borderline High: 150-199 mg/dL High: 200-499 mg/dL Very High: >500 mg/dL Performed By: #### L 500.4050, L501.9985, L501.9910, L500.4100, L100.0100 #### [facility] [address] [place], [address] MCV (mean corpuscular volume ) determinationOrdered By: Mejia Swain on 11-04-2024 MCV (RBC) [Entitic vol] 89.9 fL 80-94 [facility] Mean corpuscular hemoglobin (MCH) determinationOrdered By: Mejia Swain on 11-04-2024 MCH (RBC) [Entitic mass] 30.8 pg 27.0-32.0 [facility] Mean corpuscular hemoglobin concentration (MCHC) determinationOrdered By: Mejia Swain on 11-04-2024 MCHC (RBC) [Mass/Vol] 34.2 g/dL 32-36 [facility] Mean platelet volume determi nationOrdered By: Mejia Swain on 11-04-2024 Platelet mean volume (Bld) [Entitic vol] 10.3 fL 6.2-12.0 [facility] Monocyte percentageOrdered B y: Mejia Swain on 11-04-2024 Monocytes/100 WBC (Bld) 10.7 % High 0-10 [facility] Neutrophil percentageOrdered By: Mejia Swain on 11-04-2024 Neutrophils/100 WBC (Bld) 56.1 % 47-70 [facility] Nucleated red blood cell per centageOrdered By: Mejia Swain on 11-04-2024 Nucleated RBC/100 WBC (Bld) [Ratio] 0 % 0-5 [facility] PSA,Total - Annual Screenon 11-04-2024 PSA,TOT SCREEN 1.20 ng/mL Normal 0.02-4.00 [facility] Comment on above: Order Comment: Order Date: 07/19/23 Order Info: 0184-1 - CBCD Result Comment: This test was performed using the [employer] tPSA method. Measured values of a patient??sample can vary depending on the testing procedure used. PSA values determined on patient samples by different testing procedures cannot be used interchangeably. If there is a change in PSA assays while monitoring therapy, sequential testing should be performed to confirm baseline values. Performed By: #### L 501.9520, L501.9985, L500.4050, L500.4100, L100.0100 #### [facility] [address] [place], [address] Platelet countOrdered By: Mercy Swain on 11-04-2024 Platelets (Bld) [#/Vol] 300 10*3/uL 150-450 [facility] Potassium measurement (mass/ volume)Ordered By: Mejia Swain on 11-04-2024 Potassium (Unsp spec) [Mass/Vol] 3.7 mmol/L 3.3-5.1 [facility] RBC Auto (Bld) [#/Vol]Ordere d By: Mejia Swain on 11-04-2024 RBC (Bld) [#/Vol] 5.07 10*6/uL 4.6-6.2 [facility] Screening total cholesterol/ high density lipoprotein (HDL) cholesterol ratioOrdered By: Mejia Swain on 11-04-2024 Cholesterol.total/Daniela sterol in HDL [Mass ratio] 6.75 {ratio} [facility] Serum creatinine measurement (mass/volume)Ordered By: Mejia Swain on 11-04-2024 Creatinine [Mass/Vol] 0.96 mg/dL 0.70-1.20 [facility] Serum globulin measurementOr dered By: Mejia Swain on 11-04-2024 Globulin (S) [Mass/Vol] 3.1 g/dL 2.2-4.2 [facility] Serum glucose measurement (m ass/volume)Ordered By: Mejia Swain on 11-04-2024 Glucose [Mass/Vol] 109 mg/dL High 70-99 [facility] Serum or plasma alanine pisano otransferase (ALT) measurementOrdered By: Mejia Swain on 11-04-2024 ALT [Catalytic activity/Vol] 22 U/L <47 [facility] Serum or plasma albumin michael urement (mass/volume)Ordered By: Mejia Swain on 11-04-2024 Albumin [Mass/Vol] 3.9 g/dL 3.5-5.0 [facility] Serum or plasma albumin/glob ulin mass ratioOrdered By: Mejia Swain on 11-04-2024 Albumin/Globulin [Mass ratio] 1.2 {ratio} 0.9-2.4 [facility] Serum or plasma alkaline won sphatase measurementOrdered By: Mejia Swain on 11-04-2024 ALP [Catalytic activity/Vol] 67 U/L 40-129 [facility] Serum or plasma calcium michael urement (mass/volume)Ordered By: Mejia Swain on 11-04-2024 Calcium [Mass/Vol] 8.8 mg/dL 7.6-11.0 [facility] Serum or plasma cholesterol in HDL measurement (mass/volume)Ordered By: Mejia Swain on 11-04-2024 Cholesterol in HDL [Mass/Vol] 28 mg/dL Low >40 [facility] Comment on above: National Cholesterol Education Program (NCEP) guidelines:<40 mg/dL: Low HDL-cholesterol (major risk factor for CHD)>= 60 mg/dL: High HDL-cholesterol (negative risk factor for CHD)HDL-cholesterol is affected by a number of factors, e.g. smoking, exercise, hormones, sex and age. Serum or plasma cholesterol measurement (mass/volume)Ordered By: Mejia Swain on 11-04-2024 Cholesterol [Mass/Vol] 187 mg/dL <201 [facility] Comment on above: Cholesterol level, D esirable <200 mg/dLBorderline high cholesterol 200-239 mg/dLHigh cholesterol >=240 mg/dLRecommendations of the NCEP Adult Treatment Panel for the following risk-cutoff thresholds for the [place] population. Serum or plasma urea nitroge n measurement (mass/volume)Ordered By: Mejia Swain on 11-04-2024 Urea nitrogen [Mass/Vol] 11 mg/dL 4-19 [facility] Sodium levelOrdered By: Mejia Swain on 11-04-2024 Sodium [Moles/Vol] 139 mmol/L 133-145 [facility] Total proteinOrdered By: Leonel Swain on 11-04-2024 Protein [Mass/Vol] 7.0 g/dL 5.9-8.4 [facility] Triglycerides measurementOrd ered By: Mejia Swain on 11-04-2024 Triglyceride [Mass/Vol] 156 mg/dL <199 [facility] Comment on above: The drugs N-Acetylcy steine and Metamizole may falsely depress this assay. Normal range: <150 mg/dLBorderline High: 150-199 mg/dLHigh: 200-499 mg/dLVery High: >500 mg/dL White blood cell (WBC) count Ordered By: Mejia Swain on 11-04-2024 WBC (Bld) [#/Vol] 6.4 10*3/uL 4.4-11.0 [facility] Absolute lymphocyte countOrd ered By: Mejia Swain on 07-24-2024 Lymphocytes Auto (Unsp spec) [#/Vol] 1.56 10*3/uL 0.83-4.51 [facility] Absolute neutrophil countOrd ered By: Mejia Swain on 07-24-2024 Neutrophils (Bld) [#/Vol] 4.7 10*3/uL 2.0-7.7 [facility] Albumin to globulin ratioOrd ered By: Mejia Swain on 07-24-2024 Albumin/Globulin [Mass ratio] 0.9 {ratio} Normal 0.9-2.4 [facility] Comment on above: Order Comment: Order Date: 07/19/23 Order Info: 0184-1 - CBCD Performed By: #### L 501.9520, L501.9985, L500.4050, L500.4100, L100.0100 #### [facility] [place] [address], [address] Automated blood erythrocyte countOrdered By: Mejia Swain on 07-24-2024 RBC (Bld) [#/Vol] 5.40 10*6/uL Normal 4.6-6.2 [facility] Comment on above: Order Comment: Order Date: 07/19/23 Order Info: 018- - CBCD Performed By: #### L 501.9520, L501.9985, L500.4050, L500.4100, L100.0100 #### [facility] [address] [place], [place], [id number] Automated blood hematocrit ( percentage)Ordered By: Mejia Swain on 07-24-2024 Hematocrit (Bld) [Volume fraction] 48.0 % Normal 40-54 [facility] Comment on above: Order Comment: Order Date: 07/19/23 Order Info: 01809-24 - CBCD Performed By: #### L 501.9520, L501.9985, L500.4050, L500.4100, L100.0100 #### [facility] [address] [place], [address] Automated lymphocyte count a s percentage of total leukocytesOrdered By: Mejia Swain on 07-24-2024 Lymphocytes/100 WBC Auto (Unsp spec) 21.0 % 19-41 [facility] Basophil percentageOrdered B y: Mejia Swain on 07-24-2024 Basophils/100 WBC (Bld) 0.9 % Normal 0-1 [facility] Comment on above: Order Comment: Order Date: 07/19/23 Order Info: 01809-24 - CBCD Performed By: #### L 501.9520, L501.9985, L500.4050, L500.4100, L100.0100 #### [facility] [address] [place], [place], [id number] Bilirubin Test strip Ql (U)O rdered By: Mejia Swain on 07-24-2024 Bilirubin Ql (U) Negative Negative [facility] Bilirubin, totalOrdered By: Mejia Swain on 07-24-2024 Bilirubin [Mass/Vol] 0.40 mg/dL Normal 0.20-1.00 [facility] Comment on above: For patients on eltr ombopag therapy, use of Dimension [place] TBIL is not recommended. Order Comment: Order Date: 07/19/23 Order Info: 0184-1 - CBCD Result Comment: For patients on eltrombopag therapy, use of Dimension [place] TBIL is not recommended. Performed By: #### L 501.9520, L501.9985, L500.4050, L500.4100, L100.0100 #### [facility] [address] [place], [address] Blood urea nitrogen (BUN)/cr eatinine ratioOrdered By: Mejia Swain on 07-24-2024 Urea nitrogen/Creatinine [Mass ratio] 12.7 mg/mg 10-20 [facility] CBC W/Diff, Automatedon 06-27 Absolute Lymph 1.56 X10 3/uL Normal 0.83-4.51 [facility] Comment on above: Order Comment: Order Date: 07/19/23 Order Info: 0184-1 - CBCD Performed By: #### L 501.9520, L501.9985, L500.4050, L500.4100, L100.0100 #### [facility] [address] [place], [address] Absolute Neut 4.7 X10 3/uL Normal 2.0-7.7 [facility] Comment on above: Order Comment: Order Date: 07/19/23 Order Info: 0184-1 - CBCD Performed By: #### L 501.9520, L501.9985, L500.4050, L500.4100, L100.0100 #### [facility] [address] [place], [address] IG% 0.500 Normal 0.0-0.9 [facility] Comment on above: Order Comment: Order Date: 07/19/23 Order Info: 0184-1 - CBCD Result Comment: IG% - Immature Granulocytes (promyelocytes, myelocytes and metamyelocytes) > 1% indicates that a LEFT SHIFT is Present. Performed By: #### L 501.9520, L501.9985, L500.4050, L500.4100, L100.0100 #### [facility] [address] [place], [address] Lymphocytes/100 WBC (Bld) 21.0 % Normal 19-41 [facility] Comment on above: Order Comment: Order Date: 07/19/23 Order Info: 0184-1 - CBCD Performed By: #### L 501.9520, L501.9985, L500.4050, L500.4100, L100.0100 #### [facility] [address] [place], [address] Nucleated RBC (Bld) [#/Vol] 0 10*3/uL Normal 0-5 [facility] Comment on above: Order Comment: Order Date: 07/19/23 Order Info: 0184-1 - CBCD Performed By: #### L 501.9520, L501.9985, L500.4050, L500.4100, L100.0100 #### [facility] [address] [place], [address] RDW SD 44.3 fl High 35.1-43.9 [facility] Comment on above: Order Comment: Order Date: 07/19/23 Order Info: 0184-1 - CBCD Performed By: #### L 501.9520, L501.9985, L500.4050, L500.4100, L100.0100 #### [facility] [address] [place], [address] Carbon dioxide measurementOr dered By: Mejia Swain on 07-24-2024 CO2 [Moles/Vol] 27.0 mmol/L Normal 21.0-32.0 [facility] Comment on above: Order Comment: Order Date: 07/19/23 Order Info: 0184-1 - CBCD Performed By: #### L 501.9520, L501.9985, L500.4050, L500.4100, L100.0100 #### [facility] [address] [place], [address] Chloride measurementOrdered By: Mejia Swain on 07-24-2024 Chloride [Moles/Vol] 104 mmol/L Normal 98-107 [facility] Comment on above: Order Comment: Order Date: 07/19/23 Order Info: 0184-1 - CBCD Performed By: #### L 501.9520, L501.9985, L500.4050, L500.4100, L100.0100 #### [facility] [address] [place], [address] Comprehensive Metabolic Prof ilon 07-24-2024 ALK P 71 U/L Normal 45-117 [facility] Comment on above: Order Comment: Order Date: 07/19/23 Order Info: 018-1 - CBCD Performed By: #### L 501.9520, L501.9985, L500.4050, L500.4100, L100.0100 #### [facility] [address] [place], [address] BUN/CRE 12.7 RATIO Normal 10-20 [facility] Comment on above: Order Comment: Order Date: 07/19/23 Order Info: 0184-1 - CBCD Performed By: #### L 501.9520, L501.9985, L500.4050, L500.4100, L100.0100 #### [facility] [address] [place], [address] CA,Total 9.2 mg/dL Normal 8.5-10.1 [facility] Comment on above: Order Comment: Order Date: 07/19/23 Order Info: 0184-1 - CBCD Performed By: #### L 501.9520, L501.9985, L500.4050, L500.4100, L100.0100 #### [facility] [address] [place], [address] EST GFR - AA 98 mL/min Normal >60 [facility] Comment on above: Order Comment: Order Date: 07/19/23 Order Info: 0184-1 - CBCD Result Comment: Afri can Cymraes GFR Calc Performed By: #### L 501.9520, L501.9985, L500.4050, L500.4100, L100.0100 #### [facility] [address] [place], [address] GAP 7 Normal 5-15 [facility] Comment on above: Order Comment: Order Date: 07/19/23 Order Info: 0184- - CBCD Performed By: #### L 501.9520, L501.9985, L500.4050, L500.4100, L100.0100 #### [facility] [address] [place], [address] T PROT 8.2 g/dL Normal 6.4-8.2 [facility] Comment on above: Order Comment: Order Date: 07/19/23 Order Info: 0184-1 - CBCD Performed By: #### L 501.9520, L501.9985, L500.4050, L500.4100, L100.0100 #### [facility] [address] [place], [address] Comprehensive Metabolic Prof ilOrdered By: Mejia Swain on 07-24-2024 AST [Catalytic activity/Vol] 22 U/L Normal 15-37 [facility] Comment on above: Order Comment: Order Date: 07/19/23 Order Info: 0184-1 - CBCD Performed By: #### L 501.9520, L501.9985, L500.4050, L500.4100, L100.0100 #### [facility] [address] [place], [address] Eosinophil percentageOrdered By: Mejia Swain on 07-24-2024 Eosinophils/100 WBC (Bld) 3.6 % Normal 0-5 [facility] Comment on above: Order Comment: Order Date: 07/19/23 Order Info: 018- - CBCD Performed By: #### L 501.9520, L501.9985, L500.4050, L500.4100, L100.0100 #### [facility] [address] [place], [address] Erythrocyte distribution wid th ratioOrdered By: Mejia Swain on 07-24-2024 Erythrocyte distribution width (RBC) [Ratio] 13.8 % Normal 11.6-14.6 [facility] Comment on above: Order Comment: Order Date: 07/19/23 Order Info: 01809-24 - CBCD Performed By: #### L 501.9520, L501.9985, L500.4050, L500.4100, L100.0100 #### [facility] [address] [place], [place], [id number] Erythrocyte distribution wid th standard deviationOrdered By: Mejia Swain on 07-24-2024 Erythrocyte distribution width (RBC) [Ratio] 44.3 fl High 35.1-43.9 [facility] Glomerular filtration rate ( GFR) estimationOrdered By: Mejia Swain on 07-24-2024 GFR/1.73 sq M.predicted among non-blacks MDRD (S/P/Bld) [Vol rate/Area] 81 mL/min/{1.73_m2} Normal >60 [facility] Comment on above: Non- GFR Calc Order Comment: Order Date: 07/19/23 Order Info: 01809-24 - CBCD Result Comment: Non- GFR Calc Performed By: #### L 501.9520, L501.9985, L500.4050, L500.4100, L100.0100 #### [facility] [address] [place], [place], [address] Glucose measurementOrdered B y: Mejia Swain on 07-24-2024 Glucose [Mass/Vol] 91 mg/dL Normal 74-106 [facility] Comment on above: Order Comment: Order Date: 07/19/23 Order Info: 0184-1 - CBCD Performed By: #### L 501.9520, L501.9985, L500.4050, L500.4100, L100.0100 #### [facility] [address] [place], [place], [id number] Hemoglobin A1c percentageOrd ered By: Mejia Swain on 07-24-2024 HbA1c (Bld) [Mass fraction] 5.7 % High 3.8-5.6 [facility] Comment on above: Normal < 5.7 % Predi abetic 5.7 - 6.4 % Diabetic >or= 6.5 % Please note range changes. Order Comment: Order Date: 07/19/23 Order Info: 0184-1 - CBCD Result Comment: Norm al < 5.7 % Prediabetic 5.7 - 6.4 % Diabetic >or= 6.5 % Please note range changes. Performed By: #### L 501.9520, L501.9985, L500.4050, L500.4100, L100.0100 #### [facility] [address] [place], [place], [id number] Hemoglobin measurementOrdere d By: Mejia Swain on 07-24-2024 Hemoglobin (Bld) [Mass/Vol] 16.1 g/dL Normal 13.0-16.5 [facility] Comment on above: Order Comment: Order Date: 07/19/23 Order Info: 0184-1 - CBCD Performed By: #### L 501.9520, L501.9985, L500.4050, L500.4100, L100.0100 #### [facility] [address] [place], [place], [id number] High density lipoprotein (HD L) measurementOrdered By: Mejia Swain on 07-24-2024 Cholesterol in HDL [Mass/Vol] 32 mg/dL Low [facility] Comment on above: The drugs N-Acetylcy steine and Metamizole may falsely depress this assay. Reference Range HDL <40 mg/dL Low HDL Cholesterol HDL >or= 60 mg/dL High HDL Cholesterol Order Comment: Order Date: 07/19/23 Order Info: 0184-1 - CBCD Result Comment: The drugs N-Acetylcysteine and Metamizole may falsely depress this assay. Reference Range HDL <40 mg/dL Low HDL Cholesterol HDL >or= 60 mg/dL High HDL Cholesterol Performed By: #### L 501.9520, L501.9985, L500.4050, L500.4100, L100.0100 #### [facility] [address] [place], [address] Immature granulocytes/100 WB C Auto (Bld)Ordered By: Mejia Swain on 07-24-2024 Immature granulocytes/100 WBC (Bld) 0.500 % 0.0-0.9 [facility] Comment on above: IG% - Immature Granu locytes (promyelocytes, myelocytes and metamyelocytes) > 1% indicates that a LEFT SHIFT is Present. Ketones Test strip Ql (U)Ord ered By: Mejia Swain on 07-24-2024 Ketones Ql (U) Negative Negative [facility] Lipid Profileon 07-24-2024 Cholesterol in VLDL [Mass/Vol] 47 mg/dL High 5-40 [facility] Comment on above: Order Comment: Order Date: 07/19/23 Order Info: 0184-1 - CBCD Performed By: #### L 501.9520, L501.9985, L500.4050, L500.4100, L100.0100 #### [facility] [address] [place], [place], [id number] Low density lipoprotein (LDL ) cholesterol measurementOrdered By: Mejia Swain on 07-24-2024 Cholesterol in LDL [Mass/Vol] 132 mg/dL High 0-130 [facility] Comment on above: Order Comment: Order Date: 07/19/23 Order Info: 0184-1 - CBCD Performed By: #### L 501.9520, L501.9985, L500.4050, L500.4100, L100.0100 #### [facility] [address] [place], [address] MCV (mean corpuscular volume ) determinationOrdered By: Mejia Swain on 07-24-2024 MCV (RBC) [Entitic vol] 88.9 fL Normal 80-94 [facility] Comment on above: Order Comment: Order Date: 07/19/23 Order Info: 0184-1 - CBCD Performed By: #### L 501.9520, L501.9985, L500.4050, L500.4100, L100.0100 #### [facility] [address] [place], [address] ( Mean corpuscular hemoglobin (MCH) determinationOrdered By: Mejia Swain on 07-24-2024 MCH (RBC) [Entitic mass] 29.8 pg Normal 27.0-32.0 [facility] Comment on above: Order Comment: Order Date: 07/19/23 Order Info: 0184-1 - CBCD Performed By: #### L 501.9520, L501.9985, L500.4050, L500.4100, L100.0100 #### [facility] [address] [place], [address] Mean corpuscular hemoglobin concentration (MCHC) determinationOrdered By: Mejia Swain on 07-24-2024 MCHC (RBC) [Mass/Vol] 33.5 g/dL Normal 32-36 [facility] Comment on above: Order Comment: Order Date: 07/19/23 Order Info: 0184-1 - CBCD Performed By: #### L 501.9520, L501.9985, L500.4050, L500.4100, L100.0100 #### [facility] [address] [place], [address] Mean platelet volume determi nationOrdered By: Mejia Swain on 07-24-2024 Platelet mean volume (Bld) [Entitic vol] 10.4 fL Normal 6.2-12.0 [facility] Comment on above: Order Comment: Order Date: 07/19/23 Order Info: 01809-24 - CBCD Performed By: #### L 501.9520, L501.9985, L500.4050, L500.4100, L100.0100 #### [facility] [address] [place], [place], [id number] Microscopic analysis of urin e for red blood cells (RBC)Ordered By: Mejia Swain on 07-24-2024 Microscopic analysis of urine for red blood cells (RBC) 0 SEEN /hpf 0-5 [facility] Monocyte percentageOrdered B y: Mejia Swain on 07-24-2024 Monocytes/100 WBC (Bld) 10.4 % High 0-10 [facility] Comment on above: Order Comment: Order Date: 07/19/23 Order Info: 01809-24 - CBCD Performed By: #### L 501.9520, L501.9985, L500.4050, L500.4100, L100.0100 #### [facility] [address] [place], [address] Mucus LM Ql (Urine sed)Order ed By: Mejia Swain on 07-24-2024 Mucus Ql (Urine sed) 0 SEEN /hpf [facility] Neutrophil percentageOrdered By: Mejia Swain on 07-24-2024 Neutrophils/100 WBC (Bld) 63.6 % Normal 47-70 [facility] Comment on above: Order Comment: Order Date: 07/19/23 Order Info: 01809-24 - CBCD Performed By: #### L 501.9520, L501.9985, L500.4050, L500.4100, L100.0100 #### [facility] [address] [place], [place], [id number] Nitrite Test strip Ql (U)Ord ered By: Mejia Swain on 07-24-2024 Nitrite Ql (U) Negative Negative [facility] Nucleated red blood cell per centageOrdered By: Mejia Swain on 07-24-2024 Nucleated RBC/100 WBC (Bld) [Ratio] 0 % 0-5 [facility] Platelet countOrdered By: Mercy Swain on 07-24-2024 Platelets (Bld) [#/Vol] 348 10*3/uL Normal 150-450 [facility] Comment on above: Order Comment: Order Date: 07/19/23 Order Info: 018- - CBCD Performed By: #### L 501.9520, L501.9985, L500.4050, L500.4100, L100.0100 #### [facility] [address] [place], [place], [id number] Potassium measurementOrdered By: Mejia Swain on 07-24-2024 Potassium [Moles/Vol] 3.4 mmol/L Low 3.5-5.1 [facility] Comment on above: Order Comment: Order Date: 07/19/23 Order Info: 01809-24 - CBCD Performed By: #### L 501.9520, L501.9985, L500.4050, L500.4100, L100.0100 #### [facility] [address] [place], [place], [id number] Protein Test strip Ql (U)Ord ered By: Mejia Swain on 07-24-2024 Protein Ql (U) Negative Negative [facility] Serum anion gap measurementO rdered By: Mejia Swain on 07-24-2024 Anion gap [Moles/Vol] 7 mmol/L 5-15 [facility] Serum globulin measurementOr dered By: Mejia Swain on 07-24-2024 Globulin (S) [Mass/Vol] 4.3 g/dL High 2.2-4.2 [facility] Comment on above: Order Comment: Order Date: 07/19/23 Order Info: 018- - CBCD Performed By: #### L 501.9520, L501.9985, L500.4050, L500.4100, L100.0100 #### [facility] [address] [place], [address] Serum or plasma alanine pisano otransferase (ALT) measurementOrdered By: Mejia Swain on 07-24-2024 ALT [Catalytic activity/Vol] 32 U/L Normal 16-61 [facility] Comment on above: Order Comment: Order Date: 07/19/23 Order Info: 0184-1 - CBCD Performed By: #### L 501.9520, L501.9985, L500.4050, L500.4100, L100.0100 #### [facility] [address] [place], [address] Serum or plasma albumin michael urement (mass/volume)Ordered By: Mejia Swain on 07-24-2024 Albumin [Mass/Vol] 3.9 g/dL Normal 3.2-5.0 [facility] Comment on above: Order Comment: Order Date: 07/19/23 Order Info: 0184-1 - CBCD Performed By: #### L 501.9520, L501.9985, L500.4050, L500.4100, L100.0100 #### [facility] [address] [place], [address] Serum or plasma alkaline won sphatase measurementOrdered By: Mejia Swain on 07-24-2024 ALP [Catalytic activity/Vol] 71 U/L 45-117 [facility] Serum or plasma calcium michael urement (mass/volume)Ordered By: Mejia Swain on 07-24-2024 Calcium [Mass/Vol] 9.2 mg/dL 8.5-10.1 [facility] Serum or plasma cholesterol measurement (mass/volume)Ordered By: Mejia Swain on 07-24-2024 Cholesterol [Mass/Vol] 211 mg/dL High 200 [facility] Comment on above: <200 mg/dL Desirable 200-240 mg/dL Borderline >240 mg/dL High Risk Order Comment: Order Date: 07/19/23 Order Info: 0184-1 - CBCD Result Comment: <200 mg/dL Desirable 200-240 mg/dL Borderline >240 mg/dL High Risk Performed By: #### L 501.9520, L501.9985, L500.4050, L500.4100, L100.0100 #### [facility] [address] [facility] [place], [address] Serum or plasma creatinine m easurement (mass/volume)Ordered By: Mejia Swain on 07-24-2024 Creatinine [Mass/Vol] 1.02 mg/dL Normal 0.70-1.30 [facility] [facility] Comment on above: The validity of the calculated GFR & GFRAA in patients over 70 years has not been determined. Clinical correlation is essential. Order Comment: Order Date: 07/19/23 Order Info: 0184-1 - CBCD Result Comment: The validity of the calculated GFR GFRAA in patients over 70 years has not been determined. Clinical correlation is essential. Performed By: #### L 501.9520, L501.9985, L500.4050, L500.4100, L100.0100 #### [facility] [address] [place], [address] Serum or plasma urea nitroge n measurement (mass/volume)Ordered By: Mejia Swain on 07-24-2024 Urea nitrogen [Mass/Vol] 13 mg/dL Normal 7-18 [facility] Comment on above: Order Comment: Order Date: 07/19/23 Order Info: 0184-1 - CBCD Performed By: #### L 501.9520, L501.9985, L500.4050, L500.4100, L100.0100 #### [facility] [address] [place], [address] Sodium levelOrdered By: Mejia Swain on 07-24-2024 Sodium [Moles/Vol] 138 mmol/L Normal 136-145 [facility] Comment on above: Order Comment: Order Date: 07/19/23 Order Info: 0184-1 - CBCD Performed By: #### L 501.9520, L501.9985, L500.4050, L500.4100, L100.0100 #### [facility] [address] [place], [place], [id number] Squamous epithelial cells de tection in urine sediment by light microscopyOrdered By: Mejia Swain on 07-24-2024 Epithelial cells.squamous LM Ql (Urine sed) 0 SEEN /hpf 0-5 [facility] Total proteinOrdered By: Leonel Swain on 07-24-2024 Protein [Mass/Vol] 8.2 g/dL 6.4-8.2 [facility] Triglycerides measurementOrd ered By: Mejia Swain on 07-24-2024 Triglyceride [Mass/Vol] 236 mg/dL High [facility] Comment on above: The drugs N-Acetylcy steine and Metamizole may falsely depress this assay.Serum Triglycerides Reference Interval Normal <150 mg/dL Borderline high 150 - 199 mg/dL High 200 - 499 mg/dL Very High > or = 500 mg/dL Order Comment: Order Date: 07/19/23 Order Info: 0184-1 - CBCD Result Comment: The drugs N-Acetylcysteine and Metamizole may falsely depress this assay. Serum Triglycerides Reference Interval Normal <150 mg/dL Borderline high 150 - 199 mg/dL High 200 - 499 mg/dL Very High > or = 500 mg/dL Performed By: #### L 501.9520, L501.9985, L500.4050, L500.4100, L100.0100 #### [facility] [address] [place], [place], [id number] Urinalysis, Completeon 07-24 BACTERIA 0 SEEN Normal None Seen [facility] Comment on above: Order Comment: Order Date: 07/19/23 Order Info: 0184-1 - CBCD Performed By: #### L 501.9520, L501.9985, L500.4050, L500.4100, L100.0100 #### [facility] [address] [place], [place], [id number] EPI,SQUAMOUS 0 SEEN Normal 0-5 [facility] Comment on above: Order Comment: Order Date: 07/19/23 Order Info: 0184-1 - CBCD Performed By: #### L 501.9520, L501.9985, L500.4050, L500.4100, L100.0100 #### [facility] [address] [place], [address] Mucus Ql (Urine sed) 0 SEEN Normal [facility] Comment on above: Order Comment: Order Date: 07/19/23 Order Info: 0184-1 - CBCD Performed By: #### L 501.9520, L501.9985, L500.4050, L500.4100, L100.0100 #### [facility] [address] [place], [address] RBC 0 SEEN Normal 0-5 [facility] Comment on above: Order Comment: Order Date: 07/19/23 Order Info: 0184- - CBCD Performed By: #### L 501.9520, L501.9985, L500.4050, L500.4100, L100.0100 #### [facility] [address] [place], [address] WBC 0 SEEN Normal 0-5 [facility] Comment on above: Order Comment: Order Date: 07/19/23 Order Info: 0184- - CBCD Performed By: #### L 501.9520, L501.9985, L500.4050, L500.4100, L100.0100 #### [facility] [address] [place], [address] Urine clarityOrdered By: Leonel Swain on 07-24-2024 Clarity (U) Clear Clear [facility] Urine color determinationOrd ered By: Mejia Swain on 07-24-2024 Color (U) Yellow Yellow [facility] Urine glucose detectionOrder ed By: Mejia Swain on 07-24-2024 Glucose Ql (U) Normal mg/dl Normal [facility] Urine leukocyte esterase det ection by dipstickOrdered By: Mejia Swain on 07-24-2024 Leukocyte esterase Test strip Ql (U) Negative Negative [facility] Urine pHOrdered By: Mejia resendiz on 07-24-2024 pH (U) 6.0 [pH] 5.0 - 8.0 [facility] Urine sediment bacteria coun t by microscopy (number/high power field)Ordered By: Mejia Swain on 07-24-2024 Bacteria LM.HPF (Urine sed) [#/Area] 0 /[HPF] None Seen [facility] Urine specific gravity measu rementOrdered By: Mejia Swain on 07-24-2024 Specific gravity (U) [Rel density] 1.010 1.002-1.030 [facility] Urine urobilinogen measureme ntOrdered By: Mejia Swain on 07-24-2024 Urobilinogen Ql (U) Normal mg/dl Normal [facility] Very low density lipoprotein (VLDL) cholesterol measurementOrdered By: Mejia Swain on 07-24-2024 Very low density lipoprotein (VLDL) cholesterol measurement 47 mg/dL High 5-40 [facility] White blood cell (WBC) count Ordered By: Mejia Swain on 07-24-2024 WBC (Bld) [#/Vol] 7.4 10*3/uL Normal 4.4-11.0 [facility] Comment on above: Order Comment: Order Date: 07/19/23 Order Info: 0184-1 - CBCD Performed By: #### L 501.9520, L501.9985, L500.4050, L500.4100, L100.0100 #### [facility] [address] [place], [address] White blood cell countOrdere d By: Mejia Swain on 07-24-2024 White blood cell count 0 SEEN /hpf 0-5 [facility] Renal Artery Duplex Ultrasou ndon 02-09-2024 [address] [facility] [address] [place] [address] Renal Artery Duplex Ultrasound 02/09/24 0804 MR#: [id number] Acct: [id number] Name: FANY NAJERA Rep #: [id number] : 1970 53 From: Porter Perrin MD Attending Dr: Dr. Mejia Swain MD Status: R EG CLI Ordering Dr: Mejia Swain MD Date: 02/09/24 Location: CVS Sex: M C Admitted: Reason For Study: HTN Right Renal Artery Left Renal Artery Right renal artery ostium 74/22 Left renal artery ostium 58/19 RSV/EDV. PSV/EDV. Right renal artery proximal 109/29 Left renal artery proximal PSV/EDV PSV/EDV. 75/22 . Right renal artery mid 131/44 Left renal artery mid 120/38 PSV/EDV. PSV/EDV . Right renal artery distal 66/19 Left renal artery distal 101/39 PSV/EDV. PSV/EDV. Right RAR 1.38. Left RAR 1.26. Right Renal Parenchyma Left Renal Parenchyma Upper Pole Medula 32/13 PSV/EDV. Left upper pole medulla 24/9 Right upper pole medulla EDR 0.41 . PSV/EDV . Right upper pole medulla R.I. Left upper pole medulla EDR 0.38 . 0.60 . Left upper pole medulla R.I. 0.62 . Upper Mohsen Cortx 30/13 PSV/EDV. UP Cortex 44/16 PSV/EDV. Right upper pole cortex EDR 0.43 . Left upper pole cortex EDR 0.36 . Right upper pole cortex R.I. 0.57 . Left upper pole cortex R.I. 0.64 . Right lower Pole medulla 39/12 Left lower Pole medulla 27/10 PSV/EDV . PSV/EDV . Right lower pole medulla EDR 0.31 . Left lower pole medulla EDR 0.37 . Right lower pole medulla R.I. Left lower pole medulla R.I. 0.62 . 0.69 . Lower Pole Cortx 23/8 PSV/EDV. Lower Pole Cortex 25/12 PSV/EDV. Left lower pole cortex EDR 0.35 . Right lower pole cortex EDR 0.48 . Left lower pole cortex R.I. 0.64 . Right lower pole cortex R.I. 0.51 . Left Renal Hilar Right Renal Hilar LT Hilar avg 89/33 PSV/EDV . Right Hilar avg 56/17 PSV/EDV. Left hilar acceleration time 40 Right hilar acceleration time 50 m/sec. m/sec. Left Renal Dimensions Right Renal Dimensions Left kidney size 13.37 cm . Right kidney size 14.82 cm . Left cortical dimension 1.61 cm . Right cortical dimension 1.70 cm . Aorta Proximal abdominal aorta 1.92cm x 1.84 cm . Proximal abdominal aorta peak systolic velocity is 95 cm/sec . Distal abdominal aorta 1.76cm x 1.84 cm . Distal abdominal aorta peak systolic velocity is 106 cm/sec . VL/Renal Artery Duplex Ultrasound Interpretation Summary Renal artery velocities are bilaterally normal. Renal-aortic ratios are also bilaterally normal. Acceleration times are normal bilaterally. There is no evidence of hemodynamically significant renal artery stenosis on either side. Renovascular resistance appears to be bilaterally normal . The right cortical dimension is increased. The left cortical dimension is increased. Kidneys are slightly enlarged bilaterally. Ordering Physician: Mejia Swain Referring Physician: Mejia Swain Performed By: Tierra Linda, ARIANNE, RVT 02/12/242125 Date Porter Perrin MD CC: Dr. Mejia Swain MD Date Dictated: 02/09/24803 Date Transcribed: 02/12/242125 Duty Engineer: Signed Normal [facility] Kidney and Bladderon 024 Kidney and Bladder [facility] Imaging Services [address] [place], [place] [address] Kidney and Bladder MR#: [id number] Acct: [id number] Name: FANY NAJERA Rep #: [id number] : 1970 M 53 From: Cristofer alvarez MD PCP: Dr. Mejia Swain MD Status: REG CLI Study: Kidney and Bladder Date of Exam: 01/24/24 Exam# [id number] Ordering Dr: Mejia Swain MD [id number] INDICATION: HTN EXAMINATION: Ultrasound US Kidney(s) complete (eg, kidneys and bladder) TECHNIQUE: Aiken scale and color doppler images were obtained of the kidneys. COMPARISON: No relevant prior comparison study available ____ FINDINGS: RIGHT KIDNEY: 13.5 x 5.8 x 7.2 cm. There is no hydronephrosis. No shadowing calculus, focal lesion or perinephric collection is demonstrated. LEFT KIDNEY: 14.2 x 4.5 x 5.8 cm. There is no hydronephrosis. No shadowing calculus, focal lesion or perinephric collection is demonstrated. URINARY BLADDER: Normally distended without wall thickening. Prevoid bladder volume of 457 mL. Post void residual volume of 66 mL. US/Kidney and Bladder IMPRESSION: Negative renal ultrasound. Electronically Signed: Cristofer Cloud MD at 23:38 EDT Reading Location ID and State: [address] [place] [address] Tel , Service support , CC: Dr. Mejia Swain MD Duty Engineer: Signed Normal [facility] CBC W/Diff, Automatedon 12-25 Absolute Lymph 1.37 X10 3/uL Normal 0.83-4.51 [facility] Comment on above: Order Comment: Order Date: 07/19/23 Order Info: 0184-1 - CBCD Performed By: #### L 501.9520, L501.9942, L500.4050, L500.4100, L100.0100 #### [facility] [address] [place], [address] Absolute Neut 3.3 X10 3/uL Normal 2.0-7.7 [facility] Comment on above: Order Comment: Order Date: 07/19/23 Order Info: 0184-1 - CBCD Performed By: #### L 501.9520, L501.9985, L500.4050, L500.4100, L100.0100 #### [facility] [address] [place], [address] Basophils/100 WBC (Bld) 0.6 % Normal 0-1 [facility] Comment on above: Order Comment: Order Date: 07/19/23 Order Info: 0184-1 - CBCD Performed By: #### L 501.9520, L501.9985, L500.4050, L500.4100, L100.0100 #### [facility] [address] [place], [address] Eosinophils/100 WBC (Bld) 1.3 % Normal 0-5 [facility] Comment on above: Order Comment: Order Date: 07/19/23 Order Info: 0184-1 - CBCD Performed By: #### L 501.9520, L501.9985, L500.4050, L500.4100, L100.0100 #### [facility] [address] [place], [address] Erythrocyte distribution width (RBC) [Ratio] 14.0 % Normal 11.6-14.6 [facility] Comment on above: Order Comment: Order Date: 07/19/23 Order Info: 0184-1 - CBCD Performed By: #### L 501.9520, L501.9985, L500.4050, L500.4100, L100.0100 #### [facility] [address] [place], [address] Hematocrit (Bld) [Volume fraction] 44.4 % Normal 40-54 [facility] Comment on above: Order Comment: Order Date: 07/19/23 Order Info: 0184-1 - CBCD Performed By: #### L 501.9520, L501.9985, L500.4050, L500.4100, L100.0100 #### [facility] [address] [place], [address] Hemoglobin (Bld) [Mass/Vol] 14.9 g/dL Normal 13.0-16.5 [facility] Comment on above: Order Comment: Order Date: 07/19/23 Order Info: 0184- - CBCD Performed By: #### L 501.9520, L501.9985, L500.4050, L500.4100, L100.0100 #### [facility] [address] [place], [address] IG% 0.600 Normal 0.0-0.9 [facility] Comment on above: Order Comment: Order Date: 07/19/23 Order Info: 018- - CBCD Result Comment: IG% - Immature Granulocytes (promyelocytes, myelocytes and metamyelocytes) > 1% indicates that a LEFT SHIFT is Present. Performed By: #### L 501.9520, L501.9985, L500.4050, L500.4100, L100.0100 #### [facility] [address] [place], [address] Lymphocytes/100 WBC (Bld) 25.2 % Normal 19-41 [facility] Comment on above: Order Comment: Order Date: 07/19/23 Order Info: 0184- - CBCD Performed By: #### L 501.9520, L501.9985, L500.4050, L500.4100, L100.0100 #### [facility] [address] [place], [address] MCH (RBC) [Entitic mass] 29.8 pg Normal 27.0-32.0 [facility] Comment on above: Order Comment: Order Date: 07/19/23 Order Info: 0184- - CBCD Performed By: #### L 501.9520, L501.9985, L500.4050, L500.4100, L100.0100 #### [facility] [address] [place], [address] MCHC (RBC) [Mass/Vol] 33.6 g/dL Normal 32-36 [facility] Comment on above: Order Comment: Order Date: 07/19/23 Order Info: 0184-1 - CBCD Performed By: #### L 501.9520, L501.9985, L500.4050, L500.4100, L100.0100 #### [facility] [address] [place], [address] MCV (RBC) [Entitic vol] 88.8 fL Normal 80-94 [facility] Comment on above: Order Comment: Order Date: 07/19/23 Order Info: 0184- - CBCD Performed By: #### L 501.9520, L501.9985, L500.4050, L500.4100, L100.0100 #### [facility] [address] [place], [address] Monocytes/100 WBC (Bld) 12.3 % High 0-10 [facility] Comment on above: Order Comment: Order Date: 07/19/23 Order Info: 0184- - CBCD Performed By: #### L 501.9520, L501.9985, L500.4050, L500.4100, L100.0100 #### [facility] [address] [place], [address] Neutrophils/100 WBC (Bld) 60.0 % Normal 47-70 [facility] Comment on above: Order Comment: Order Date: 07/19/23 Order Info: 0184-1 - CBCD Performed By: #### L 501.9520, L501.9985, L500.4050, L500.4100, L100.0100 #### [facility] [address] [place], [address] Nucleated RBC (Bld) [#/Vol] 0 10*3/uL Normal 0-5 [facility] Comment on above: Order Comment: Order Date: 07/19/23 Order Info: 0184-1 - CBCD Performed By: #### L 501.9520, L501.9985, L500.4050, L500.4100, L100.0100 #### [facility] [address] [place], [address] Platelet mean volume (Bld) [Entitic vol] 10.4 fL Normal 6.2-12.0 [facility] Comment on above: Order Comment: Order Date: 07/19/23 Order Info: 0184-1 - CBCD Performed By: #### L 501.9520, L501.9985, L500.4050, L500.4100, L100.0100 #### [facility] [address] [place], [address] Platelets (Bld) [#/Vol] 282 10*3/uL Normal 150-450 [facility] Comment on above: Order Comment: Order Date: 07/19/23 Order Info: 0184-1 - CBCD Performed By: #### L 501.9520, L501.9985, L500.4050, L500.4100, L100.0100 #### [facility] [address] [place], [address] RBC (Bld) [#/Vol] 5.00 10*6/uL Normal 4.6-6.2 [facility] Comment on above: Order Comment: Order Date: 07/19/23 Order Info: 0184-1 - CBCD Performed By: #### L 501.9520, L501.9985, L500.4050, L500.4100, L100.0100 #### [facility] [address] [place], [address] RDW SD 45.1 fl High 35.1-43.9 [facility] Comment on above: Order Comment: Order Date: 07/19/23 Order Info: 0184-1 - CBCD Performed By: #### L 501.9520, L501.9985, L500.4050, L500.4100, L100.0100 #### [facility] [address] [place], [address] WBC (Bld) [#/Vol] 5.4 10*3/uL Normal 4.4-11.0 [facility] Comment on above: Order Comment: Order Date: 07/19/23 Order Info: 0184-1 - CBCD Performed By: #### L 501.9520, L501.9985, L500.4050, L500.4100, L100.0100 #### [facility] [address] [place], [address] Comprehensive Metabolic Prof [facility] 01-13-2024 Albumin [Mass/Vol] 3.4 g/dL Normal 3.2-5.0 [facility] Comment on above: Order Comment: Order Date: 07/19/23 Order Info: 0786-1 - CMP Order Info: [id number] - LIPID Order Info: 3016-3 - TSH Performed By: #### L 501.9520, L501.9985, L500.4050, L500.4100, L100.0100 #### [facility] [address] [place], [address] Albumin/Globulin [Mass ratio] 0.8 {ratio} Low 0.9-2.4 [facility] Comment on above: Order Comment: Order Date: 07/19/23 Order Info: 0786-1 - CMP Order Info: [id number] - LIPID Order Info: 3016-3 - TSH Performed By: #### L 501.9520, L501.9985, L500.4050, L500.4100, L100.0100 #### [facility] [address] [place], [address] ALK P 75 U/L Normal 45-117 [facility] Comment on above: Order Comment: Order Date: 07/19/23 Order Info: 0786-1 - CMP Order Info: [id number] - LIPID Order Info: 3015-08 - TSH Performed By: #### L 501.9520, L501.9985, L500.4050, L500.4100, L100.0100 #### [facility] [address] [place], [address] ALT [Catalytic activity/Vol] 34 U/L Normal 16-61 [facility] Comment on above: Order Comment: Order Date: 07/19/23 Order Info: 0786- - CMP Order Info: [id number] - LIPID Order Info: [id number] - TSH Performed By: #### L 501.9520, L501.9985, L500.4050, L500.4100, L100.0100 #### [facility] [address] [place], [address] AST [Catalytic activity/Vol] 26 U/L Normal 15-37 [facility] Comment on above: Order Comment: Order Date: 07/19/23 Order Info: 0786- - CMP Order Info: [id number] - LIPID Order Info: [id number] - TSH Performed By: #### L 501.9520, L501.9985, L500.4050, L500.4100, L100.0100 #### [facility] [address] [place], [address] Bilirubin [Mass/Vol] 0.60 mg/dL Normal 0.20-1.00 [facility] Comment on above: Order Comment: Order Date: 07/19/23 Order Info: 0786-1 - CMP Order Info: [id number] - LIPID Order Info: [id number] - TSH Result Comment: For patients on eltrombopag therapy, use of Dimension [place] TBIL is not recommended. Performed By: #### L 501.9520, L501.9985, L500.4050, L500.4100, L100.0100 #### [facility] [address] [place], [address] BUN/CRE 12.0 RATIO Normal 10-20 [facility] Comment on above: Order Comment: Order Date: 07/19/23 Order Info: 0786- - CMP Order Info: - LIPID Order Info: [id number] - TSH Performed By: #### L 501.9520, L501.9985, L500.4050, L500.4100, L100.0100 #### [facility] [address] [place], [address] CA,Total 8.9 mg/dL Normal 8.5-10.1 [facility] Comment on above: Order Comment: Order Date: 07/19/23 Order Info: 785-06 - CMP Order Info: - LIPID Order Info: [id number] - TSH Performed By: #### L 501.9520, L501.9985, L500.4050, L500.4100, L100.0100 #### [facility] [address] [place], [address] Chloride [Moles/Vol] 103 mmol/L Normal 98-107 [facility] Comment on above: Order Comment: Order Date: 07/19/23 Order Info: 0786 - CMP Order Info: [id number] - LIPID Order Info: [id number] - TSH Performed By: #### L 501.9520, L501.9985, L500.4050, L500.4100, L100.0100 #### [facility] [address] [place], [address] CO2 [Moles/Vol] 29.0 mmol/L Normal 21.0-32.0 [facility] Comment on above: Order Comment: Order Date: 07/19/23 Order Info: 0786 - CMP Order Info: - LIPID Order Info: [id number] - TSH Performed By: #### L 501.9520, L501.9985, L500.4050, L500.4100, L100.0100 #### [facility] [address] [place], [address] Creatinine [Mass/Vol] 1.00 mg/dL Normal 0.70-1.30 [facility] Comment on above: Order Comment: Order Date: 07/19/23 Order Info: 0786-1 - CMP Order Info: [id number] - LIPID Order Info: 6-3 - TSH Result Comment: The validity of the calculated GFR GFRAA in patients over 70 years has not been determined. Clinical correlation is essential. Performed By: #### L 501.9520, L501.9985, L500.4050, L500.4100, L100.0100 #### [facility] [address] [place], [address] EST GFR - AA 100 mL/min Normal >60 [facility] Comment on above: Order Comment: Order Date: 07/19/23 Order Info: 0786- - CMP Order Info: [id number] - LIPID Order Info: 6-3 - TSH Result Comment: Afri can Cymraes GFR Calc Performed By: #### L 501.9520, L501.9985, L500.4050, L500.4100, L100.0100 #### [facility] [address] [place], [address] GAP 8 Normal 5-15 [facility] Comment on above: Order Comment: Order Date: 07/19/23 Order Info: 0786-1 - CMP Order Info: [id number] - LIPID Order Info: 6-3 - TSH Performed By: #### L 501.9520, L501.9985, L500.4050, L500.4100, L100.0100 #### [facility] [address] [place], [address] GFR/1.73 sq M.predicted among non-blacks MDRD (S/P/Bld) [Vol rate/Area] 83 mL/min/{1.73_m2} Normal >60 [facility] Comment on above: Order Comment: Order Date: 07/19/23 Order Info: 785- - CMP Order Info: - LIPID Order Info: [id number] - TSH Result Comment: Non- GFR Calc Performed By: #### L 501.9520, L501.9985, L500.4050, L500.4100, L100.0100 #### [facility] [address] [place], [address] Globulin (S) [Mass/Vol] 4.0 g/dL Normal 2.2-4.2 [facility] Comment on above: Order Comment: Order Date: 07/19/23 Order Info: [id number] - CMP Order Info: - LIPID Order Info: [id number] - TSH Performed By: #### L 501.9520, L501.9985, L500.4050, L500.4100, L100.0100 #### [facility] [address] [place], [address] Glucose [Mass/Vol] 121 mg/dL High 74-106 [facility] Comment on above: Order Comment: Order Date: 07/19/23 Order Info: [id number] - CMP Order Info: - LIPID Order Info: [id number] - TSH Result Comment: Fast ing Glucose result from 100 to 125 mg/dL suggests IMPAIRED HOMEOSTASIS per A.D.A. criteria. Performed By: #### L 501.9520, L501.9985, L500.4050, L500.4100, L100.0100 #### [facility] [address] [place], [address] Potassium [Moles/Vol] 3.8 mmol/L Normal 3.5-5.1 [facility] Comment on above: Order Comment: Order Date: 07/19/23 Order Info: 07 - CMP Order Info: - LIPID Order Info: [id number] - TSH Performed By: #### L 501.9520, L501.9985, L500.4050, L500.4100, L100.0100 #### [facility] [address] [place], [address] Sodium [Moles/Vol] 140 mmol/L Normal 136-145 [facility] Comment on above: Order Comment: Order Date: 07/19/23 Order Info: 0786-1 - CMP Order Info: [id number] - LIPID Order Info: 3016-3 - TSH Performed By: #### L 501.9520, L501.9985, L500.4050, L500.4100, L100.0100 #### [facility] [address] [place], [address] T PROT 7.4 g/dL Normal 6.4-8.2 [facility] Comment on above: Order Comment: Order Date: 07/19/23 Order Info: 0786-1 - CMP Order Info: [id number] - LIPID Order Info: 3016-3 - TSH Performed By: #### L 501.9520, L501.9985, L500.4050, L500.4100, L100.0100 #### [facility] [address] [place], [address] Urea nitrogen [Mass/Vol] 12 mg/dL Normal 7-18 [facility] Comment on above: Order Comment: Order Date: 07/19/23 Order Info: 0786-1 - CMP Order Info: [id number] - LIPID Order Info: 3016-3 - TSH Performed By: #### L 501.9520, L501.9985, L500.4050, L500.4100, L100.0100 #### [facility] [address] [place], [address] Hemoglobin A1con 01-13-2024 HbA1c (Bld) [Mass fraction] 5.5 % Normal 3.8-5.6 [facility] Comment on above: Order Comment: Order Date: 07/19/23 Order Info: [id number] - A1C Result Comment: Norm al < 5.7 % Prediabetic 5.7 - 6.4 % Diabetic >or= 6.5 % Please note range changes. Performed By: #### L 501.9520, L501.9985, L500.4050, L500.4100, L100.0100 #### [facility] [address] [place], [address] Lipid Profileon 01-13-2024 Cholesterol [Mass/Vol] 192 mg/dL Normal [address] [facility] [facility] Comment on above: Order Comment: Order Date: 07/19/23 Order Info: [id number] - CMP Order Info: [id number] - LIPID Order Info: [id number] - TSH Result Comment: <200 mg/dL Desirable 200-240 mg/dL Borderline >240 mg/dL High Risk Performed By: #### L [id number], L501.9985, L500.4050, L500.4100, L100.0100 #### [facility] [address] [place], [address] Cholesterol in HDL [Mass/Vol] 30 mg/dL Low [facility] Comment on above: Order Comment: Order Date: 07/19/23 Order Info: 07 - CMP Order Info: [id number] - LIPID Order Info: [id number] - TSH Result Comment: The drugs N-Acetylcysteine and Metamizole may falsely depress this assay. Reference Range HDL <40 mg/dL Low HDL Cholesterol HDL >or= 60 mg/dL High HDL Cholesterol Performed By: #### L [id number], L501.9985, L500.4050, L500.4100, L100.0100 #### [facility] [address] [place], [address] Cholesterol in LDL [Mass/Vol] 128 mg/dL Normal 0-130 [facility] Comment on above: Order Comment: Order Date: 07/19/23 Order Info: [id number] - CMP Order Info: [id number] - LIPID Order Info: [id number] - TSH Performed By: #### L [id number], L501.9985, L500.4050, L500.4100, L100.0100 #### [facility] [address] [place], [address] Cholesterol in VLDL [Mass/Vol] 34 mg/dL Normal 5-40 [facility] Comment on above: Order Comment: Order Date: 07/19/23 Order Info: [id number]- - CMP Order Info: [id number] - LIPID Order Info: 3 - TSH Performed By: #### L [id number], L501.9985, L500.4050, L500.4100, L100.0100 #### [facility] [address] [facility] [place], [address] Triglyceride [Mass/Vol] 171 mg/dL Normal [facility] Comment on above: Order Comment: Order Date: 07/19/23 Order Info: [id number] - CMP Order Info: [id number] - LIPID Order Info: 3 - TSH Result Comment: The drugs N-Acetylcysteine and Metamizole may falsely depress this assay. Serum Triglycerides Reference Interval Normal <150 mg/dL Borderline high 150 - 199 mg/dL High 200 - 499 mg/dL Very High > or = 500 mg/dL Performed By: #### L [id number], L501.9985, L500.4050, L500.4100, L100.0100 #### [facility] [address] [place], [address] Thyroid Stim Hormone (TSH)on 01-13-2024 TSH 0.89 uIU/mL Normal 0.358-3.74 [facility] Comment on above: Order Comment: Order Date: 07/19/23 Order Info: [id number]- - CMP Order Info: [id number] - LIPID Order Info: 3 - TSH Performed By: #### L [id number], L501.9985, L500.4050, L500.4100, L100.0100 #### [facility] [address] [place], [address] Urinalysis, Completeon 01-12 BACTERIA 1+ /hpf Normal None Seen [facility] Comment on above: Order Comment: Order Date: 07/19/23 Order Info: [id number] - CBCD Performed By: #### L [id number], L501.9985, L500.4050, L500.4100, L100.0100 #### [facility] [address] [place], [address] WBC 0-5 SEEN Normal 0-5 [facility] Comment on above: Order Comment: Order Date: 07/19/23 Order Info: [id number] - CBCD Performed By: #### L [id number], L501.9985, L500.4050, L500.4100, L100.0100 #### [facility] [address] [place], [address] EPI,SQUAMOUS 0-5 SEEN Normal 0-5 [facility] Comment on above: Order Comment: Order Date: 07/19/23 Order Info: [id number]- - CBCD Performed By: #### L [id number], L501.9985, L500.4050, L500.4100, L100.0100 #### [facility] [address] [place], [address] Mucus Ql (Urine sed) 2+ /hpf Normal [facility] Comment on above: Order Comment: Order Date: 07/19/23 Order Info: [id number] - CBCD Performed By: #### L [id number], L501.9985, L500.4050, L500.4100, L100.0100 #### [facility] [address] [place], [address] RBC 0 SEEN Normal 0-5 [facility] Comment on above: Order Comment: Order Date: 07/19/23 Order Info: [id number] - CBCD Performed By: #### L [id number], [id number], L500.4050, L500.4100, L100.0100 #### [facility] [address], [address] MRI SHOULDER W/O CONTRAST CHRYSTAL FTon 07-27-2023 MRI SHOULDER W/O CONTRAST LEFT ORIGINAL EXAMINATION: MRI OF THE LEFT SHOULDER WITHOUT CONTRAST07/27/2023 2:13 pm TECHNIQUE: Multiplanar multisequence MRI of the left shoulder was performed without the administration of intravenous contrast. COMPARISON: None. HISTORY: ORDERING SYSTEM PROVIDED HISTORY: Reason for Exam: LT shoulder sprain FINDINGS: MUSCLES AND TENDONS: There is high-grade full-thickness tear of the supraspinatus tendon with at least 2.9 cm of retraction. There is also complete retracted infraspinatus tendon tear. The teres minor tendon is intact. High-grade tear is seen of the superior segmental fibers of the subscapularis. The tendon of the long head of the biceps is poorly evaluated within the rotator cuff interval however it remains within the bicipital groove and is likely intact. Edema is seen of the supraspinatus, infraspinatus and subscapularis musculature without distortion of the normal muscle belly appearance.. No mass is evident at the suprascapular notch, spinoglenoid notch, or the quadrilateral space. OSSEOUS STRUCTURES AND JOINTS: Motion obscures evaluation of the glenoid labrum. Thinning of the glenohumeral cartilage noted. The glenohumeral ligament complexes appear intact.. There is mild to moderate degenerative change of the acromioclavicular joint. No significant downsloping of the acromion. Moderate volume glenohumeral joint effusion. No fracture or dislocation is evident. Bone marrow signal intensity is within normal limits. No visualized marrow replacing osseous lesions. SOFT TISSUES: Fluid signal within the subacromial subdeltoid region likely due to full-thickness tear. IMPRESSION: 1. Complete retracted supraspinatus and infraspinatus tendon tears. There is a high-grade tear of the superior segmental fibers of the subscapularis tendon.. Edema within the supraspinatus, infraspinatus and subscapularis musculature may relate to intramuscular strains/tears. 2. Moderate volume glenohumeral joint effusion. 3. 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 I have personally reviewed the images of this examination, agree with resident's findings and interpretation. Interpreted by: Romain Elizabeth MD Preliminary Report By: lOeg Armijo Electronically signed By Romain Elizabeth MD Dictated Date: 07/27/2023 4:04:20 PM Prelim Date: 07/27/2023 4:51:21 PM Sign Date: 07/27/2023 4:51:21 PM Ordering Provider: DINO Boateng [facility] ([place]) Screening prostate specific antigen (PSA) measurementOrdered By: Mejia Swain on 07-19-2023 Prostate specific Ag IA [Mass/Vol] 1.68 ng/mL 0.00-4.00 [facility] Comment on above: This test was perfor med using the TPSA assay method for theMIT [employer]SH[employer] chemistry system. Values obtained with differentassay methods cannot be used interchangably.When changing PSA assays in the course of monitoring apatient, additional sequential testing should be carriedout to confirm baseline values. Basophil percentageOrdered B y: Mejia Swain on 07-08-2023 Bilirubin [Mass/Vol] 0.50 mg/dL 0.20-1.00 [facility] Comment on above: For patients on eltr ombopag therapy, use of Dimension [place] TBIL is not recommended. Chloride [Moles/Vol] 103 mmol/L 98-107 [facility] Cholesterol [Mass/Vol] 177 mg/dL <200 [facility] Comment on above: <200 mg/dL Desirable 200-240 mg/dL Borderline >240 mg/dL High Risk Glucose [Mass/Vol] 108 mg/dL 74-106 [facility] Comment on above: Fasting Glucose resu lt from 100 to 125 mg/dL suggests IMPAIRED HOMEOSTASIS per A.D.A. criteria. Potassium [Moles/Vol] 3.8 mmol/L 3.5-5.1 [facility] Protein [Mass/Vol] 7.4 g/dL 6.4-8.2 [facility] Sodium [Moles/Vol] 138 mmol/L 136-145 [facility] Triglyceride [Mass/Vol] 123 mg/dL <199 [facility] Comment on above: The drugs N-Acetylcy steine and Metamizole may falsely depress this assay.Serum Triglycerides Reference Interval Normal <150 mg/dL Borderline high 150 - 199 mg/dL High 200 - 499 mg/dL Very High > or = 500 mg/dL Laboratory - Chemistry and C hemistry - challengeOrdered By: Mejia Swain on 07-08-2023 ALP [Catalytic activity/Vol] 68 U/L 45-117 [facility] ALT [Catalytic activity/Vol] 27 U/L 16-61 [facility] CO2 [Moles/Vol] 29.0 mmol/L 21.0-32.0 [facility] Globulin (S) [Mass/Vol] 4.0 g/dL 2.2-4.2 [facility] Urea nitrogen/Creatinine [Mass ratio] 12.1 mg/mg 10-20 [facility] No Panel InformationOrdered By: Mejia Swain on 07-08-2023 Estimated GFR (MDRD) Amer 93 mL/min >60 [facility] Comment on above: GFR Calc Estimated GFR (MDRD) Non-Af Amer 77 mL/min >60 [facility] Comment on above: Non- GFR Calc Serum or plasma albumin michael urement (mass/volume)Ordered By: Mejia Swain on 07-08-2023 Albumin [Mass/Vol] 3.4 g/dL 3.2-5.0 [facility] Serum or plasma albumin/glob ulin mass ratioOrdered By: Mejia Swain on 07-08-2023 Albumin/Globulin [Mass ratio] 0.8 {ratio} 0.9-2.4 [facility] Serum or plasma calcium michael urement (mass/volume)Ordered By: Mejia Swain on 07-08-2023 Calcium [Mass/Vol] 9.0 mg/dL 8.5-10.1 [facility] Serum or plasma cholesterol in HDL measurement (mass/volume)Ordered By: Mejia Swain on 07-08-2023 Cholesterol in HDL [Mass/Vol] 28 mg/dL >40 [facility] Comment on above: The drugs N-Acetylcy steine and Metamizole may falsely depress this assay. Reference Range HDL <40 mg/dL Low HDL Cholesterol HDL >or= 60 mg/dL High HDL Cholesterol Serum or plasma cholesterol in VLDL measurement (mass/volume)Ordered By: Mejia Swain on 07-08-2023 Cholesterol in VLDL [Mass/Vol] 25 mg/dL 5-40 [facility] Serum or plasma creatinine m easurement (mass/volume)Ordered By: Mejia Swain on 07-08-2023 Creatinine [Mass/Vol] 1.07 mg/dL 0.70-1.30 [facility] Comment on above: The validity of the calculated GFR & GFRAA in patients over 70 years has not been determined. Clinical correlation is essential. Serum or plasma low density lipoprotein (LDL) cholesterol measurement (mass/volume)Ordered By: Mejia Swain on 07-08-2023 Cholesterol in LDL [Mass/Vol] 124 mg/dL 0-130 [facility] Serum or plasma urea nitroge n measurement (mass/volume)Ordered By: Mejia Swain on 07-08-2023 Urea nitrogen [Mass/Vol] 13 mg/dL 7-18 [facility] Thin prep Papanicolaou smear with manual screeningOrdered By: Mejia Swain on 07-08-2023 Thin prep Papanicolaou smear with manual screening 12 U/L 15-37 [facility] Thin prep Papanicolaou smear with manual screening 6 5-15 [facility] Whole blood hemoglobin A1c/t otal hemoglobin ratio (mass fraction)Ordered By: Mejia Swain on 07-08-2023 HbA1c (Bld) [Mass fraction] 5.4 % 3.8-5.6 [facility] Comment on above: Normal < 5.7 % Predi abetic 5.7 - 6.4 % Diabetic >or= 6.5 % Please note range changes. Absolute lymphocyte countOrd ered By: Dr. Swain on 07-09-2022 Lymphocytes Auto (Unsp spec) [#/Vol] 1.36 10*3/uL 0.83-4.51 [facility] Basophil percentageOrdered B y: Dr. Swain on 07-09-2022 Basophil percentage 0 SEEN /hpf 0-5 [facility] Basophils/100 WBC (Bld) 0.5 % 0-1 [facility] Bilirubin [Mass/Vol] 0.60 mg/dL 0.20-1.00 [facility] Comment on above: For patients on eltr ombopag therapy, use of Dimension [place] TBIL is not recommended. Chloride [Moles/Vol] 104 mmol/L 98-107 [facility] Cholesterol [Mass/Vol] 181 mg/dL <200 [facility] Comment on above: <200 mg/dL Desirable 200-240 mg/dL Borderline >240 mg/dL High Risk Eosinophils/100 WBC (Bld) 1.2 % 0-5 [facility] Glucose [Mass/Vol] 111 mg/dL 74-106 [facility] Comment on above: Fasting Glucose resu lt from 100 to 125 mg/dL suggests IMPAIRED HOMEOSTASIS per A.D.A. criteria. Neutrophils (Bld) [#/Vol] 3.4 10*3/uL 2.0-7.7 [facility] Neutrophils/100 WBC (Bld) 60.7 % 47-70 [facility] Potassium [Moles/Vol] 3.8 mmol/L 3.5-5.1 [facility] Protein [Mass/Vol] 7.5 g/dL 6.4-8.2 [facility] Sodium [Moles/Vol] 138 mmol/L 136-145 [facility] Triglyceride [Mass/Vol] 142 mg/dL <199 [facility] Comment on above: The drugs N-Acetylcy steine and Metamizole may falsely depress this assay.Serum Triglycerides Reference Interval Normal <150 mg/dL Borderline high 150 - 199 mg/dL High 200 - 499 mg/dL Very High > or = 500 mg/dL WBC (Bld) [#/Vol] 5.6 10*3/uL 4.4-11.0 [facility] Bilirubin Test strip Ql (U)O rdered By: Dr. Swain on 07-09-2022 Bilirubin Ql (U) Negative Negative [facility] Blood erythrocytes count (nu mber/volume)Ordered By: Dr. Swain on 07-09-2022 RBC (Bld) [#/Vol] 5.06 10*6/uL 4.6-6.2 [facility] Blood hemoglobin measurement (mass/volume)Ordered By: Dr. Swain on 07-09-2022 Hemoglobin (Bld) [Mass/Vol] 15.3 g/dL 13.0-16.5 [facility] Blood lymphocytes/100 leukoc ytesOrdered By: Dr. Swain on 07-09-2022 Lymphocytes/100 WBC (Bld) 24.2 % 19-41 [facility] Blood monocytes/100 leukocyt esOrdered By: Dr. Swain on 07-09-2022 Monocytes/100 WBC (Bld) 13.0 % 0-10 [facility] Blood platelet mean volumeOr dered By: Dr. Swain on 07-09-2022 Platelet mean volume (Bld) [Entitic vol] 10.1 fL 6.2-12.0 [facility] Determination of erythrocyte mean corpuscular volume (MCV)Ordered By: Dr. Swain on 07-09-2022 MCV (RBC) [Entitic vol] 90.7 fL 80-94 [facility] Hematocrit Auto (Bld) [Volum e fraction]Ordered By: Dr. Swain on 07-09-2022 Hematocrit (Bld) [Volume fraction] 45.9 % 40-54 [facility] Ketones Test strip Ql (U)Ord ered By: Dr. Swain on 07-09-2022 Ketones Ql (U) Negative Negative [facility] - Chemistry and C hemistry - challengeOrdered By: Dr. Swain on 07-09-2022 ALP [Catalytic activity/Vol] 65 U/L 45-117 [facility] ALT [Catalytic activity/Vol] 33 U/L 16-61 [facility] CO2 [Moles/Vol] 29.0 mmol/L 21.0-32.0 [facility] Globulin (S) [Mass/Vol] 4.1 g/dL 2.2-4.2 [facility] Urea nitrogen/Creatinine [Mass ratio] 11.6 mg/mg 10-20 [facility] - Hematology and Cell countsOrdered By: Dr. Swain on 07-09-2022 Erythrocyte distribution width (RBC) [Entitic vol] 46.2 fL 35.1-43.9 [facility] Erythrocyte distribution width (RBC) [Ratio] 14.1 % 11.6-14.6 [facility] Immature granulocytes/100 WBC (Bld) 0.400 % 0.0-0.9 [facility] Comment on above: IG% - Immature Granu locytes (promyelocytes, myelocytes and metamyelocytes) > 1% indicates that a LEFT SHIFT is Present. MCH (RBC) [Entitic mass] 30.2 pg 27.0-32.0 [facility] Nucleated RBC/100 WBC (Bld) [Ratio] 0 % 0-5 [facility] MCHC Auto (RBC) [Mass/Vol]Or dered By: Dr. Swain on 07-09-2022 MCHC (RBC) [Mass/Vol] 33.3 g/dL 32-36 [facility] Mucus LM Ql (Urine sed)Order ed By: Dr. Swain on 07-09-2022 Mucus Ql (Urine sed) 0 SEEN /hpf [facility] Nitrite Test strip Ql (U)Ord ered By: Dr. Swain on 07-09-2022 Nitrite Ql (U) Negative Negative [facility] No Panel InformationOrdered By: Dr. Swain on 07-09-2022 Estimated GFR (MDRD) Amer 107 mL/min >60 [facility] Comment on above: GFR Calc Estimated GFR (MDRD) Non-Af Amer 89 mL/min >60 [facility] Comment on above: Non- GFR Calc Thyroid Stimulating Hormone (TSH) 0.76 uIU/mL 0.358-3.74 [facility] Platelets bldOrdered By: Dr. Swain on 07-09-2022 Platelets (Bld) [#/Vol] 338 10*3/uL 150-450 [facility] Protein Test strip Ql (U)Ord ered By: Dr. Swain on 07-09-2022 Protein Ql (U) 15 mg/dl Negative [facility] Serum or plasma albumin michael urement (mass/volume)Ordered By: Dr. Swain on 07-09-2022 Albumin [Mass/Vol] 3.4 g/dL 3.2-5.0 [facility] Serum or plasma albumin/glob ulin mass ratioOrdered By: Dr. Swain on 07-09-2022 Albumin/Globulin [Mass ratio] 0.8 {ratio} 0.9-2.4 [facility] Serum or plasma calcium michale urement (mass/volume)Ordered By: Dr. Swain on 07-09-2022 Calcium [Mass/Vol] 8.4 mg/dL 8.5-10.1 [facility] Serum or plasma cholesterol in HDL measurement (mass/volume)Ordered By: Dr. Swain on 07-09-2022 Cholesterol in HDL [Mass/Vol] 29 mg/dL >40 [facility] Comment on above: The drugs N-Acetylcy steine and Metamizole may falsely depress this assay. Reference Range HDL <40 mg/dL Low HDL Cholesterol HDL >or= 60 mg/dL High HDL Cholesterol Serum or plasma cholesterol in VLDL measurement (mass/volume)Ordered By: Dr. Swain on 07-09-2022 Cholesterol in VLDL [Mass/Vol] 28 mg/dL 5-40 [facility] Serum or plasma creatinine m easurement (mass/volume)Ordered By: Dr. Swain on 07-09-2022 Creatinine [Mass/Vol] 0.95 mg/dL 0.70-1.30 [facility] Comment on above: The validity of the calculated GFR & GFRAA in patients over 70 years has not been determined. Clinical correlation is essential. Serum or plasma low density lipoprotein (LDL) cholesterol measurement (mass/volume)Ordered By: Dr. Swain on 07-09-2022 Cholesterol in LDL [Mass/Vol] 124 mg/dL 0-130 [facility] Serum or plasma urea nitroge n measurement (mass/volume)Ordered By: Dr. Swain on 07-09-2022 Urea nitrogen [Mass/Vol] 11 mg/dL 7-18 [facility] Squamous epithelial cells de tection in urine sediment by light microscopyOrdered By: Dr. Swain on 07-09-2022 Epithelial cells.squamous LM Ql (Urine sed) 0 SEEN /hpf 0-5 [facility] Thin prep Papanicolaou smear with manual screeningOrdered By: Dr. Swain on 07-09-2022 Thin prep Papanicolaou smear with manual screening 15 U/L 15-37 [facility] Thin prep Papanicolaou smear with manual screening 5 5-15 [facility] Urine blood detectionOrdered By: Dr. Swain on 07-09-2022 RBC Ql (U) Negative Negative [facility] RBC Ql (U) 0 SEEN /hpf 0-5 [facility] Urine clarityOrdered By: Dr. Swain on 07-09-2022 Clarity (U) Clear Clear [facility] Urine color determinationOrd ered By: Dr. Swain on 07-09-2022 Color (U) Yellow Yellow [facility] Urine glucose detectionOrder ed By: Dr. Swain on 07-09-2022 Glucose Ql (U) Normal mg/dl Normal [facility] Urine leukocyte esterase det ection by dipstickOrdered By: Dr. Swain on 07-09-2022 Leukocyte esterase Test strip Ql (U) Negative Negative [facility] Urine pHOrdered By: Dr. Gricelda aleman on 07-09-2022 pH (U) 6.5 [pH] 5.0 - 8.0 [facility] Urine sediment bacteria coun t by microscopy (number/high power field)Ordered By: Dr. Swain on 07-09-2022 Bacteria LM.HPF (Urine sed) [#/Area] 0 /[HPF] None Seen [facility] Urine specific gravity measu rementOrdered By: Dr. Swain on 07-09-2022 Specific gravity (U) [Rel density] 1.015 1.002-1.030 [facility] Urobilinogen Auto test strip Ql (U)Ordered By: Dr. Swain on 07-09-2022 Urobilinogen Ql (U) Normal mg/dl Normal [facility] Whole blood hemoglobin A1c/t otal hemoglobin ratio (mass fraction)Ordered By: Dr. Swain on 07-09-2022 HbA1c (Bld) [Mass fraction] 5.7 % 3.8-5.6 [facility] Comment on above: Normal < 5.7 % Predi abetic 5.7 - 6.4 % Diabetic >or= 6.5 % Please note range changes. LABORATORYOrdered By: Britany Cook on 06-20-2022 FLUAV RNA LUIS ANTONIO+probe Ql (Upper resp) Positive *ABN* (06/20/22 4:22 PM) Invalid Interpretation Code Negative AO Auto Urine SS FLUBV RNA LUIS ANTONIO+probe Ql (Upper resp) Negative (06/20/22 4:22 PM) Invalid Interpretation Code Negative AO Auto Urine SS RSV RNA LUIS ANTONIO+probe Ql (Upper resp) Negative (06/20/22 4:22 PM) Invalid Interpretation Code Negative AO Auto Urine SS SARS-CoV-2 (COVID-19) RNA LUIS ANTONIO+probe Ql (Resp) Negative results do not preclude SARS-CoV-2 infection and should not be used as the sole basis for patient management decisions. Negative results must be combined with clinical observations, patient history, and epidemiological information.There is a risk of false negative values resulting from improperly collected, transported, or handled specimens.There is a risk of false negative values due to the presence of sequence variants in the pathogen targets of the assay, procedural errors, amplification inhibitors in specimens, or inadequate numbers of organisms for amplification.nuMVC SARS-CoV-2 Assay is a Real-Time reverse-transcriptas e polymerase chain reaction (RT-PCR) based qualitative in vitro diagnostic test intended for the qualitative detection of nucleic acid from the SARS-CoV-2 in nasopharyngeal swab specimens collected from individuals suspected of COVID-19 by their healthcare provider. Testing is limited to laboratories certified under the Clinical Laboratory Improvement Amendments of 1988 (CLIA), 42 U.S.C. 263a, to perform moderate and high complexity tests. Invalid Interpretation Code AO Auto Urine SS Absolute lymphocyte counton 03-04-2022 Lymphocytes Auto (Unsp spec) [#/Vol] 1.26 10*3/uL 0.83-4.51 [facility] Work Phone: Basophil percentageon 2021 Basophils/100 WBC (Bld) 0.6 % 0-1 [facility] Work Phone: Bilirubin [Mass/Vol] 0.40 mg/dL 0.20-1.00 [facility] Work Phone: Comment on above: For patients on eltr ombopag therapy, use of Dimension [place] TBIL is not recommended. Chloride [Moles/Vol] 103 mmol/L 98-107 [facility] Work Phone: Cholesterol [Mass/Vol] 176 mg/dL <200 [facility] Work Phone: Comment on above: <200 mg/dL Desirable 200-240 mg/dL Borderline >240 mg/dL High Risk Eosinophils/100 WBC (Bld) 1.5 % 0-5 [facility] Work Phone: Glucose [Mass/Vol] 105 mg/dL 74-106 [facility] Work Phone: Comment on above: Fasting Glucose resu lt from 100 to 125 mg/dL suggests IMPAIRED HOMEOSTASIS per A.D.A. criteria. Neutrophils (Bld) [#/Vol] 4.6 10*3/uL 2.0-7.7 [facility] Work Phone: Neutrophils/100 WBC (Bld) 68.9 % 47-70 [facility] Work Phone: Potassium [Moles/Vol] 3.4 mmol/L 3.5-5.1 [facility] Work Phone: Protein [Mass/Vol] 7.9 g/dL 6.4-8.2 [facility] Work Phone: Sodium [Moles/Vol] 140 mmol/L 136-145 [facility] Work Phone: Triglyceride [Mass/Vol] 186 mg/dL <199 [facility] Work Phone: Comment on above: The drugs N-Acetylcy steine and Metamizole may falsely depress this assay.Serum Triglycerides Reference Interval Normal <150 mg/dL Borderline high 150 - 199 mg/dL High 200 - 499 mg/dL Very High > or = 500 mg/dL WBC (Bld) [#/Vol] 6.7 10*3/uL 4.4-11.0 [facility] Work Phone: Blood erythrocytes count (nu mber/volume)on 03-04-2022 RBC (Bld) [#/Vol] 5.13 10*6/uL 4.6-6.2 [facility] Work Phone: Blood hemoglobin measurement (mass/volume)on 03-04-2022 Hemoglobin (Bld) [Mass/Vol] 15.8 g/dL 13.0-16.5 [facility] Work Phone: Blood lymphocytes/100 leukoc yteson 03-04-2022 Lymphocytes/100 WBC (Bld) 18.7 % 19-41 [facility] Work Phone: Blood monocytes/100 leukocyt eson 03-04-2022 Monocytes/100 WBC (Bld) 9.9 % 0-10 [facility] Work Phone: Blood platelet mean volumeon 03-04-2022 Platelet mean volume (Bld) [Entitic vol] 10.4 fL 6.2-12.0 [facility] Work Phone: Determination of erythrocyte mean corpuscular volume (MCV)on 03-04-2022 MCV (RBC) [Entitic vol] 91.0 fL 80-94 [facility] Work Phone: Hematocrit Auto (Bld) [Volum e fraction]on 03-04-2022 Hematocrit (Bld) [Volume fraction] 46.7 % 40-54 [facility] Work Phone: Laboratory - Chemistry and C hemistry - challengeon 03-04-2022 ALP [Catalytic activity/Vol] 72 U/L 45-117 [facility] Work Phone: ALT [Catalytic activity/Vol] 43 U/L 16-61 [facility] Work Phone: CO2 [Moles/Vol] 30.0 mmol/L 21.0-32.0 [facility] Work Phone: Globulin (S) [Mass/Vol] 4.3 g/dL 2.2-4.2 [facility] Work Phone: Urea nitrogen/Creatinine [Mass ratio] 13.7 mg/mg 10-[address] [facility] [facility] Work Phone: Laboratory - Hematology and Cell countson 03-04-2022 Erythrocyte distribution width (RBC) [Entitic vol] 45.3 fL 35.1-43.9 [facility] Work Phone: Erythrocyte distribution width (RBC) [Ratio] 13.6 % 11.6-14.6 [facility] Work Phone: Immature granulocytes/100 WBC (Bld) 0.400 % 0.0-0.9 [facility] Work Phone: Comment on above: IG% - Immature Granu locytes (promyelocytes, myelocytes and metamyelocytes) > 1% indicates that a LEFT SHIFT is Present. MCH (RBC) [Entitic mass] 30.8 pg 27.0-32.0 [facility] Work Phone: Nucleated RBC/100 WBC (Bld) [Ratio] 0 % 0-5 [facility] Work Phone: MCHC Auto (RBC) [Mass/Vol]on 03-04-2022 MCHC (RBC) [Mass/Vol] 33.8 g/dL 32-36 [facility] Work Phone: No Panel Informationon 03-04 Estimated GFR (MDRD) Amer 99 mL/min >60 [facility] Work Phone: Comment on above: GFR Calc Estimated GFR (MDRD) Non-Af Amer 82 mL/min >60 [facility] Work Phone: Comment on above: Non- GFR Calc Thyroid Stimulating Hormone (TSH) 1.12 uIU/mL 0.358-3.74 [facility] Work Phone: Platelets bldon 03-04-2022 Platelets (Bld) [#/Vol] 334 10*3/uL 150-450 [facility] Work Phone: Serum or plasma albumin michael urement (mass/volume)on 03-04-2022 Albumin [Mass/Vol] 3.6 g/dL 3.2-5.0 [facility] Work Phone: Serum or plasma albumin/glob ulin mass ratioon 03-04-2022 Albumin/Globulin [Mass ratio] 0.8 {ratio} 0.9-2.4 [facility] Work Phone: Serum or plasma calcium michael urement (mass/volume)on 03-04-2022 Calcium [Mass/Vol] 8.6 mg/dL 8.5-10.1 [facility] Work Phone: Serum or plasma cholesterol in HDL measurement (mass/volume)on 03-04-2022 Cholesterol in HDL [Mass/Vol] 27 mg/dL >40 [facility] Work Phone: Comment on above: The drugs N-Acetylcy steine and Metamizole may falsely depress this assay. Reference Range HDL <40 mg/dL Low HDL Cholesterol HDL >or= 60 mg/dL High HDL Cholesterol Serum or plasma cholesterol in VLDL measurement (mass/volume)on 03-04-2022 Cholesterol in VLDL [Mass/Vol] 37 mg/dL 5-40 [facility] Work Phone: Serum or plasma creatinine m easurement (mass/volume)on 03-04-2022 Creatinine [Mass/Vol] 1.02 mg/dL 0.70-1.30 [facility] Work Phone: Comment on above: The validity of the calculated GFR & GFRAA in patients over 70 years has not been determined. Clinical correlation is essential. Serum or plasma low density lipoprotein (LDL) cholesterol measurement (mass/volume)on 03-04-2022 Cholesterol in LDL [Mass/Vol] 112 mg/dL 0-130 [facility] Work Phone: Serum or plasma urea nitroge n measurement (mass/volume)on 03-04-2022 Urea nitrogen [Mass/Vol] 14 mg/dL 7-18 [facility] Work Phone: Thin prep Papanicolaou smear with manual screeningon 03-04-2022 Thin prep Papanicolaou smear with manual screening 19 U/L 15-37 [facility] Work Phone: Thin prep Papanicolaou smear with manual screening 7 5-15 [facility] Work Phone: Whole blood hemoglobin A1c/t otal hemoglobin ratio (mass fraction)on 03-04-2022 HbA1c (Bld) [Mass fraction] 5.8 % 3.8-5.6 [facility] Work Phone: Comment on above: Normal < 5.7 % Predi abetic 5.7 - 6.4 % Diabetic >or= 6.5 % Please note range changes. Vital Signs Date Time Vital Sign Value Performing Clinician Sumit lou 11-30-2022 04:35-0400 Body height 172.[address] LAMBERT STOVALL MD [facility] 11-30-2022 04:35-0400 Body temperature 98.6 [degF] DR LAMBERT STOVALL MD [facility] 11-30-2022 04:35-0400 Body weight 133.[address] LAMBERT STOVALL MD [facility] 11-30-2022 04:35-0400 Diastolic Blood Pressure Non-Invasive [address] LAMBERT STOVALL MD [facility] 11-30-2022 04:35-0400 Heart rate 83 /min DR LAMBERT STOVALL MD [facility] 11-30-2022 04:35-0400 Respiratory rate 18 /min DR LAMBERT STOVALL MD [facility] 11-30-2022 04:35-0400 Systolic Blood Pressure Non-Invasive [address] LAMBERT STOVALL MD [facility] 06-20-2022 15:12-0500 Body height 172.7 cm TORREY KAMARA MD [facility] 06-20-2022 15:12-0500 Body temperature 98.78 [degF] TORREY KAMARA MD [facility] 06-20-2022 15:12-0500 Body weight 136.4 kg TORREY KAMARA MD [facility] 06-20-2022 15:12-0500 Diastolic Blood Pressure Non-Invasive 86 1 TORREY KAMARA MD [facility] 06-20-2022 15:12-0500 Heart rate 90 /min TORREY KAMARA MD [facility] 06-20-2022 15:12-0500 Respiratory rate 20 /min TORREY KAMARA MD [facility] 06-20-2022 15:12-0500 Systolic Blood Pressure Non-Invasive 148 1 TORREY KAMARA MD [facility] 01-26-2022 19:17-0400 Diastolic blood pressure 88 mm[Hg] ROCIO ARANA MD [facility] 01-26-2022 19:17-0400 Heart rate 85 /min ROCIO ARANA MD [facility] 01-26-2022 19:17-0400 Respiratory rate 18 /min ROCIO ARANA MD [facility] 01-26-2022 19:17-0400 Systolic blood pressure 143 mm[Hg] ROCIO ARANA MD [facility] 01-26-2022 17:31-0400 Body temperature 98.42 [degF] ROCIO ARANA MD [facility] 01-26-2022 17:31-0400 Diastolic blood pressure 89 mm[Hg] ROCIO ARANA MD [facility] 01-26-2022 17:31-0400 Heart rate 89 /min ROCIO ARANA MD [facility] 01-26-2022 17:31-0400 Respiratory rate 20 /min ROCIO ARANA MD [facility] 01-26-2022 17:31-0400 Systolic blood pressure 146 mm[Hg] ROCIO ARANA MD [facility] Encounters Encounter Date Encounter Type Care Provider Facility Start: 11-04-2024 End: 11-04-[address] Mejia Swain MD Work Phone: [facility] Work Phone: Start: 11-04-2024 End: 11-04-[address] Mejia Swain MD -Laboratory Work Phone: Start: 11-04-2024 End: 11-04-2024 ambulatory Mejia Swain Facility:[facility] Start: 07-24-2024 End: 07-24-[address] Mejia Swain MD -Laboratory [facility] Start: 07-24-2024 End: 07-24-2024 ambulatory Mejia Swain Facility:[facility] Start: 02-09-2024 End: 02-09-2024 ambulatory [facility] Susanne Swain Facility:[facility] Start: 01-24-2024 End: 01-24-2024 ambulatory Mejia Swain Facility:[facility] Start: 01-13-2024 End: 01-13-2024 ambulatory [facility] Susanne Swain Facility:[facility] Start: 07-27-2023 End: 07-27-2023 ambulatory PATIENT UNSURE PHYSICIAN Facility:B Start: 07-27-2023 End: 07-27-2023 Patient encounter procedure DINO CHAIDEZ MD [facility] Start: 07-19-2023 End: 07-19-[address] [facility] Work Phone: Start: 07-19-2023 End: 07-19-2023 Patient encounter procedure [facility] Start: 07-08-2023 End: 07-08-[address] [facility] Work Phone: Start: 07-08-2023 End: 07-08-2023 Patient encounter procedure [facility] Work Phone: Start: 11-30-2022 End: 11-30-2022 Emergency department patient visit DR LAMBERT STOVALL MD [facility] Start: 07-09-2022 End: 07-09-[address] [facility] Work Phone: Start: 07-09-2022 End: 07-09-2022 Patient encounter procedure [facility] Start: 06-20-2022 End: 06-20-2022 Emergency department patient visit TORREY KAMARA MD [facility] Start: 03-04-2022 End: 03-04-[address] [facility] Work Phone: Start: 03-04-2022 End: 03-04-2022 Patient encounter procedure [facility] Start: 01-26-2022 End: 01-26-2022 Emergency department patient visit ROCIO ARANA MD [facility] Procedures Date Procedure Procedure Detail Performing Clinician Start: 11-04-2024 Prostate specific an tigen measurement Dr. Mejia Swain MD Work Phone: Comment on above: This test was perfor med using the [employer] tPSA method. Measured values of a patient sample can vary depending on the testing procedure used. PSA values determined on patient samples by different testing procedures cannot be used interchangeably. If there is a change in PSA assays while monitoring therapy, sequential testing should be performed to confirm baseline values. Start: 07-24-2024 Measurement of renal function Dr. Mejia Swain MD Work Phone: Comment on above: GFR Calc Start: 07-24-2024 Urnls dip stick/tabl et reagent auto microscopy Dr. Mejia Swain MD Work Phone: Tonsillectomy ROCIO ARANA MD Payers Date Payer Category Payer Unknown [id number] 2024 Self-pay [id number] 2023 Unknown [id number] 2020 Unknown [id number] 2014 Unknown [id number] 1970 Unknown [id number] [id number] [id number] Unknown [id number] 2.16.8 [id number] Unknown [id number] 2.16.8 [id number] Unknown [id number] 2.16.8 [id number] Unknown [id number] 2.16.8 [id number] Unknown [id number] 2.16.8 [id number] Social History Date Type Detail Facility Tobacco Tobacco Use: 1 c an of chew can last a day or day and a half. Type: Oral. [facility] Tobacco smoking status Never smo ked tobacco (finding) [facility] Start: 1970 Sex Assigned At Male A [facility] Start: 09-08-2015 End: 09-08-2015 Tobacco smoking status NHIS Unknown if ever smoked [facility] Start: 09-08-2015 Chew [facility] Start: 09-08-2015 Tobacco smoking stat us NHIS Ex-smoker (finding) [facility] Functional Status Date Assessment Result Facility 11-30-2022 Functional Status Standard Safet y ID band on, Allergy Band on, Call device within reach, Bed in low position, Wheels locked, Upper/Half-Length side-rails up, personal items within reach [facility] 06-20-2022 Functional Status Up ad david [facility] 06-20-2022 Functional Status Standard Safet y ID band on, Call device within reach, Bed in low position, Wheels locked [facility] 01-26-2022 Functional Status Standard Safet y ID band on, Call device within reach, Bed in low position, Wheels locked, Upper/Half-Length side-rails up, Visitor at bedside, Safety level maintained [facility] Mental Status Date Assessment Result Facility 11-30-2022 Mental Status Orientation Oriented x 4 [facility] 06-20-2022 Mental Status Orientation Oriented x 4 [facility] 06-20-2022 Mental Status [facility] 01-26-2022 Mental Status Orientation Oriented x 4 [facility] Clinical Notes 01-26-2022 to 07-27-2023 Note Date & Type Note Facility 07-27-2023 Note ORIGINAL EXAMINATION: MRI OF THE LEFT SHOULDER WITHOUT CONTRAST07/27/2023 2:13 pm TECHNIQUE: Multiplanar multisequence MRI of the left shoulder was performed without the administration of intravenous contrast. COMPARISON: None. HISTORY: ORDERING SYSTEM PROVIDED HISTORY: Reason for Exam: LT shoulder sprain FINDINGS: MUSCLES AND TENDONS: There is high-grade full-thickness tear of the supraspinatus tendon with at least 2.9 cm of retraction. There is also complete retracted infraspinatus tendon tear. The teres minor tendon is intact. High-grade tear is seen of the superior segmental fibers of the subscapularis. The tendon of the long head of the biceps is poorly evaluated within the rotator cuff interval however it remains within the bicipital groove and is likely intact. Edema is seen of the supraspinatus, infraspinatus and subscapularis musculature without distortion of the normal muscle belly appearance.. No mass is evident at the suprascapular notch, spinoglenoid notch, or the quadrilateral space. OSSEOUS STRUCTURES AND JOINTS: Motion obscures evaluation of the glenoid labrum. Thinning of the glenohumeral cartilage noted. The glenohumeral ligament complexes appear intact.. There is mild to moderate degenerative change of the acromioclavicular joint. No significant downsloping of the acromion. Moderate volume glenohumeral joint effusion. No fracture or dislocation is evident. Bone marrow signal intensity is within normal limits. No visualized marrow replacing osseous lesions. SOFT TISSUES: Fluid signal within the subacromial subdeltoid region likely due to full-thickness tear. IMPRESSION: 1. Complete retracted supraspinatus and infraspinatus tendon tears. There is a high-grade tear of the superior segmental fibers of the subscapularis tendon.. Edema within the supraspinatus, infraspinatus and subscapularis musculature may relate to intramuscular strains/tears. 2. Moderate volume glenohumeral joint effusion. 3. 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 I have personally reviewed the images of this examination, agree with resident's findings and interpretation. Interpreted by: Romain Elizabeth MD Preliminary Report By: Oleg Armijo Electronically signed By Romain Elizabeth MD Dictated Date: 07/27/2023 4:04:20 PM Prelim Date: 07/27/2023 4:51:21 PM Sign Date: 07/27/2023 4:51:21 PM Ordering Provider: [facility] 11-30-2022 Hospital Discharge instructions Patient Education 11/30/2022 [...] effective. Custom-made inserts can be provided by material specialist, physical therapist, or orthopedist. Premade or [...] 2 hours as needed. You may use jwkx-hup-jjopyfk pain medicine to control pain, unless another [...] swelling Redness or warmth with increasing pain [id number] [employer]. [address] [place] [address]. All rights reserved. This information is not intended as a substitute for professional medical care. Always follow your healthcare professional's instructions. Follow Up Care 11/30/2022 04:09:57 With:VIMAL HARTMANN Address: [address] [place] [address], [address] [place] [address]- Business (1) When:2-4 days Comments:Return to ED if symptoms worsen [facility] 11-30-2022 Note Discharge Instructions Thank you for allowing [facility] to assist you with your healthcare needs. [...] Return to ED if symptoms worsen Where: [address] [place] [address], [address] [facility] [place], [place] [id number]- Business (1) Allergies [facility] medication for hypertension (non-codified) Medications Please ask your primary doctor or pharmacist before taking any other medication not listed, including over the counter drugs, herbal medications, vitamins and or supplements as they may interact with your home medications. What How Much When Why Instructions Last Dose New acetaminophen-hydrocodone ([place] 325- 5 mg oral tablet) 1 tab(s) [...] effective. Custom-made inserts can be provided by material specialist, physical therapist, or orthopedist. Premade or [...] 2 hours as needed. You may use gmkh-wxk-tmspwgd pain medicine to control pain, unless another [...] swelling Redness or warmth with increasing pain [phone] [employer]. [address] [place] [address]. All rights reserved. This information is not intended as a substitute for professional medical care. Always follow your healthcare professional's instructions. Additional Information VACCINATE! IT SAVES LIVES! Members of the community who have not yet received the COVID-19 vaccine and would like to receive it can visit one of [facility] vaccine clinics. There are many vaccine clinic locations within the [facility]. For locations and available times, please visit [email or web address] It is important to note that some COVID mobile vaccine clinics are held outdoors and may be canceled in rainy or stormy conditions. To learn more about pediatric vaccinations (ages 5-11), we invite you to visit the [facility] webpage. [email or web address]/pag [email or web address]-Eihga-Seutpwmdlgm-[email or web address] qz-Acmpf-Mfynzqgjw.html To learn more about the COVID-19 vaccine, we invite you to visit the CDC website for a list of frequently asked questions. https://www.cdc.gov/coronavirus/-ncov/vaccines/faq.html [facility] Patient Portal Access Instructions: Stay connected with your healthcare team and access your personal medical information anytime with the [facility] Patient Portal. If you would like a full copy of your medical records please contact the [facility] Medical Records Department Monday through Monday between 8a.m. and 4:30p.m. Please follow the directions below to access the portal: 1.Access the email account you provided upon registration to the [facility].2.Look for an invitation email from [facility].3.Open the email and access the invitation link: Accept Invitation to [facility]4.Fill in the required york to create your account. Sign into www.[employer] with your username and password that you [...] you will allow to register on the [facility] Patient Portal for access to your information. You can also access the [facility] Patient Portal on the [employer] wendy. Simply click on Health Records under Health Data and then click on the [employer] logo. HOW TO SAFELY DISPOSE OF PRESCRIPTION [...] Call your local pharmacy or go to http://bit.ly/6C0Cb9i to find one close to you.3.Make use of household items: Use cat litter or old coffee grounds to dispose medications if other options are not available. Mix your drugs with these household products, seal them in an airtight container and throw it into the garbage. Call [facility]: [phone] to be sure your drugs can be [...] aware that I should contact my doctor. Patient/Machine Packer Signature: Date/Time: Relationship to Patient: ___ Witness Name/Signature: Date/Time: [facility] 11-30-2022 Note ORIGINAL EXAMINATION: THREE XRAY [...] Sign Date: 11/30/2022 4:57:49 AM [facility]ing [facility] Note ORIGINAL EXAMINATION: THREE [...] Sign Date: 11/30/2022 4:57:49 AM Ordering Provider: LAMBERT STOVALL [facility] 06-20-2022 Hospital Discharge instructions Patient Education [...] a towel soaked in hot water. Or, billposting supervisor the shower and direct the warm spray onto your face. Using a vaporizer along with a menthol rub at night may also help soothe symptoms. An expectorant with guaifenesin may help thin nasal mucus and help your sinuses drain fluids. You can use an bcxt-ygk-jhwxbcr decongestant, unless a similar medicine was prescribed [...] use decongestants. They can raise blood pressure.) Ymbz-tky-piyeyor antihistamines may help if allergies contributed to [...] that don't go away in 10 days 9189-0992 [employer]. [address] [place] [address], [place] [address]. All rights reserved. This information is not [...] may prescribe medications to help relieve them. [phone] [employer]. [address] [place] [address]. All rights reserved. This information is not intended as a substitute for professional medical care. Always follow your healthcare professional's instructions. Follow Up Care 06/20/2022 14:28:21 With:KAITLYN WEAVER Address: [address] [place] [address] [place] [address] [phone] When:2-4 days [facility] 06-20-2022 Note Discharge Instructions Thank you for allowing [facility] to assist you with your healthcare needs. [...] KAITLYN WEAVER When Within 2-4 days Where: [address] [place] [address] [address] [facility] [place] [address] [phone] Allergies [facility] medication for hypertension (non-codified) Medications Please ask [...] Acetaminophen is a pain reliever and fever public health advisor. Dextromethorphan is a cough suppressant. It affects [...] may report side effects to FDA at 5-448-CVJ-3190. What other drugs will affect this medicine? Other drugs may interact with acetaminophen, dextromethorphan, and phenylephrine, including prescription and forc-fuq-njuxkrw medicines, vitamins, and herbal products. Tell each [...] to ensure that the information provided by [employer]. ('[employer]') is accurate, up-to-date, and complete, but no guarantee is made to that effect. Drug information contained herein may be time sensitive. [employer] information has been compiled for use by healthcare practitioners and consumers in the [place] and therefore [employer] does not warrant that uses outside of the [place] are appropriate, unless specifically indicated otherwise. [employer] drug information does not endorse drugs, diagnose patients or recommend therapy. [employer] drug information is an informational resource designed [...] effective or appropriate for any given patient. [employer] does not assume any responsibility for any aspect of healthcare administered with the aid of information [employer] provides. The information contained herein is not intended to cover all possible uses, directions, precautions, warnings, drug interactions, allergic reactions, or adverse effects. If you have questions about the drugs you are taking, check with your doctor, nurse or pharmacist. Copyright 8412-8273 [employer]. Version: 1.04. Revision Date: 04/24/2014. oxymetazoline nasal (ox ee me KIRTI oh mynor NAY rolan) 12 Hour Nasal, Afrin, Afrin No Drip Sinus, Allerest 12 Hour Nasal Gilbert, Dristan 12-Hour, Duramist Plus, Duration, Mucinex Full [...] may report side effects to FDA at 9-593-EXI-6744. What other drugs will affect oxymetazoline nasal? [...] all medications you use. This includes prescription, zsxz-gey-qdjfjpr, vitamin, and herbal products. Do not start [...] to ensure that the information provided by [employer]. ('[employer]') is accurate, up-to-date, and complete, but no guarantee is made to that effect. Drug information contained herein may be time sensitive. [employer] information has been compiled for use by healthcare practitioners and consumers in the [place] and therefore [employer] does not warrant that uses outside of the [place] are appropriate, unless specifically indicated otherwise. [employer] drug information does not endorse drugs, diagnose patients or recommend therapy. [employer] drug information is an informational resource designed [...] effective or appropriate for any given patient. [employer] does not assume any responsibility for any aspect of healthcare administered with the aid of information [employer] provides. The information contained herein is not intended to cover all possible uses, directions, precautions, warnings, drug interactions, allergic reactions, or adverse effects. If you have questions about the drugs you are taking, check with your doctor, nurse or pharmacist. Copyright 2361-8026 [employer]. Version: 4.03. Revision Date: 11/15/2012. Education Materials [...] a towel soaked in hot water. Or, billposting supervisor the shower and direct the warm spray onto your face. Using a vaporizer along with a menthol rub at night may also help soothe symptoms. An expectorant with guaifenesin may help thin nasal mucus and help your sinuses drain fluids. You can use an bbmo-ebb-vobtlxh decongestant, unless a similar medicine was prescribed [...] use decongestants. They can raise blood pressure.) Pntp-vrf-gbyingv antihistamines may help if allergies contributed to [...] that don't go away in 10 days 8009-6457 [employer]. [address] [place] [address]. All rights reserved. This information is not [...] may prescribe medications to help relieve them. 3925-2003 [employer]. [address] [place], [place] [address]. All rights reserved. This information is not intended as a substitute for professional medical care. Always follow your healthcare professional's instructions. Additional Information VACCINATE! IT SAVES LIVES! Members of the community who have not yet received the COVID-19 vaccine and would like to receive it can visit one of [facility] vaccine clinics. There are many vaccine clinic locations within the [facility]. For locations and available times, please visit [email or web address]. It is important to note that some COVID mobile vaccine clinics are held outdoors and may be canceled in rainy or stormy conditions. To learn more about pediatric vaccinations (ages 5-11), we invite you to visit the [facility] webpage. https://www.JustFabs.org/pag es/5609-Ualuz-Trgszzrzvns-Frequent fc-Eirlo-Dtztjeski.html To learn more about the COVID-19 vaccine, we invite you to visit the [facility] website for a list of frequently asked questions. [email or web address]/Patient l-fox-Osybxfdc/aklcb-Fkezlqr-Feihw ently_Asked-Questions.pdf [facility] Patient Portal Access Instructions: Stay connected with your healthcare team and access your personal medical information anytime with the [facility] Patient Portal. If you would like a full copy of your medical records please contact the [facility] Medical Records Department Monday through Monday between 8a.m. and 4:30p.m. Please follow the directions below to access the portal: 1.Access the email account you provided upon registration to the hospital.2.Look for an invitation email from [facility].3.Open the email and access the invitation link: Accept Invitation to [facility]4.Fill in the required york to create your account. Sign into www.[employer] with your username and password that you [...] you will allow to register on the [facility] Patient Portal for access to your information. You can also access the [facility] Patient Portal on the Shots. Simply click on Health Records under Health Data and then click on the [employer] logo. HOW TO SAFELY DISPOSE OF PRESCRIPTION [...] Call your local pharmacy or go to http://TripMark.Symetis/0Q7Lt7u to find one close to you.3.Make use of household items: Use cat litter or old coffee grounds to dispose medications if other options are not available. Mix your drugs with these household products, seal them in an airtight container and throw it into the garbage. Call [facility]: [phone] to be sure your drugs can be [...] been reviewed and explained to me and I,FANY NAJERA understand my current condition and have read and understand these discharge instructions. I have received a written copy of the plan/instructions. If I have questions, I am aware that I should contact my doctor. Patient/Machine Packer Signature: Date/Time: Relationship to Patient: ___ Witness Name/Signature: Date/Time: [facility] 06-20-2022 SARS-CoV-2 (COVID-19) RNA LUIS ANTONIO+probe [...] with a towel. Medicine You can take hnmk-abq-rcsjgtc medicine for pain, unless you were given [...] swelling or pus coming from the wound [phone] [employer]. [address] [place] [address]. All rights reserved. This information is not [...] wound Decreased movement around the injured area [phone] [employer]. [address] [place] [address], [place] [address]. All rights reserved. This information is not intended as a substitute for professional medical care. Always follow your healthcare professional's instructions. Follow Up Care 01/26/2022 17:30:04 With:KAITLYN WEAVER Address: [facility] [address] [place] [address]- [phone] When:3-7 days Comments:Schedule appointment for wound check.Daily wound care with dressing changes and antibiotic ointment.Use antibiotic (Keflex) as prescribed.Use Tylenol, Advil or Aleve for pain as needed.Watch for signs of infection.Return to the ED if symptoms worsen. [facility] 01-26-2022 Note Discharge Instructions Thank you for allowing [facility] to assist you with your healthcare needs. [...] the ED if symptoms worsen. Where: [address] [place] [address]- [phone] Allergies [facility] medication for hypertension (non-codified) Medications Please ask [...] with a towel. Medicine You can take voqj-are-yngtbcu medicine for pain, unless you were given [...] swelling or pus coming from the wound [phone] [employer]. [address] [place] [address], [place] [address]. All rights reserved. This information is not [...] wound Decreased movement around the injured area [phone] [employer]. [address] [place] [address], [place] [address]. All rights reserved. This information is not intended as a substitute for professional medical care. Always follow your healthcare professional's instructions. Additional Information VACCINATE! IT SAVES LIVES! Members of the community who have not yet received the COVID-19 vaccine and would like to receive it can visit one of [facility] vaccine clinics. There are many vaccine clinic locations within the [facility]. For locations and available times, please visit www.[email or web address].[place].or g. It is important to note that some COVID mobile vaccine clinics are held outdoors and may be canceled in rainy or stormy conditions. To learn more about pediatric vaccinations (ages 5-11), we invite you to visit the [facility] webpage. https://www.[facility].org/pag es/9128-Gkzzn-Eqeszlebnbt-Frequent me-Zavfb-Hlzczwyyc.html To learn more about the COVID-19 vaccine, we invite you to visit the [facility] website for a list of frequently asked questions. [email or web address]/Patient k-vsd-Qtxobcsj/rhnas-Eaunczv-Qgwlz ently_Asked-Questions.pdf [facility] Patient Portal Access Instructions: Stay connected with your healthcare team and access your personal medical information anytime with the [facility] Patient Portal. If you would like a full copy of your medical records please contact the [facility] Medical Records Department Monday through Monday between 8a.m. and 4:30p.m. Please follow the directions below to access the portal: 1.Access the email account you provided upon registration to the [facility].2.Look for an invitation email from [facility].3.Open the email and access the invitation link: Accept Invitation to [facility]4.Fill in the required york to create your [...] you will allow to register on the [facility] Patient Portal for access to your information. You can also access the [facility] Patient Portal on the Shots. Simply click on Health Records under Health Data and then click on the [employer] logo. HOW TO SAFELY DISPOSE OF PRESCRIPTION [...] Call your local pharmacy or go to http://TripMark.Symetis/7V5Em7b to find one close to you.3.Make use of household items: Use cat litter or old coffee grounds to dispose medications if other options are not available. Mix your drugs with these household products, seal them in an airtight container and throw it into the garbage. Call [facility]: [phone] to be sure your drugs can be [...] aware that I should contact my doctor. Patient/Machine Packer Signature: Date/Time: Relationship to Patient: ___ Witness Name/Signature: Date/Time: [facility] 01-26-2022 Note ORIGINAL EXAMINATION: THREE XRAY [...] Sign Date: 01/26/2022 6:20:00 PM Ordering Provider: ROCIO [facility] 01-26-2022 Note ORIGINAL EXAMINATION: THREE [...] Sign Date: 01/26/2022 6:20:00 PM Ordering Provider: ROCIO ARANA [facility] Evaluation + Plan note No data available for this section [facility] Evaluation note No assessment inform ation available [facility] Work Phone: Hospital Discharge instructions No data available for this section [facility] Progress note No data available for this section [facility] Reason for referral (narrative) No reason for referral information available [facility] Work Phone: Summary note BO Tom: PERFORM Event Display: Patient Summary Documents Authored Date: [id number] [facility] Chief Complaint and Reason for Visit Chief Complaint EORDER Chief Complaint E ORDER Chief Complaint Admit Date INT LABS November 04, 2024 5:58a m Family History No Family History Records Found Relationship Condition Age at Onset Recorded Date/T sammy Unknown Family History?Heart Disease Unknown September 08, 2015 1:30am Family History?No pertinent history Unkno wn September 08, 2015 1:30am Relationship Condition Age at Onset Recorded Date/T sammy Unknown Family History?Heart Disease Unknown September 08, 2015 12:30am Family History?No pe rtinent history Unknown September 08, 2015 12:30am Advance Directives No Advanced Directives Records Found Advance Directive Response Recorded Date/ Time Advance Directives No September 07 12:40am Living Will No September 08, 2015 12:40am Power of Lens Polisher No September 07 12:40am Advance Directive Response Recorded Date/ Time Advance Directives No September 06 11:40pm Living Will No September 07, 2015 11:40pm Power of Lens Polisher No September 06 11:40pm Advance Directive Response Recorded Date/ Time Advance Directives No September 07 12:40am Summary Purpose Additional Source Comments Care Team (unrecognized sect ion and content) Care Team Personnel Name: WEAVER, KAITLYN M ACCOUNTS PAYABLE OR RECEIVABLE CLERK-TRANSITION SPECIALIST Position: P4 Advanced Practice Nurse Med Service: Active Provider Member Role: Primary Care Physician Address: Address: [address] [place] [address]- Care Team Related Persons Name: RODERICK NAJERA Address: Home [address] [place], [place] [id number] Care Team Personnel Name: KAITLYN WEAVER ACCOUNTS PAYABLE OR RECEIVABLE CLERK-TRANSITION SPECIALIST Position: P4 Advanced Practice Nurse Member Role: Primary Care Physician Address: [facility] [place] [address]- Name: MARLO Gilbert Position: AO RN Member Role: ED RN Name: TORREY KAMARA MD Position: ED Physician Member Role: Attending Physician Address: Address: [facility] [address] [place] [address]- Care Team Related Persons Name: RODERICK NAJERA Address: Home [address] [place], [place] [id number] Goals (unrecognized section and content) Goals may be documented in a n alternate section Care Teams (unrecognized sec tion and content) Team Status: Active Member Role Status Dates Dustin Rubio MD Family Provider Active Dr. Mejia Swain MD Primary Care Provider Active Team Status: Inactive Member Role Status Dates Dr. Mejia Swain MD Primary Care Provider, Attend ing Provider Active Team Status: Inactive Member Role Status Dates Dr. Mejia Swain MD Primary Care Pr ovider, Attending Provider, Referring Provider Active Team Status: Inactive Member Role Status Dates Dr. Mejia Swain MD Primary Care Provider Active Start: July 24, 2024 End: July 24, 2024 Dr. Mejia Swain MD Attending Provider Active Start: July 24, 2024 End: July 24, 2024 Dr. Mejia Swain MD Referring Provider Active Start: July 24, 2024 End: July 24, 2024 Team Status: Inactive Member Role Status Dates Dr. Mejia Swain MD Primary Care Provider Active Start: November 04, 2024 End: November 04, 2024 Dr. Mejia Swain MD Attending Provider Active Start: November 04, 2024 End: November 04, 2024 Dr. Mejia Swain MD Referring Provider Active Start: November 04, 2024 End: November 04, 2024 (unrecognized sect ion and content) No Status Records FoundNo Status Records Found INFORMATION SOURCE (unrecogn ized section and content) DATE CREATED AUTHOR 12/22/2023 [facility] ([place]) DATE CREATED AUTHOR AUTHOR'S ORGANIZ ATION 11/09/2024 [facility] FOR RECORDS PERTAINING TO PATIENTS WHO ARE [...] BE BASED ON THE PRIMARY CLINICAL RECORDS. [employer] [facility]. provides no warranty or guarantee of the accuracy or completeness of information in this document.
[2025-04-26 07:08] LABS: Hematocrit 45.3 % (40-54); Hemoglobin 15.5 g/dL (13.0-16.5); Immature Granulocytes Count 0.020 X10^3/uL (0.0-0.0); Mean Corp Hgb Conc 34.2 g/dL (32-36); Mean Corpuscular Volume 89.2 fL (80-94); Mean Platelet Vol. 9.7 fl (6.2-12.0); NRBC Flagged by Analyzer 0 % (0-5); Platelet Count 285 K/mm3 (150-450); RBC Distribution Width CV 13.3 % (11.6-14.6); RBC Distribution Width SD 43.8 fl (35.1-43.9); Red Blood Count 5.08 M/mm3 (4.6-6.2); White Blood Count 5.7 K/mm3 (4.4-11.0)
[2025-04-26 07:20] LABS: Color, Urine Yellow (Yellow); Glucose, Dipstick Normal (Normal); Ketone-Dipstick Negative (Negative); Leukocyte Esterase-Dipstick Negative /ul (Negative); Nitrite-Dipstick Negative (Negative); Occult Blood-Urine 10 /ul (Negative); Protein-Dipstick 15 mg/dl (Negative); Specific Gravity, Urine 1.010 (1.002-1.030); Urine Bilirubin Dipstick Negative (Negative)
[2025-04-26 07:51] LABS: AST(SGOT) 23 U/L (<=37); Alanine Aminotransfer ALT/SGPT 21 U/L (<=46); Albumin, Serum 4.0 g/dL (3.5-5.0); Alkaline Phosphatase 68 U/L (40-129); Anion Gap 10 (5-15); BUN 12 mg/dL (4-19); BUN/Creat Ratio 13.8 RATIO (10-20); Calcium,Total 9.0 mg/dL (7.6-11.0); Carbon Dioxide 25.5 mmol/L (21.0-32.0); Chloride 103 mmol/L (98-108); Cholesterol 176 mg/dL (<=200); Globulin 3.2 g/dL (2.2-4.2); Glucose 119 mg/dL (70-99); Low Density Lipoprotein Calc. 125 mg/dL; Magnesium 2.2 mg/dL (1.5-2.2); Potassium 3.7 mmol/L (3.3-5.1); Triglycerides 120 mg/dL; Very Low Density Lipoprotein 24 mg/dL (5-40); cholesterol:hdl ratio screen 6.07
== END | disposition home or self-care (01) ==
LOC: LAB 06:56
PROVIDERS: PCP Family Medicine; Referring Provider Family Medicine; Visit Provider Family Medicine
DX: R73.02 Impaired glucose tolerance (oral) (principal); I10 Essential (primary) hypertension
CPT/HCPCS: 36415; 80053; 80061; 81001; 83036; 83735; 85025